=== PATIENT | female | born 1995 | race Caucasian/White ===

== ENCOUNTER 2017-04-24 23:16 | Outpatient (CLI) | payer OTHER, SELFPAY ==
[2017-04-25 00:21] VITALS: BMI 21.2
[2017-04-25 00:58] LABS: Microscopic, Urine URINE MICROSCOPIC (MICROSCOPIC)
[2017-04-25 01:02] VITALS: BP 108/64; PULSE 91; RESP 16; TEMP 36.8; O2SAT 97; BMI 21.2
[2017-04-25 01:05] LABS: Appearance,Urine CLEAR (Clear); Bilirubin,Urine Negative (Negative); Blood, Urine Negative (Negative); Color,Urine YELLOW (Yellow); Glucose,Urine (UA) Negative (Negative); Ketones,Urine Negative (Negative); Leukocyte Esterase,Urine Negative (Negative); Nitrate,Urine Negative (Negative); Protein,Urine Negative (Negative); Urobilinogen,Urine 0.2 EU/dl (0.2)
[2017-04-25 01:10] LABS: Amphetamine/Metha Screen,Urine Negative ng/mL (<1000); Barbiturates Screen,Urine Negative ng/mL (<200); Benzodiazepines Screen,Urine Negative ng/mL (200); Cannabinoid Screen,Urine Negative ng/mL (<50); Cocaine Screen,Urine Negative ng/g (<300); Methadone Screen,Urine Negative ng/mL (<300); Opiate Screen,Urine Negative ng/mL (<300); Phencyclidine Screen,Urine Negative ng/mL (<25)
[2017-04-25 01:13] LABS: Bacteria,Urine 1+ /lpf
== END 2017-04-25 01:35 | disposition home or self-care (01) ==
LOC: OBOUT 23:16 → OB 23:17 → OBOUT 23:21 → OB 04-25 00:17
PROVIDERS: Family Provider Internal Medicine; PCP Internal Medicine; Visit Provider Nurse Practitioner Obstetrics & Gynecology
DX: Z34.90 Encounter for supervision of normal pregnancy, unspecified, unspecified trimester (principal)
CPT/HCPCS: 59025; 80305; 81001

== ENCOUNTER → 2017-05-13 16:23 | Outpatient (REF) | payer OTHER, SELFPAY | LOC: LAB 16:23 | PROVIDERS: Visit Provider Obstetrics & Gynecology | DX: Z36.85 Encounter for antenatal screening for Streptococcus B (principal) | CPT/HCPCS: 86403 ==

== ENCOUNTER 2017-05-23 21:43 | Outpatient (CLI) | payer OTHER, SELFPAY ==
[2017-05-23 21:58] VITALS: BMI 23.3
[2017-05-23 22:10] VITALS: BP 100/66; PULSE 97; RESP 18; TEMP 36.7; O2SAT 98; BMI 23.3
[2017-05-23 22:38] LABS: Microscopic, Urine URINE MICROSCOPIC (MICROSCOPIC)
[2017-05-23 22:39] LABS: Appearance,Urine CLEAR (Clear); Bilirubin,Urine Negative (Negative); Blood, Urine Negative (Negative); Color,Urine YELLOW (Yellow); Glucose,Urine (UA) Negative (Negative); Ketones,Urine Negative (Negative); Leukocyte Esterase,Urine Negative (Negative); Nitrate,Urine Negative (Negative); Protein,Urine Negative (Negative); Urobilinogen,Urine 0.2 EU/dl (0.2)
[2017-05-23 22:52] LABS: Amphetamine/Metha Screen,Urine Negative ng/mL (<1000); Barbiturates Screen,Urine Negative ng/mL (<200); Benzodiazepines Screen,Urine Negative ng/mL (200); Cannabinoid Screen,Urine Negative ng/mL (<50); Cocaine Screen,Urine Negative ng/g (<300); Methadone Screen,Urine Negative ng/mL (<300); Opiate Screen,Urine Negative ng/mL (<300); Phencyclidine Screen,Urine Negative ng/mL (<25)
== END 2017-05-24 00:01 | disposition home or self-care (01) ==
LOC: OBOUT 21:49 → OB 21:50
PROVIDERS: PCP Obstetrics & Gynecology; Visit Provider Obstetrics & Gynecology
DX: O26.893 Other specified pregnancy related conditions, third trimester (principal); Z3A.37 37 weeks gestation of pregnancy; M54.5 Low back pain
CPT/HCPCS: 59025; 80305; 81001; 96372

== ENCOUNTER 2017-05-30 17:14 | Outpatient (CLI) | payer OTHER, SELFPAY ==
[2017-05-30 17:45] VITALS: BP 115/61; PULSE 78; RESP 20; TEMP 36.7; O2SAT 100; BMI 21.2
[2017-05-30 18:54] LABS: Microscopic, Urine URINE MICROSCOPIC (MICROSCOPIC)
[2017-05-30 19:03] LABS: Appearance,Urine CLEAR (Clear); Bilirubin,Urine Negative (Negative); Blood, Urine Negative (Negative); Color,Urine YELLOW (Yellow); Glucose,Urine (UA) Negative (Negative); Ketones,Urine Negative (Negative); Leukocyte Esterase,Urine Negative (Negative); Nitrate,Urine Negative (Negative); PH,Urine 7.5 (5.0-8.5); Protein,Urine Negative (Negative); Specific Gravity, Urine 1.015 (1.005-1.030); Urobilinogen,Urine 0.2 EU/dl (0.2)
--- NOTE | 2017-05-30 19:07 | US_ITS ---
US OB biophysical profile INDICATION: ITS.REASON: DECELERATIONS . TECHNIQUE: ultrasound transabdominal scanning/ MW COMPARISON: No previous relevant studies FINDINGS Single viable intrauterine gestation. Cephalic position. The cervix appears satisfactory. Complete survey performed and was unremarkable on the submitted images as in PACS.No discrete anomalies identified on survey imaging by technologist Active fetus. . . Survey of brain & ventricles. Face and neck survey unremarkable. Diaphragm & views chest unremarkable. . spine: Survey of the spine satisfactory with no anomalies identified nor imaged Amniotic fluid.-Adequate. The AUBREY is 11.0 cm measurements:. Average ultrasound age 35 weeks 4 days. Gestational age 38 weeks 3 days. BPD = 8.4 cm equaling 33 weeks 6 days. OFD = 11.21 cm equaling 37 weeks 1 day HC = 31.12 cm equaling 34 weeks 6 days AC = 31.77 cm equaling 35 weeks 5 days FL = 7.36 and basically 37 weeks 5 days Heart rate = not measured. Umbilical artery peak systolic velocity is 38.8 cm/s and end-diastolic velocity is 16.4 cm/s. The RI is 0.58 and SD ratio is 2.4 The biophysical profile is 8 out of 8 IMPRESSION: Single viable intrauterine gestation in cephalic position currently. 35 weeks 4 daysaverage ultrasound age with today's measurements Anterior placenta. Active fetus. No discrete abnormalities on the ultrasound survey.
[2017-05-30 19:17] LABS: Basophils % 0.2 % (0.1-2.0); Eosinophils # 0.1 K/mm3 (0.0-0.4); Eosinophils % 0.6 % (0.1-12.0); Hematocrit 36.3 % (37.0-47.0); Hemoglobin 12.5 g/dL (12.2-16.2); Lymphocytes # 3.2 K/mm3 (0.7-4.5); Lymphocytes % 23.7 K/mm3 (10-50); Mean Corpuscular HGB Conc 34.6 g/dL (31.8-35.4); Mean Corpuscular Hemoglobin 32.6 pg (27.0-31.2); Mean Corpuscular Volume 94.4 fl (81-99); Mean Platelet Volume 9.7 fl (7.4-10.4); Monocytes # 0.5 K/mm3 (0.1-1.0); Neutrophils # 9.5 K/mm3 (1.8-7.8); Neutrophils % 71.5 % (37.0-80.0); Platelet Count 266 K/mm3 (142-424); Red Blood Count 3.84 M/mm3 (4.20-5.40); Red Cell Distribution Width 13.4 % (11.5-17.5); White Blood Count 13.3 K/mm3 (4.8-10.8)
[2017-05-30 19:49] LABS: Bacteria,Urine Trace /lpf; WBC,Urine Occasional #/hpf (0-3)
--- NOTE | 2017-05-30 20:00 | HMH.ACPN2 ---
Internal Medicine - PN: Subj *Date: 05/30/17 *Time: 20:00 Interval history: She is a 21-year-old 2 para 1 who was having a few contractions. She was out walking quite a bit this afternoon. She came into labor and delivery. She is due for a repeat section in about 5 days time. Her nonstress test was reactive although she did have a couple of variable decelerations to the 90 range and they lasted for up to 2 minutes. They have since recovered. She has received IV fluids 1 dose of Brethine. She is no longer having any contractions. The nonstress test is reactive and looks very good. She had an ultrasound that showed adequate fluid with an amniotic fluid index of 11 there was good breathing movements and movement. The SD ratio is normal. As result of the now reassuring heart rate tracing, the fact that she has no further contractions and the fact that the ultrasound showed good growth and fluid levels we will send her home to follow-up on Friday for her . She will return if she has any further episodes of contractions. Analysis is negative. Exam Vital signs and Labs for Last 24 Hours: Temp Pulse Resp BP Pulse Ox 98.0 F 78 20 115/61 100 05/30/17 17:45 05/30/17 17:45 05/30/17 17:45 05/30/17 17:45 05/30/17 17:45 Laboratory Results - last 24 hr 05/30/17 17:25: Urine Color Yellow, Urine Appearance Clear, Urine pH 7.5, Ur Specific [place] 1.015, Urine Protein Negative, Urine Glucose (UA) Negative, Urine Ketones Negative, Urine Blood Negative, Urine Nitrate Negative, Urine Bilirubin Negative, Urine Urobilinogen 0.2, Ur Leukocyte Esterase Negative, Urine RBC None, Urine WBC Occasional, Ur Squamous Epith Cells 10-20, Urine Bacteria Trace 05/30/17 19:00: WBC 13.3 H, RBC 3.84 L, Hgb 12.5, Hct 36.3 L, MCV 94.4, MCH 32.6 H, MCHC 34.6, RDW 13.4, Plt Count 266, MPV 9.7, Neut % (Auto) 71.5, Lymph % (Auto) 23.7, Ada % (Auto) 4.0, Eos % (Auto) 0.6, Baso % (Auto) 0.2, Neut # (Auto) 9.5 H, Lymph # (Auto) 3.2, Ada # (Auto) 0.5, Eos # (Auto) 0.1, Baso # (Auto) 0.0 I & O for Last 24 hours: Intake & Output 05/28/17 05/29/17 05/30/17 05/31/17 11:59 11:59 11:59 11:59 Weight 120 lb - Constitutional no acute distress Assessment and Plan (1) False labor after 37 completed weeks of gestation Current visit: Yes Status: Acute Category: Medical Code(s): O47.1 - False labor at or after 37 completed weeks of gestation - Assessment and plan all Dx Assessment and Plan for all problems:: She has received fluids and 1 dose of Brethine. She is no longer erik. The nonstress test is reactive. The ultrasound is reassuring with good growth, normal amniotic fluid and biophysical profile. She will be discharged home to follow-up in 5 days time for her .
--- NOTE | 2017-05-30 20:03 | P.PN_ITS ---
Internal Medicine - PN: Subj *Date: 05/30/17 *Time: 20:00 Interval history: She is a 21-year-old 2 para 1 who was having a few contractions. She was out walking quite a bit this afternoon. She came into labor and delivery. She is due for a repeat section in about 5 days time. Her nonstress test was reactive although she did have a couple of variable decelerations to the 90 range and they lasted for up to 2 minutes. They have since recovered. She has received IV fluids 1 dose of Brethine. She is no longer having any contractions. The nonstress test is reactive and looks very good. She had an ultrasound that showed adequate fluid with an amniotic fluid index of 11 there was good breathing movements and movement. The SD ratio is normal. As result of the now reassuring heart rate tracing, the fact that she has no further contractions and the fact that the ultrasound showed good growth and fluid levels we will send her home to follow-up on Friday for her C- section. She will return if she has any further episodes of contractions. Analysis is negative. Exam Vital signs and Labs for Last 24 Hours: Temp Pulse Resp BP Pulse Ox 98.0 F 78 20 115/61 100 05/30/17 17:45 05/30/17 17:45 05/30/17 17:45 05/30/17 17:45 05/30/17 17:45 Laboratory Results - last 24 hr 05/30/17 17:25: Urine Color Yellow, Urine Appearance Clear, Urine pH 7.5, Ur Specific [place] 1.015, Urine Protein Negative, Urine Glucose (UA) Negative, Urine Ketones Negative, Urine Blood Negative, Urine Nitrate Negative, Urine Bilirubin Negative, Urine Urobilinogen 0.2, Ur Leukocyte Esterase Negative, Urine RBC None, Urine WBC Occasional, Ur Squamous Epith Cells 10-20, Urine Bacteria Trace 05/30/17 19:00: WBC 13.3 H, RBC 3.84 L, Hgb 12.5, Hct 36.3 L, MCV 94.4, MCH 32.6 H, MCHC 34.6, RDW 13.4, Plt Count 266, MPV 9.7, Neut % (Auto) 71.5, Lymph % (Auto) 23.7, [place] % (Auto) 4.0, Eos % (Auto) 0.6, Baso % (Auto) 0.2, Neut # ( Auto) 9.5 H, Lymph # (Auto) 3.2, [place] # (Auto) 0.5, Eos # (Auto) 0.1, Baso # ( Auto) 0.0 I & O for Last 24 hours: Intake & Output 05/28/17 05/29/17 05/30/17 05/31/17 11:59 11:59 11:59 11:59 Weight 120 lb - Constitutional no acute distress Assessment and Plan (1) False labor after 37 completed weeks of gestation Current visit: Yes Status: Acute Category: Medical Code(s): O47.1 - False labor at or after 37 completed weeks of gestation - Assessment and plan all Dx Assessment and Plan for all problems:: She has received fluids and 1 dose of Brethine. She is no longer erik. The nonstress test is reactive. The ultrasound is reassuring with good growth, normal amniotic fluid and biophysical profile. She will be discharged home to follow-up in 5 days time for her .
== END 2017-05-30 22:08 | disposition home or self-care (01) ==
LOC: OBOUT 17:15 → OB 17:17
PROVIDERS: PCP Obstetrics & Gynecology; Visit Provider Nurse Practitioner Obstetrics & Gynecology
DX: O60.03 Preterm labor without delivery, third trimester (principal); Z3A.38 38 weeks gestation of pregnancy
CPT/HCPCS: 36415; 59025; 76819; 76820; 81001; 85025; 86850; 94761; 96360; 96361; 96372; J0595

== ENCOUNTER 2017-06-03 04:58 | Inpatient (IN) | payer OTHER, SELFPAY ==
[2017-06-03] VITALS (11 sets, daily range): BP systolic 110–125; BP diastolic 55–75; PULSE 59–82; RESP 14–18; TEMP 36.3–37; O2SAT 97–100; BMI 22.1; BMI 22.2
[2017-06-03 06:34] LABS: Basophils % 0.3 % (0.1-2.0); Eosinophils # 0.1 K/mm3 (0.0-0.4); Eosinophils % 0.6 % (0.1-12.0); Hematocrit 33.9 % (37.0-47.0); Hemoglobin 11.5 g/dL (12.2-16.2); Lymphocytes # 2.2 K/mm3 (0.7-4.5); Lymphocytes % 20.9 K/mm3 (10-50); Mean Corpuscular Hemoglobin 31.9 pg (27.0-31.2); Mean Corpuscular Volume 93.8 fl (81-99); Monocytes # 0.5 K/mm3 (0.1-1.0); Monocytes % 4.6 % (1.7-9.3); Neutrophils # 7.9 K/mm3 (1.8-7.8); Neutrophils % 73.6 % (37.0-80.0); Platelet Count 263 K/mm3 (142-424); Red Blood Count 3.61 M/mm3 (4.20-5.40); Red Cell Distribution Width 13.4 % (11.5-17.5); White Blood Count 10.7 K/mm3 (4.8-10.8)
[2017-06-03 06:46] LABS: Appearance,Urine CLEAR (Clear); Bilirubin,Urine Negative (Negative); Blood, Urine Negative (Negative); Color,Urine YELLOW (Yellow); Glucose,Urine (UA) Negative (Negative); Ketones,Urine Negative (Negative); Leukocyte Esterase,Urine Negative (Negative); Microscopic, Urine URINE MICROSCOPIC (MICROSCOPIC); Nitrate,Urine Negative (Negative); Protein,Urine Negative (Negative); Urobilinogen,Urine 0.2 EU/dl (0.2)
[2017-06-03 06:48] LABS: Alanine Aminotransferase 13 U/L (12-78); Albumin Level 2.7 gm/dL (3.4-5.0); Albumin/Globulin Ratio 0.7 (1.1-1.8); Alkaline Phosphatase 116 U/L (46-116); Anion Gap 13.7 mEq/L (5-15); Aspartate Amino Transferase 6 U/L (15-37); Bilirubin,Total 0.2 mg/dL (0.2-1.0); Blood Urea Nitrogen 8 mg/dL (7-18); Calcium 8.7 mg/dL (8.5-10.1); Carbon Dioxide 22 mmol/L (21.0-32.0); Chloride 106 mmol/L (98-107); Creatinine Clearance Estimated 140 mL/min (0-300); Creatinine,Serum 0.57 mg/dL (0.55-1.02); Estimated Glomerular Filt Rate 134 ml/min (>60); GFR (African American) 162 ML/MIN (>60); Glucose 88 mg/dL (74-106); Potassium 3.7 mmoL/L (3.5-5.1); Sodium 138 mmol/L (136-145); Total Protein,Serum 6.7 gm/dL (6.4-8.2)
[2017-06-03 07:02] LABS: Bacteria,Urine Trace /lpf; Squamous Epithelial Cell,Urine Occasional #/hpf (0-5)
--- NOTE | 2017-06-03 07:07 | P.PN_ITS ---
[facility] Anesthesia Checklist - Structural Data Admitted From: Home Planned Operative Procedure/s: c/section Consent for Planned Operative Procedure(s) Verified: Yes Verified Documents: Surgical Consent - Airway Assessment C-Spine Mobility Assessed: Yes TMJ Mobility Assessed: Yes Dentition: Good Dentition - Neurological Assessment Level of Consciousness: Awake, Alert - Anesthesia Plan Anesthesia Risk discussed: Yes Anesthesia Plan: Verified ASA Class: II Anesthesia Type: Spinal [facility] Anesthesia HX Other Surgeries: Yes: No Previous Surgery, , Other Amputation: No Fractures: No *Family Hx:: No significant family history, Hypertension
[2017-06-03 07:39] LABS: Cord Blood PH 7.46 (7.35-7.45)
--- NOTE | 2017-06-03 08:10 | HMH.OPNOTE ---
Date of procedure: 06/03/17 Pre-op Diagnosis:: 1. Intrauterine . 2. Previous section. Post-op Diagnosis:: Same, 8/9, 6 lbs. 14 oz., 19 inch male , born at 0732. Extensive adhesions. Procedure performed:: Repeat low transverse cervical section and extensive lysis of adhesions. Surgeon:: Mesfin Carter MD Refractory Mixer(s):: YULIA Kendall CONTACT LENS EDGE BUFFER:: Otto Quintanilla Anesthesia: spinal Estimated blood loss (mL): 400 Operative findings:: 1. Term intrauterine , delivered. 2. Operative note:: After the patient was prepped and draped in usual fashion and spinal anesthesia was admitted incision was made to the previous incision, and the fat and fascia was in usual fashion, bleeders being clamped and coagulated along the way. The peritoneum was entered with Metzenbaum scissors, and extended above and below. There were extensive omental adhesions to the anterior abdominal wall, and these were taken down with a combination of sharp dissection and cautery. The bladder peritoneum was sharply and bluntly dissected from the area of incision, and the bladder was protected with a bladder blade. The uterus was entered in a low transverse fashion with a knife, and the incision was extended bluntly, bilaterally. The amniotic sac was ruptured for clear fluid. The baby was found to be in the OA position of the vertex and, with appropriate fundal pressure, the head was easily delivered. There was no nuchal cord, nor was there any meconium. The baby's nasal and oropharynx were bulb suctioned, and the baby cried spontaneously on the abdomen, as was the liver. The cord was clamped and cut, 3 vessels are noted to be within the cord, and cord blood was obtained. The cord pH was 7.46. The baby was handed into the arms of the attending massage therapy instructor, Dr. Kelley, who assigned Apgars of 8 at 1 minute and 914 ounce 19 inch male , born at 0732. The baby was taken to the nursery in excellent condition, along with the patient's mother, would been present in the operating room. The placenta was delivered manually, intact. A ring forceps was used to assure adequate drainage of the cervix; this was then passed off the field, as a nonsterile instrument. The uterus was closed in 2 layers, the first a running locked suture of #1 Vicryl as an endometrial layer, followed by a running unlocked suture of #1 Vicryl as a myometrial layer, imbricating over the first. The bladder peritoneum was closed with a running unlocked suture of 2-0 Vicryl. Blood and clots were then swept from the gutters, and the tubes and ovaries were inspected and found to be normal. The peritoneum was grasped with 3 Anita clamps, and closed with a running semi-locked suture of 0 Vicryl. The muscle was approximated with a running unlocked suture of 0 Vicryl. The fascia was closed with a running locked suture of #1 Vicryl. The subcutaneous fat and Jerad's fascia were closed with a running unlocked suture of 2-0 Vicryl. The skin was closed with a subcuticular suture of 3-0 Vicryl, and appropriately dressed. The sponge and needle counts correct. The urine was clear in Morillo catheter. The estimated blood loss was 400 cc. A pelvic examination at the close of the procedure expressed blood and clots from the involuting uterus, with IV Pitocin running. The patient tolerated the procedure well, was taken to PACU in excellent condition. Her blood type is A+. Rubella titer is immune. She plans to breast-feed. Condition: stable Disposition: PACU Specimens:: None Complications:: None
--- NOTE | 2017-06-03 08:11 | P.PN_ITS ---
[facility] Anesthesia Record Part I Intake, IV Amount: 1,300 Estimated blood loss (mL): 600 Urine output (mL): 450 Blood Pressure: 110/72 SaO2: 100 Pulse Rate: 82 Respiratory Rate: 14 Temperature: 97.6 F Patient is:: Awake, Stable Stable to PACU at:: 08:10
--- NOTE | 2017-06-03 08:11 | HMH.ANESII ---
[facility] Anesthesia Record Part II Discharge Time: 08:40 Destination: Obstetric PACU nurse assessment reviewed?: Yes Patient Condition:: Good Anesthesia Complications:: None
--- NOTE | 2017-06-03 08:15 | P.OP_ITS ---
Date of procedure: 06/03/17 Pre-op Diagnosis:: 1. Intrauterine . 2. Previous section. Post-op Diagnosis:: Same, 8/9, 6 lbs. 14 oz., 19 inch male , born at 0732. Extensive adhesions. Procedure performed:: Repeat low transverse cervical section and extensive lysis of adhesions. Surgeon:: Mesfin Carter MD Bush Regenerator(s):: YULIA Kendall [employer]ENHADEN [employer] MEMBER:: Otto Quintanilla Anesthesia: spinal Estimated blood loss (mL): 400 Operative findings:: 1. Term intrauterine , delivered. 2. Operative note:: After the patient was prepped and draped in usual fashion and spinal anesthesia was admitted incision was made to the previous incision, and the fat and fascia was in usual fashion, bleeders being clamped and coagulated along the way. The peritoneum was entered with Metzenbaum scissors, and extended above and below. There were extensive omental adhesions to the anterior abdominal wall, and these were taken down with a combination of sharp dissection and cautery. The bladder peritoneum was sharply and bluntly dissected from the area of incision, and the bladder was protected with a bladder blade. The uterus was entered in a low transverse fashion with a knife, and the incision was extended bluntly, bilaterally. The amniotic sac was ruptured for clear fluid. The baby was found to be in the OA position of the vertex and, with appropriate fundal pressure, the head was easily delivered. There was no nuchal cord, nor was there any meconium. The baby's nasal and oropharynx were bulb suctioned, and the baby cried spontaneously on the abdomen, as was the liver. The cord was clamped and cut, 3 vessels are noted to be within the cord , and cord blood was obtained. The cord pH was 7.46. The baby was handed into the arms of the attending construction site crossing guard, Dr. Kelley, who assigned Apgars of 8 at 1 minute and 914 ounce 19 inch male , born at 0732. The baby was taken to the nursery in excellent condition, along with the patient's mother, would been present in the operating room. The placenta was delivered manually, intact. A ring forceps was used to assure adequate drainage of the cervix; this was then passed off the field, as a nonsterile instrument. The uterus was closed in 2 layers, the first a running locked suture of #1 Vicryl as an endometrial layer, followed by a running unlocked suture of #1 Vicryl as a myometrial layer, imbricating over the first. The bladder peritoneum was closed with a running unlocked suture of 2-0 Vicryl. Blood and clots were then swept from the gutters, and the tubes and ovaries were inspected and found to be normal. The peritoneum was grasped with 3 Anita clamps, and closed with a running semi-locked suture of 0 Vicryl. The muscle was approximated with a running unlocked suture of 0 Vicryl. The fascia was closed with a running locked suture of #1 Vicryl. The subcutaneous fat and Jerad's fascia were closed with a running unlocked suture of 2-0 Vicryl. The skin was closed with a subcuticular suture of 3-0 Vicryl, and appropriately dressed. The sponge and needle counts correct. The urine was clear in Morillo catheter. The estimated blood loss was 400 cc. A pelvic examination at the close of the procedure expressed blood and clots from the involuting uterus, with IV Pitocin running. The patient tolerated the procedure well, was taken to PACU in excellent condition. Her blood type is A+. Rubella titer is immune. She plans to breast -feed. Condition: stable Disposition: PACU Specimens:: None Complications:: None
[2017-06-03 09:16] LABS: Hematocrit 36.6 % (37.0-47.0); Hemoglobin 12.4 g/dL (12.2-16.2)
--- NOTE | 2017-06-03 09:54 | SUR.OPER ---
0732-viable infant male born at this time
--- NOTE | 2017-06-03 10:14 | PC.NURSE ---
started per SILVER Garcia
[2017-06-03 11:54] LABS: Microscopic,Cath URINE MICROSCOPIC (MICROSCOPIC)
[2017-06-03 11:56] LABS: Appearance,Urine/Cath CLEAR (Clear); Bilirubin,Cath Negative (Negative); Blood, Urine/Cath Negative (Negative); Color,Urine/Cath YELLOW (Yellow); Glucose,Urine/Cath (UA) Negative (Negative); Ketones,Urine/Cath Negative (Negative); Leukocyte Esterase,Cath Negative (Negative); Nitrate,Cath Negative (Negative); Protein,Urine/Cath Negative (Negative); Specific Gravity, Urine/Cath <= 1.005 (1.005-1.030); Urobilinogen,Cath 0.2 EU/dl (0.2)
[2017-06-03 12:09] LABS: Bacteria,Urine/Cath TRACE /lpf; WBC,Urine/Cath Occasional #/hpf (0-3)
--- NOTE | 2017-06-03 13:48 | HMH.PHAVTE ---
[facility] Pharmacy VTE Monitoring - Patient Demographics Admission date: 06/03/17 Report Date: 06/03/17 Time: 13:48 Allergies/Adverse Reactions: Patient Allergies kiwi Allergy (Mild, Verified 05/26/17 13:42) latex Allergy (Mild, Verified 05/26/17 13:42) Height: 1.6 m Weight: 56.961 kg - VTE Risk Labs: VTE Related Lab Results Hgb 12.4 g/dL (12.2-16.2) 06/03/17 09:01 Hct 36.6 % (37.0-47.0) L 06/03/17 09:01 Plt Count 263 K/mm3 (142-424) 06/03/17 05:20 BUN 8 mg/dL (7-18) 06/03/17 05:20 Creatinine 0.57 mg/dL (0.55-1.02) 06/03/17 05:20 Estimated Creat Clear 140 mL/min (0-300) 06/03/17 05:20 - Prophylaxis VTE Prophylaxis Ordered?: Yes Types of VTE Prophylaxis: IPCS Knee High Location of Applied Device: Bilateral Lower Extremeties - VTE Diagnosis Confirmed Treatment or plan recommended: Continue Current Treatment
--- NOTE | 2017-06-03 19:30 | PC.NURSE ---
Report received from Sushant Sharma RN
--- NOTE | 2017-06-04 00:30 | PC.NURSE ---
Report received from AwildaRN
--- NOTE | 2017-06-04 07:09 | PC.NURSE ---
REPORT GIVEN TO SBRN
[2017-06-04 07:42] LABS: Hematocrit 33.3 % (37.0-47.0); Hemoglobin 11.4 g/dL (12.2-16.2)
--- NOTE | 2017-06-04 11:12 | SW/DCPLANNER ---
RECEIVED REFERRAL FOR THIS PATIENT WHO DELIVERED A LIVE BORN MAKE VIA STATING VERIFY THAT PATIENT HAS EVERYTHING SHE NEEDS TO DISCHARGE HOME.... WENT IN TO SEE PATIENT THIS MORNING, PATIENT WAS ON THE PHONE, BABY'S DADDY WAS A SLEEP AND GRANDFATHER WAS SITTING IN THE CHAIR BY PATIENT... SHE STATED SHE LIVES IN [place] WITH HER PARENTS AND IS GOING TO RETURN BACK THERE WITH THEM, SHE HAS A ONE YEAR OLD DAUGHTER AND SHE RECEIVES WIC, FOODSTAMPS AND HANDS PROGRAM.. SHE CHOSE DR CORDOVA THE BABYS DOCTOR. SHE HAS NO DRUG HISTORY DOCUMENTED BUT PATIENT SEEMS TO BE SIMPLE MINDED. WILL FOLLOW UP WITH PRO[employer] INSPECT[employer] TO SEE IF THEY HAVE ANYTHING ON THE OTHER CHILD SINCE I AM NOT SURE SHE HAS THE CAPABILITIES OF CARING FOR 2 BABYS... HER DISCHARGE PLAN IS FOR FRIDAY AT THIS TIME...
--- NOTE | 2017-06-04 11:41 | HMH.ACPN2 ---
Internal Medicine - PN: Subj *Date: 06/04/17 *Time: 11:41 Interval history: This is /postop day #1. The patient is afebrile. Vital signs stable. Wound clean. Abdomen soft. Lochia normal. Uterine fundus involuting well. Hemoglobin 11.4 g. She is eating and ambulating. The baby is doing well. Impression: Stable. Exam Vital signs and Labs for Last 24 Hours: Temp Pulse Resp BP Pulse Ox 98.6 F 65 18 116/55 97 06/03/17 16:00 06/03/17 16:00 06/03/17 16:00 06/03/17 16:00 06/03/17 16:00 Laboratory Results - last 24 hr 06/03/17 07:21: Urine Color Yellow, Urine Appearance Clear, Urine pH 7.0, Ur Specific [place] <= 1.005, Urine Protein Negative, Urine Glucose (UA) Negative, Urine Ketones Negative, Urine Blood Negative, Urine Nitrate Negative, Urine Bilirubin Negative, Urine Urobilinogen 0.2, Ur Leukocyte Esterase Negative, Urine RBC None, Urine WBC Occasional, Ur Squamous Epith Cells None, Urine Bacteria Trace 06/04/17 06:55: Hgb 11.4 L, Hct 33.3 L I & O for Last 24 hours: Intake & Output 06/01/17 06/02/17 06/03/17 06/04/17 11:59 11:59 11:59 11:59 Intake Total 1650 / 1650 1280 / 1280 Output Total 610 / 610 900 / 900 Balance 1040 / 1040 380 / 380 Weight 125 lb 9.245 oz 125 lb 9.245 oz
--- NOTE | 2017-06-05 06:19 | HMH.ACPN2 ---
Internal Medicine - PN: Subj *Date: 06/05/17 *Time: 06:19 Interval history: This is /postop day #2. The patient is afebrile. Vital signs stable. Wound clean. Abdomen soft. Lochia normal. Uterine fundus involuting well. She is eating and ambulating and passing flatus. Impression: Stable. Exam Vital signs and Labs for Last 24 Hours: Temp Pulse Resp BP Pulse Ox 97.8 F 78 18 111/61 98 06/03/17 21:38 06/03/17 21:38 06/03/17 21:38 06/03/17 21:38 06/03/17 21:38 Laboratory Results - last 24 hr 06/04/17 06:55: Hgb 11.4 L, Hct 33.3 L I & O for Last 24 hours: Intake & Output 06/02/17 06/03/17 06/04/17 06/05/17 11:59 11:59 11:59 11:59 Intake Total 1650 / 1650 1280 / 1280 Output Total 610 / 610 900 / 900 Balance 1040 / 1040 380 / 380 Weight 125 lb 9.245 oz 125 lb 9.245 oz
[2017-06-05 07:45] VITALS: BP 107/67; PULSE 78; RESP 16; TEMP 36.6; O2SAT 100
[2017-06-05 20:30] VITALS: BP 110/55; PULSE 61; RESP 16; TEMP 36.6; O2SAT 98
--- NOTE | 2017-06-06 06:55 | HMH.ACPN2 ---
Internal Medicine - PN: Subj *Date: 06/06/17 *Time: 06:55 (This is /postop day #3. The patient is afebrile. Vital signs stable. Wound clean. Abdomen soft. Lochia normal. Uterine fundus involuting well. She is breast-feeding. She will be discharged today.) Exam Vital signs and Labs for Last 24 Hours: Temp Pulse Resp BP Pulse Ox 97.9 F 61 16 110/55 98 06/05/17 20:30 06/05/17 20:30 06/05/17 20:30 06/05/17 20:30 06/05/17 20:30 I & O for Last 24 hours: Intake & Output 06/03/17 06/04/17 06/05/17 06/06/17 11:59 11:59 11:59 11:59 Intake Total 1650 / 1650 1280 / 1280 Output Total 610 / 610 900 / 900 Balance 1040 / 1040 380 / 380 Weight 125 lb 9.245 oz 125 lb 9.245 oz
--- NOTE | 2017-06-06 07:04 | P.DS_ITS ---
General - General Admission date: 06/03/17 Discharge date: 06/06/17 (This 21-year-old 2, now para 2, Ab0 white female was admitted at 39 weeks of gestation for repeat section. On the date of admission, she was taken to the operating room, where she under went the procedure, without complications. The baby was an 8/9, 6 lbs. 14 oz., 19 inch male infant, born at 0732 on 06/03/17. The baby is breast- feeding, has been circumcised, and is done well. , the patient is done well. She is eating and ambulating, and has had a bowel movement. Her wound is clean. Her abdomen is soft. Her lochia is normal. Her uterine fundus is involuting well. She is not a smoker. She is discharged home on the third /postoperative day on iron and vitamins (hemoglobin 11.4 g, but clinically stable), and on Percocet 5/325 (#20), 1 p.o. every 6 hours as needed pain. She is given appropriate instructions as to diet, exercise, and wound care, and she is to return the office in 2 weeks for follow-up. Her blood type is A+. Her rubella titer is immune.) Objective Vital signs: Temp Pulse Resp BP Pulse Ox 97.9 F 61 16 110/55 98 06/05/17 20:30 06/05/17 20:30 06/05/17 20:30 06/05/17 20:30 06/05/17 20:30 Discharge Plan - Patient Discharge Instructions - Follow up Plan Home Medications: Home Medications Medication Instructions Recorded Confirmed Type No Known Home Medications [No 05/30/17 06/03/17 History Known Home Medications] Prescriptions/Medication Reconciliation: No Action No Known Home Medications [No Known Home Medications]
== END 2017-06-06 10:20 | disposition home or self-care (01) | DRG 766 ==
PROVIDERS: Admitting Provider Obstetrics & Gynecology; Family Provider Internal Medicine; PCP Obstetrics & Gynecology; Visit Provider Obstetrics & Gynecology
PROC: 10D00Z1 Extraction of Products of Conception, Low, Open Approach (ICD-10-PCS; CPT 59514; principal; 2017-06-03 07:30)
DX: O34.211 Maternal care for low transverse scar from previous cesarean delivery (principal); N85.8 Other specified noninflammatory disorders of uterus; Z3A.39 39 weeks gestation of pregnancy; Z37.0 Single live birth
CPT/HCPCS: 59514; 36415; 59025; 80053; 81001; 82800; 85014; 85018; 85025; 86850

== ENCOUNTER 2018-06-26 00:48 | Outpatient (CLI) | payer OTHER, SELFPAY ==
[2018-06-26 01:11] VITALS: BMI 20.9
[2018-06-26 01:30] LABS: Microscopic, Urine URINE MICROSCOPIC (MICROSCOPIC)
[2018-06-26 01:32] LABS: Appearance,Urine CLEAR (Clear); Bilirubin,Urine Negative (Negative); Blood, Urine Negative (Negative); Color,Urine YELLOW (Yellow); Glucose,Urine (UA) Negative (Negative); Ketones,Urine Negative (Negative); Leukocyte Esterase,Urine Negative (Negative); Nitrate,Urine Negative (Negative); PH,Urine 6.5 (5.0-8.5); Protein,Urine Negative (Negative); Urobilinogen,Urine 0.2 EU/dl (0.2)
[2018-06-26 01:51] LABS: Amphetamine/Metha Screen,Urine Negative ng/mL (<1000); Barbiturates Screen,Urine Negative ng/mL (<200); Benzodiazepines Screen,Urine Negative ng/mL (<200); Cannabinoid Screen,Urine Negative ng/mL (<50); Cocaine Screen,Urine Negative ng/mL (<300); Methadone Screen,Urine Negative ng/mL (<300); Opiate Screen,Urine Negative ng/mL (<300); Phencyclidine Screen,Urine Negative ng/mL (<25)
[2018-06-26 02:03] LABS: Bacteria,Urine Trace /lpf; RBC,Urine Occasional #/hpf (0-3)
== END 2018-06-26 02:12 | disposition home or self-care (01) ==
LOC: OBOUT 00:50 → OB 00:50
PROVIDERS: Visit Provider Obstetrics & Gynecology
DX: O26.893 Other specified pregnancy related conditions, third trimester (principal); Z3A.31 31 weeks gestation of pregnancy
CPT/HCPCS: 59025; 80305; 81001

== ENCOUNTER 2019-11-28 21:56 | Emergency (ER) | payer OTHER, SELFPAY ==
[2019-11-28 22:06] VITALS: BP 118/67; PULSE 89; RESP 17; TEMP 36.8; O2SAT 98; BMI 21.2
--- NOTE | 2019-11-28 22:16 | XR_ITS ---
PROCEDURE: XR ANKLE RT MIN 3V CLINICAL INDICATION: fall Posttraumatic pain COMPARISON: No exams were available for comparison FINDINGS: No fracture or dislocation. No lytic or blastic change. There is normal mineralization. The joint spaces are well-preserved. No significant degenerative/arthritic changes. No erosive changes evident. Other findings:None. IMPRESSION: No acute findings. Dictated by: Rayumndo Hensley MD 11/29/2019 07:49 Raymundo Hensley MD in [place] 11/29/2019 07:49
--- NOTE | 2019-11-28 22:16 | XR_ITS ---
PROCEDURE: XR TIBIA FIBULA RT 2V CLINICAL INDICATION: fall Posttraumatic pain COMPARISON: CR XR ANKLE RT MIN 3V from 11/28/2019 FINDINGS: No fracture or dislocation. No lytic or blastic change. There is normal mineralization. The joint spaces are well-preserved. No significant degenerative/arthritic changes. No erosive changes evident. Other findings:None. IMPRESSION: No acute findings. Dictated by: Raymundo Hensley MD 11/29/2019 07:49 Raymundo Hensley MD in [place] 11/29/2019 07:49
--- NOTE | 2019-11-28 23:30 | HMH.EDLOEX ---
ED Disposition Clinical Impression: Right ankle sprain Qualifiers: Encounter type: initial encounter Involved ligament of ankle: unspecified ligament Qualified Code(s): S93.401A - Sprain of unspecified ligament of right ankle, initial encounter Disposition: Home, Self-Care Condition on Discharge: Good Instructions: DI for Ankle Sprain Additional Instructions: ice and advil/tyenol and see pcp for follow up Referrals: Bernardo Lr [Primary Care Provider] - Mara Ramirez DPM [Staff Physician] - - Critical Care Critical Care Time: No Attestation: On 11/28/19, the high probability of a clinically significant, sudden or life threatening deterioration of the following system(s) required my full and direct attention, intervention and personal management. The time I documented below is in addition to time spent performing reported procedures but includes the following listed in this critical care notation. Medical Decision Making - Medical Records Medical records reviewed: Yes: I reviewed the patient's medical records. - Yon Inquiry Pt receiving controlled substance: No Vital Signs: 11/28/19 22:06 Temperature 98.2 F Temperature Source Oral Pulse Rate [Right Brachial] 89 Respiratory Rate 17 Blood Pressure [Right Arm] 118/67 Blood Pressure Mean [Right Arm] 84 Blood Pressure Source [Right Arm] Automatic Cuff Blood Pressure Position [Right Arm] Sitting 02 Sat by Pulse Oximetry 98 Oxygen Delivery Method Room Air - Lab Data Lab results reviewed: Yes: I reviewed the patient's lab results. Orders (Tests/Meds): ED MEDICATIONS Discontinued Medications Generic Name Dose Route Start Last Admin Trade Name Freq PRN Reason Stop Dose Admin Hydrocodone Bitart/Acetaminophen 1 tab 11/28/19 22:16 11/28/19 22:21 [place] 5/325mg Tablet PO 11/28/19 22:17 1 tab ONCE ONE Administration Ibuprofen 600 mg 11/28/19 22:22 11/28/19 22:22 Motrin 600mg Tablet PO 11/28/19 22:23 600 mg ONCE ONE Administration ORDERS Category Date Time Status Ankle XR -Right minimum 3 Views [XR ankle RT min 3V] Exams 11/28/19 22:16 Taken Stat XR tibia fibula RT 2V Stat Exams 11/28/19 22:16 Taken - Radiology Data #1 Image(s): Tib/Fib, Ankle Image Reviewed: Yes I reviewed the patient's radiology image Preliminary Findings: No Fracture Seen Lower Extremity Injury HPI - General Chief Complaint: Fall Stated Complaint: AO 11/27 @ 1800 Twisted right ankle Time Seen by Provider: 11/28/19 23:00 Mode of Arrival: Family Vehicle Source of Information: Patient, Significant Other, Medical Record Limitations: No Limitations Description of Symptoms (Recalled from ER Triage Doc. by RN): fell in yard earlier this evening, injured right ankle. states she was running with a rake, her ankle bent and popped . currently complaining of non wt bearing pain. positive pedal and popliteal pulses noted. - History of Present Illness HPI Narrative: acute injury rt lower leg/ankle tonight complaint: leg injury, ankle injury Onset (ago): hour(s) Injury: Right: ankle Type of Injury: eversion Place: home Severity: moderate Associated symptoms: able to partially bear weight Other symptoms: none - Related Data Previous Rx's Medication Instructions Recorded cephALEXin [Keflex 500mg Cap] 500 mg PO TID #30 cap 05/11/19 Allergies Allergy/AdvReac Type Severity Reaction Status Date / Time kiwi Allergy Mild Verified 03/04/18 23:19 latex Allergy Mild Verified 03/04/18 23:19 [facility] History - Hepatitis A Screen Drug use history?: No High risk sexual behaviors?: No History of sexually transmitted infection?: No Currently employed?: No Childcare worker?: No Do you have indoor plumbing?: Yes Do you have electricity?: Yes Attestation statement:: This patient has been screened for Hepatitis A risk factors. I have reviewed the patient's past medical history: Yes Medical History: Denies:: Cancer, Di
[2019-11-28 23:37] VITALS: BP 132/70; PULSE 73; RESP 16; TEMP 36.8; O2SAT 98
== END 2019-11-28 23:42 | disposition home or self-care (01) ==
PROVIDERS: Emergency Provider Emergency Medicine; PCP Internal Medicine
DX: S93.401A Sprain of unspecified ligament of right ankle, initial encounter (principal); W01.0XXA Fall on same level from slipping, tripping and stumbling without subsequent striking against object, initial encounter; Y92.017 Garden or yard in single-family (private) house as the place of occurrence of the external cause; F17.210 Nicotine dependence, cigarettes, uncomplicated; Z91.040 Latex allergy status
CPT/HCPCS: 73590; 73610; 99282; 99283

== ENCOUNTER 2020-01-12 15:54 | Emergency (ER) | payer OTHER, SELFPAY ==
[2020-01-12 15:59] VITALS: BP 106/50; PULSE 86; RESP 16; TEMP 36.6; O2SAT 98; BMI 22.6
--- NOTE | 2020-01-12 16:04 | XR_ITS ---
PROCEDURE: XR KNEE RT 3V CLINICAL INDICATION: grinding and pain laterally COMPARISON: No exams were available for comparison FINDINGS: No fracture or dislocation. No lytic or blastic change. There is normal mineralization. The joint spaces are well-preserved. No significant degenerative/arthritic changes. No erosive changes evident. Other findings:None. IMPRESSION: No acute findings. Dictated by: Raymundo Hensley MD 01/12/2020 16:43 Raymundo Hensley MD in [place] 01/12/2020 16:43
--- NOTE | 2020-01-12 16:05 | HMH.EDEXTP ---
ED Disposition Clinical Impression: Right knee pain Qualifiers: Chronicity: acute Qualified Code(s): M25.561 - Pain in right knee Disposition: Home, Self-Care Condition on Discharge: Good Instructions: DI for Knee Pain Referrals: Bernardo Lr [Primary Care Provider] - 3 days - Critical Care Critical Care Time: No Attestation: On , the high probability of a clinically significant, sudden or life threatening deterioration of the following system(s) required my full and direct attention, intervention and personal management. The time I documented below is in addition to time spent performing reported procedures but includes the following listed in this critical care notation. Medical Decision Making - Medical Records Medical records reviewed: Yes: I reviewed the patient's medical records. - Yon Inquiry Pt receiving controlled substance: No Vital Signs: 01/12/20 15:59 Temperature 97.8 F Temperature Source Oral Pulse Rate [Right Radial] 86 Respiratory Rate 16 Blood Pressure [Right Arm] 106/50 L Blood Pressure Mean [Right Arm] 68 Blood Pressure Source [Right Arm] Automatic Cuff Blood Pressure Position [Right Arm] Sitting 02 Sat by Pulse Oximetry 98 Oxygen Delivery Method Room Air Orders (Tests/Meds): ORDERS Category Date Time Status Knee XR right 3 views [XR knee RT 3V] Stat Exams 01/12/20 16:04 Taken - Radiology Data #1 Image(s): Knee Image Reviewed: Yes I reviewed the patient's radiology image Preliminary Findings: Normal/NAD Medical Decision Narrative: X-ray with no acute fracture or dislocation. This is some crepitus on exam which may represent some patellofemoral syndrome type symptoms or early arthritis. This can be followed by primary care provider. There is no laxity to varus or valgus stress and negative anterior and posterior drawer. No signs of septic joint or joint effusion. Recommended anti-inflammatories and follow-up with PCP for further evaluation. Extremity Problem HPI - General Stated complaint: knee pain Time Seen by Provider: 01/12/20 16:06 Mode of Arrival: Ambulatory Source of Information: Patient Limitations: No Limitations - History of Present Illness HPI Narrative: This is a 24-year-old female with no significant past medical history who presents to the emergency department for a little over 1 month of lateral right knee pain that is grinding . It helps if she soaks in a bath. No fevers. She states a little over a month ago she fell and injured her foot/ankle and her knee did not really hurt at that time. However over the course of the last month in her recovery from her ankle/foot injury she has developed lateral right knee pain with a grinding sensation. Pain is worse with ambulation. She states that she cannot hold any of her kids, however she walks back to the room holding her child without any difficulty and no antalgic gait. - Related Data Previous Rx's Medication Instructions Recorded cephALEXin [Keflex 500mg Cap] 500 mg PO TID #30 cap 05/11/19 Allergies Allergy/AdvReac Type Severity Reaction Status Date / Time kiwi Allergy Mild Verified 03/04/18 23:19 latex Allergy Mild Verified 03/04/18 23:19 [facility] History - Hepatitis A Screen Attestation statement:: This patient has been screened for Hepatitis A risk factors. I have reviewed the patient's past medical history: Yes Medical History: Denies:: Cancer, Diabetes Mellitus Type 1, Diabetes Mellitus Type 2, MRSA Other Surgeries: Yes: No Previous Surgery, Tubal Ligation, Other. No: Amputation: No Fractures: No Comment: Primary --12/26/2015 - Social History Smoking Status: Current every day smoker Tobacco Type: cigarettes # Packs/Day (cigarettes): 1 #Yrs smoked (if former smoker): 0 Alcohol Intake: never Alcohol Intake Frequency:: other Substance Use Type: denies use Occupational Status: unemployed Housing: house Household Members: significant o
[2020-01-12 16:36] VITALS: BP 117/85; PULSE 90; RESP 16; TEMP 36.6; O2SAT 100
== END 2020-01-12 16:37 | disposition home or self-care (01) ==
LOC: ER 16:20
PROVIDERS: Emergency Provider Emergency Medicine; PCP Internal Medicine
DX: M25.561 Pain in right knee (principal); Z91.040 Latex allergy status; F17.210 Nicotine dependence, cigarettes, uncomplicated
CPT/HCPCS: 73562; 99282

== ENCOUNTER 2020-03-11 18:02 | Emergency (ER) | payer OTHER, SELFPAY ==
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
[2020-03-11 18:17] VITALS: BP 121/77; PULSE 87; RESP 18; O2SAT 98; BMI 22.6
[2020-03-11 18:20] VITALS: BP 121/77; PULSE 87; RESP 18; TEMP 36.6; O2SAT 98; BMI 22.6
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
[2020-03-11 19:43] VITALS: BP 121/77; PULSE 87; RESP 18; TEMP 36.6; O2SAT 98
== END 2020-03-11 19:44 | disposition home or self-care (01) ==
PROVIDERS: Emergency Provider Nurse Practitioner
DX: S00.83XA Contusion of other part of head, initial encounter (principal); Y04.0XXA Assault by unarmed brawl or fight, initial encounter; Y92.9 Unspecified place or not applicable; F17.210 Nicotine dependence, cigarettes, uncomplicated
CPT/HCPCS: 70110; 99201

== ENCOUNTER 2020-05-25 19:56 | Emergency (ER) | payer OTHER, SELFPAY ==
[2020-05-25 20:18] VITALS: BP 130/64; PULSE 127; RESP 16; TEMP 38.4; O2SAT 97; BMI 17.8
--- NOTE | 2020-05-25 20:26 | HMH.EDUTC ---
[facility] [place] Disposition Clinical Impression: Otitis media Qualifiers: Otitis media type: unspecified Laterality: bilateral Qualified Code(s): H66.93 - Otitis media, unspecified, bilateral Disposition: Home, Self-Care Condition on Discharge: Good Instructions: Middle Ear Infections (Alternative Therapy), Middle Ear Infection, Amoxicillin, DI for Fever (Symptom) -- Adult Additional Instructions: *Monitor Temp, Over the counter Motrin or Tylenol as directed/as needed Tylenol every 4 hours and Motrin every 6 hours (as long as your family doctor has told you that you can take it) for fever or pain. and straight to ER if unable to lower temp less than 101.0 after medication given *Warm salt water gargles may help to soothe the throat *Throat Lozenges *Warm fluids like tea with honey may help to soothe the throat *Sleep elevated *Humidifier/Vaporizer Take antibiotic as prescribed Follow up with Family Doctor if no improvement or any worsening of symptoms Follow up IMMEDIATELY for new or worsening symptoms or no Noticeable improvement over the next 48-72 hours. 911 for difficulty breathing or swallowing Prescriptions: Amoxicillin [Amoxicillin 875MG Tab] 875 mg PO Q12H #20 tab Transmission Status: Received by [id number] Referrals: PCP,No [Primary Care Provider] - As needed Time of Disposition: 20:38 Medical Decision Making - Yon Inquiry Pt receiving controlled substance: No Yon was queried for this patient: No Vital Signs: 05/25/20 20:18 Temperature 101.1 F H Temperature Source Oral Pulse Rate [Right] 127 H Respiratory Rate 16 Blood Pressure [Right Arm] 130/64 Blood Pressure Mean [Right Arm] 86 Blood Pressure Source [Right Arm] Automatic Cuff Blood Pressure Position [Right Arm] Sitting 02 Sat by Pulse Oximetry 97 Oxygen Delivery Method Room Air Orders (Tests/Meds): ED MEDICATIONS Discontinued Medications Generic Name Dose Route Start Last Admin Trade Name Freq PRN Reason Stop Dose Admin Amoxicillin 500 mg 05/25/20 20:29 05/25/20 20:34 Amoxicillin 500mg Capsule PO 05/25/20 20:30 500 mg ONCE ONE Administration Protocol Ibuprofen 600 mg 05/25/20 20:28 05/25/20 20:34 Ibuprofen 600 Mg Tablet PO 05/25/20 20:29 600 mg ONCE ONE Administration [facility] UTC HPI - General Stated complaint: ear pain Time Seen by Provider: 05/25/20 20:27 Mode of Arrival: Ambulatory Source of Information: Patient Limitations: No Limitations Description of Symptoms (Recalled from Triage Doc. by RN): pt is having bilateral ear pain and is febrile. HEENT Symptoms (Recalled from RN notes): Yes (bilateral ear aches) Resp Symptoms (Recalled from RN notes): No Skin Symptoms (Recalled from RN notes): No MS Symptoms (Recalled from RN notes): No Functional Status (Recalled from RN notes): na - History of Present Illness Provider Complaint: Patient states that she feels like she has ear infections States that she has been having pain in both ears for several days and having a fever State that left ear hurts worse and right just started about 3 days ago State that today she was still having ear pain and fever so she came in - Related Data Previous Rx's Medication Instructions Recorded cephALEXin [Keflex 500mg Cap] 500 mg PO TID #30 cap 05/11/19 Amoxicillin [Amoxicillin 875MG 875 mg PO Q12H #20 tab 05/25/20 Tab] Allergies Allergy/AdvReac Type Severity Reaction Status Date / Time kiwi Allergy Mild Verified 05/25/20 19:56 latex Allergy Mild Verified 05/25/20 19:56 - Worker's Comp Is this a Worker's Comp case?: No [facility] History - Hepatitis A Screen Drug use history?: No High risk sexual behaviors?: No History of sexually transmitted infection?: No Currently employed?: No Childcare worker?: No Do you have indoor plumbing?: Yes Do you have electricity?: Yes Attestation statement:: This patient has been screened for Hepatitis A risk factors. I have reviewed the pa
[2020-05-25 20:38] VITALS: BP 000/00; PULSE 69; RESP 14; TEMP 38
== END 2020-05-25 20:48 | disposition home or self-care (01) ==
PROVIDERS: Emergency Provider Nurse Practitioner
DX: H66.93 Otitis media, unspecified, bilateral (principal); F17.210 Nicotine dependence, cigarettes, uncomplicated
CPT/HCPCS: 99202; G0463

== ENCOUNTER 2020-11-03 13:25 | Emergency (ER) | payer SELFPAY ==
[2020-11-03 13:30] VITALS: BP 116/72; PULSE 85; RESP 18; TEMP 36.6; O2SAT 98; BMI 21.9
--- NOTE | 2020-11-03 13:35 | XR_ITS ---
PROCEDURE: XR KNEE LT 3V CLINICAL INDICATION: PAIN COMPARISON: CR XR KNEE RT 3V from 01/12/2020 FINDINGS: No fracture or dislocation. No lytic or blastic change. There is normal mineralization. The joint spaces are well-preserved. No significant degenerative/arthritic changes. No erosive changes evident. Other findings:May be a small suprapatellar effusion. IMPRESSION: Possible small knee joint effusion otherwise negative Dictated by: Raymundo Hensley MD 11/03/2020 14:31 Raymundo Hensley MD in [place] 11/03/2020 14:31
--- NOTE | 2020-11-03 14:00 | HMH.EDUTC ---
[facility] [place] Clinical Impression: Knee sprain Qualifiers: Encounter type: initial encounter Involved ligament of knee: unspecified ligament Laterality: left Qualified Code(s): S83.92XA - Sprain of unspecified site of left knee, initial encounter Disposition: Home, Self-Care Condition on Discharge: Good Instructions: How To Perform RICE (Rest, Ice, Compress, Elevate), How to Use a Knee Immobilizer Additional Instructions: *weight bearing as tolerated use crutches to get around *RICE, Rest the extremity, Ice 15-20 minutes 3-4 times daily, Compress- wear the gerald wrap as discussed as much as possible to help reduce swelling and pain, Elevate the extremity when at rest *Gerald wrap is for support and help control swelling, use it except in the shower. Be sure that is not to tight but not to loose either *Elevate when resting *Ibuprofen as directed on package every 6-8 hours as needed for pain an inflammation. If need something more can take Tylenol in between doses of Ibuprofen to help Immediately follow up with your family doctor for new or worsening of symptoms, or no noticeable improvement over the next 3-5 days Return if needed Call back to the [facility] later today for the official reading of your xray Referrals: Provider,Nayeli, [Primary Care Provider] - As needed Zenon Amaya MD [Staff Physician] - Time of Disposition: 14:19 Medical Decision Making - Yon Inquiry Pt receiving controlled substance: No Yon was queried for this patient: No Vital Signs: 11/03/20 13:30 11/03/20 14:26 Temperature 97.9 F 97.9 F Temperature Source Oral Pulse Rate 85 Pulse Rate [Right Brachial] 85 Respiratory Rate 18 18 Blood Pressure 116/72 Blood Pressure [Right Arm] 116/72 Blood Pressure Mean [Right Arm] 86 Blood Pressure Source [Right Arm] Automatic Cuff Blood Pressure Position [Right Arm] Sitting 02 Sat by Pulse Oximetry 98 Oxygen Delivery Method Room Air - Radiology Data #1 Image(s): Knee Image Reviewed: Yes I reviewed the patient's radiology image Preliminary Findings: No Fracture Seen [facility] [place] HPI - General Stated complaint: AO [id number] , left leg injury Time Seen by Provider: 11/03/20 14:00 Mode of Arrival: Ambulatory Source of Information: Patient Limitations: No Limitations Description of Symptoms (Recalled from Triage Doc. by RN): PATIENT STATES SHE WAS PLAYING WITH HER DAUGHTER TODAY WHEN SHE SLIPPED AND INJURED LEFT KNEE HEENT Symptoms (Recalled from RN notes): No Resp Symptoms (Recalled from RN notes): No Skin Symptoms (Recalled from RN notes): No MS Symptoms (Recalled from RN notes): Yes Functional Status (Recalled from RN notes): WNL - History of Present Illness Provider Complaint: Patient states that she was playing with her daughter this morning and the child stepped on her left knee and she felt a pop States that ever since she has been having some pain and swelling in her left knee so she came in to get checked - Related Data Previous Rx's Medication Instructions Recorded cephALEXin [Keflex 500mg Cap] 500 mg PO TID #30 cap 05/11/19 Amoxicillin [Amoxicillin 875MG 875 mg PO Q12H #20 tab 05/25/20 Tab] Allergies Allergy/AdvReac Type Severity Reaction Status Date / Time kiwi Allergy Mild Verified 05/25/20 19:56 latex Allergy Mild Verified 05/25/20 19:56 - Worker's Comp Is this a Worker's Comp case?: No [facility] History - Hepatitis A Screen Drug use history?: No High risk sexual behaviors?: No History of sexually transmitted infection?: No Currently employed?: No Childcare worker?: No Do you have indoor plumbing?: Yes Do you have electricity?: Yes Attestation statement:: This patient has been screened for Hepatitis A risk factors. I have reviewed the patient's past medical history: Yes Medical History: Denies:: Cancer, Diabetes Mellitus Type 1, Diabetes Mellitus Type 2, MRSA Other Surgeries: Yes: No Previous Surgery, Tubal Ligation, Other. No: C-se
[2020-11-03 14:26] VITALS: BP 116/72; PULSE 85; RESP 18; TEMP 36.6; O2SAT 98
== END 2020-11-03 14:38 | disposition home or self-care (01) ==
PROVIDERS: Emergency Provider Nurse Practitioner
DX: S83.92XA Sprain of unspecified site of left knee, initial encounter (principal); W50.0XXA Accidental hit or strike by another person, initial encounter; Y92.019 Unspecified place in single-family (private) house as the place of occurrence of the external cause; F17.210 Nicotine dependence, cigarettes, uncomplicated
CPT/HCPCS: 29505; 73562; 99202; G0463

== ENCOUNTER 2020-11-27 19:55 | Emergency (ER) | payer SELFPAY ==
[2020-11-27 21:00] VITALS: BP 132/66; PULSE 105; RESP 21; TEMP 36.7; O2SAT 100; BMI 17.6
--- NOTE | 2020-11-27 21:33 | HMH.EDUTC ---
[facility] – [place] Disposition Clinical Impression: Viral upper respiratory illness Disposition: Home, Self-Care Condition on Discharge: Good Instructions: DI for COVID-19 (Suspected or Confirmed ), Preventing the Spread of Coronavirus Discharge Instructions Additional Instructions: *Monitor Temp, Over the counter Motrin or Tylenol as directed/as needed Tylenol every 4 hours and Motrin every 6 hours (as long as your family doctor has told you that you can take it) for fever or pain. and straight to ER if unable to lower temp less than 101.0 after medication given *Warm salt water gargles may help to soothe the throat *Throat Lozenges *Warm fluids like tea with honey may help to soothe the throat *Sleep elevated *Humidifier/Vaporizer Follow up IMMEDIATELY for new or worsening symptoms or no Noticeable improvement over the next 48-72 hours. 911 for difficulty breathing or swallowing You were tested for today for COVID19 your test result should be back in the next 24-48 hours, you was given handout on how to check for your results on [facility] if you have issues or no internet access you may call the [facility] You was given a handout with instructions for Self Quarantine and Self isolation for while you wait on test results and what to do if they are positive If you are positive the Health Dept will be contacting you also Make sure to take your Vitamins Vit. C Vit D and Zinc if you can take them Referrals: Provider,Referral, [Primary Care Provider] - As needed Time of Disposition: 21:35 Medical Decision Making - Yon Inquiry Pt receiving controlled substance: No Yon was queried for this patient: No Vital Signs: 11/27/20 21:00 Temperature 98.1 F Temperature Source Oral Pulse Rate [Right Brachial] 105 H Respiratory Rate 21 Blood Pressure [Right Arm] 132/66 Blood Pressure Mean [Right Arm] 88 Blood Pressure Source [Right Arm] Automatic Cuff Blood Pressure Position [Right Arm] Sitting 02 Sat by Pulse Oximetry 100 Oxygen Delivery Method Room Air Orders (Tests/Meds): ORDERS Category Date Time Status Covid-19 Nasal PCR ([facility]) Routine Lab 11/27/20 21:31 Ordered [facility] – [place] HPI - General Stated complaint: cough,runny nose Time Seen by Provider: 11/27/20 21:33 Mode of Arrival: Ambulatory Source of Information: Patient Limitations: No Limitations Description of Symptoms (Recalled from Triage Doc. by RN): PATIENT C/O RUNNY NOSE AND COUGH HEENT Symptoms (Recalled from RN notes): Yes Resp Symptoms (Recalled from RN notes): Yes Skin Symptoms (Recalled from RN notes): No MS Symptoms (Recalled from RN notes): No Functional Status (Recalled from RN notes): WNL - History of Present Illness Provider Complaint: Mother states that she has been having runny nose and cough state that she thinks it is just allergies but her son is having similar symptoms and she wanted to have them tested for COVID to make sure she didnt take it home to her other kids - Related Data Previous Rx's Medication Instructions Recorded cephALEXin [Keflex 500mg Cap] 500 mg PO TID #30 cap 05/11/19 Amoxicillin [Amoxicillin 875MG 875 mg PO Q12H #20 tab 05/25/20 Tab] Allergies Allergy/AdvReac Type Severity Reaction Status Date / Time kiwi Allergy Mild Verified 05/25/20 19:56 latex Allergy Mild Verified 05/25/20 19:56 - Worker's Comp Is this a Worker's Comp case?: No [facility] History - Hepatitis A Screen Drug use history?: No High risk sexual behaviors?: No History of sexually transmitted infection?: No Currently employed?: No Childcare worker?: No Do you have indoor plumbing?: Yes Do you have electricity?: Yes Attestation statement:: This patient has been screened for Hepatitis A risk factors. I have reviewed the patient's past medical history: Yes Medical History: Denies:: Cancer, Diabetes Mellitus Type 1, Diabetes Mellitus Type 2, MRSA Other Surgeries: Yes: No Previous Surgery, Tubal Ligation, Other. No:
[2020-11-27 21:45] VITALS: BP 132/66; PULSE 105; RESP 21; TEMP 36.7; O2SAT 100
== END 2020-11-27 21:49 | disposition home or self-care (01) ==
LOC: ER 20:08 → UTC 20:09
PROVIDERS: Emergency Provider Nurse Practitioner
DX: J06.9 Acute upper respiratory infection, unspecified (principal); Z20.822 Contact with and (suspected) exposure to COVID-19; F17.210 Nicotine dependence, cigarettes, uncomplicated
CPT/HCPCS: 99202; C9803; G0463; U0003; U0005

== ENCOUNTER 2021-05-18 22:21 | Emergency (ER) | payer SELFPAY ==
[2021-05-18 22:22] VITALS: PULSE 88; RESP 18; TEMP 36.9; O2SAT 100; BMI 22.1
[2021-05-18 22:32] VITALS: BMI 21.7
--- NOTE | 2021-05-18 22:33 | XR_ITS ---
PROCEDURE INFORMATION: Exam: XR Right Knee Exam date and time: 05/18/2021 10:33 PM Age: 25 years old Clinical indication: Injury or trauma; Other: Twisting injury to knee; Sprain or strain; Patella or knee; Right; Additional info: Accident TECHNIQUE: Imaging protocol: XR Right knee. Views: 3 views. COMPARISON: CR XR KNEE RT 3V 01/12/2020 4:12 PM FINDINGS: Bones/joints: No acute fracture. No dislocation. Joint spaces preserved. No erosion. No joint effusion. Soft tissues: Normal. IMPRESSION: No acute findings.
[2021-05-18 22:41] VITALS: BP 110/81; PULSE 84; RESP 18; TEMP 36.9; O2SAT 100; BMI 48.0
--- NOTE | 2021-05-18 22:47 | HMH.EDLOEX ---
ED Disposition Clinical Impression: Strain of knee Qualifiers: Encounter type: initial encounter Laterality: right Qualified Code(s): S86.911A - Strain of unspecified muscle(s) and tendon(s) at lower leg level, right leg, initial encounter Disposition: Home, Self-Care Condition on Discharge: Good Instructions: DI for Knee Sprain Additional Instructions: wt bearing as priscilla and see pcp for follow up Prescriptions: Meloxicam [Mobic 7.5mg Tab] 7.5 mg PO DAILY #10 tab Transmission Status: Pending to [facility] Referrals: Provider,Referral, [Primary Care Provider] - - Critical Care Critical Care Time: No Attestation: On 05/18/21, the high probability of a clinically significant, sudden or life threatening deterioration of the following system(s) required my full and direct attention, intervention and personal management. The time I documented below is in addition to time spent performing reported procedures but includes the following listed in this critical care notation. Medical Decision Making - Medical Records Medical records reviewed: Yes: I reviewed the patient's medical records. - Yon Inquiry Pt receiving controlled substance: No Vital Signs: 05/18/21 22:22 05/18/21 22:41 05/18/21 23:10 Temperature 98.4 F 98.4 F 98.4 F Temperature Source Oral Oral Pulse Rate 82 Pulse Rate [Left Radial] 88 84 Respiratory Rate 18 18 18 Blood Pressure 115/74 Blood Pressure [Right Arm] 110/81 Blood Pressure Mean [Right Arm] 90 02 Sat by Pulse Oximetry 100 100 Oxygen Delivery Method Room Air Room Air Orders (Tests/Meds): ED MEDICATIONS Discontinued Medications Generic Name Dose Route Start Last Admin Trade Name Freq PRN Reason Stop Dose Admin Ketorolac Tromethamine 30 mg 05/18/21 22:48 05/18/21 22:51 Ketorolac 30mg/Ml Vial IM 05/18/21 22:49 30 mg ONCE ONE Administration - Radiology Data #1 Image(s): Knee Image Reviewed: Yes I have reviewed radiologist's interpretation Preliminary Findings: No Fracture Seen Medical Decision Narrative: pt has neg xray and stable exam and use nsaif Lower Extremity Injury HPI - General Chief Complaint: Extremity Problem,Nontraumatic Stated Complaint: AO 05/18@1200 pain in r KNEE Time Seen by Provider: 05/18/21 22:47 Mode of Arrival: Ambulatory Source of Information: Patient, Medical Record Limitations: No Limitations Description of Symptoms (Recalled from ER Triage Doc. by RN): PT REPORTS PAIN IN RIGHT KNEE AFTER DOG LEASH TWISTED AROUND KNEE PT DENIES FALL. - History of Present Illness HPI Narrative: rt knee pain as dog caused rotation injury complaint: knee injury Onset (ago): hour(s) Injury: Right: knee Type of Injury: other (rotation) Place: street/outdoors Severity: moderate Context: walking Associated symptoms: able to partially bear weight Other symptoms: none - Related Data Previous Rx's Medication Instructions Recorded Meloxicam [Mobic 7.5mg Tab] 7.5 mg PO DAILY #10 tab 05/18/21 Allergies Allergy/AdvReac Type Severity Reaction Status Date / Time kiwi Allergy Mild Verified 05/25/20 19:56 latex Allergy Mild Verified 05/25/20 19:56 [facility] History - Hepatitis A Screen Drug use history?: No High risk sexual behaviors?: No History of sexually transmitted infection?: No Currently employed?: No Childcare worker?: No Do you have indoor plumbing?: Yes Do you have electricity?: Yes Attestation statement:: This patient has been screened for Hepatitis A risk factors. I have reviewed the patient's past medical history: Yes Medical History: Denies:: Cancer, Diabetes Mellitus Type 1, Diabetes Mellitus Type 2, MRSA Other Surgeries: Yes: No Previous Surgery, Tubal Ligation, Other. No: Amputation: No Fractures: No Comment: Primary --12/26/2015 - Social History Smoking Status: Current every day smoker Tobacco Type: cigarettes, smokeless tobacco # Packs/Day
[2021-05-18 23:10] VITALS: BP 115/74; PULSE 82; RESP 18; TEMP 36.9; O2SAT 98
[2021-05-18 23:23] VITALS: BP 111/73; PULSE 88; RESP 18; TEMP 36.7; O2SAT 100
== END 2021-05-18 23:26 | disposition home or self-care (01) ==
PROVIDERS: Emergency Provider Emergency Medicine
DX: S83.91XA Sprain of unspecified site of right knee, initial encounter (principal); F17.290 Nicotine dependence, other tobacco product, uncomplicated; W01.0XXA Fall on same level from slipping, tripping and stumbling without subsequent striking against object, initial encounter
CPT/HCPCS: 73562; 96372; 99284

== ENCOUNTER → 2021-07-06 13:12 | Outpatient (CLI) | payer OTHER, SELFPAY ==
--- NOTE | 2021-07-06 13:12 | US_ITS ---
FINAL REPORT CLINICAL HISTORY: irregular periods and abdominal bloating FINDINGS: Transvaginal sonographic images of the pelvis were obtained. The uterus measures 9.4 x 3.7 x 4.8 cm. The endometrium measures 5 mm, which is within normal limits. No uterine mass is identified. A scar is noted. The right ovary measures 3.2 cm in length and left ovary measures 3.2 cm in length. Normal blood flow seen to the ovaries. There are multiple small follicles seen bilaterally predominantly in the periphery. There is a 1.8 cm left ovarian cyst. There is no evidence of free fluid. IMPRESSION: Multiple small follicles seen bilaterally, predominantly in the periphery, PCOS is not excluded. Reviewed, Interpreted and Dictated by Justen Alvarado III, MD Transcribed by Ángela Norman Authenticated by Justen Alvarado III, MD on 07/06/2021 02:34:44 PM [facility]
== END ==
PROVIDERS: PCP Obstetrics & Gynecology; Visit Provider Obstetrics & Gynecology
DX: N92.6 Irregular menstruation, unspecified (principal); R14.0 Abdominal distension (gaseous)
CPT/HCPCS: 76830

== ENCOUNTER → 2021-08-09 14:45 | Outpatient (CLI) | payer OTHER, SELFPAY ==
[2021-08-09 16:56] LABS: Alanine Aminotransferase 27 U/L (12-78); Albumin Level 4.1 g/dl (3.5-5.0); Albumin/Globulin Ratio 1.6 (1.1-1.8); Alkaline Phosphatase 61 U/L (38-126); Anion Gap 14.4 mEq/L (5-15); Aspartate Amino Transferase 33 U/L (14-36); Bilirubin,Total 0.2 mg/dl (0.2-1.3); Blood Urea Nitrogen 10 mg/dl (7-17); Calcium 9.5 mg/dl (8.4-10.2); Carbon Dioxide 24 mmol/L (22.0-30.0); Chloride 106 mmol/L (98-107); Estimated Glomerular Filt Rate 122 ml/min (>60); GFR (African American) 147 ML/MIN (>60); Globulin 2.5 g/dL (1.3-3.2); Glucose 80 mg/dl (74-100); Potassium 4.4 mmoL/L (3.5-5.1); Sodium 140 mmol/L (136-145); Total Protein,Serum 6.6 g/dl (6.3-8.2)
[2021-08-09 16:58] LABS: Basophils # 0.2 K/mm3 (0-0.2); Eosinophils # 0.1 K/mm3 (0.0-0.4); Eosinophils % 1.4 % (0.1-12.0); Hematocrit 43.7 % (37.0-47.0); Hemoglobin 14.9 g/dL (12.2-16.2); Lymphocytes % 31.2 % (10-50); Mean Corpuscular Hemoglobin 30.8 pg (27.0-31.2); Mean Corpuscular Volume 90.5 fl (81-99); Mean Platelet Volume 10.1 fl (7.4-10.4); Monocytes # 0.5 K/mm3 (0.1-1.0); Monocytes % 4.7 % (1.7-9.3); Neutrophils # 5.8 K/mm3 (1.8-7.8); Neutrophils % 60.7 % (37.0-80.0); Platelet Count 340 K/mm3 (142-424); Red Blood Count 4.82 M/mm3 (4.20-5.40); Red Cell Distribution Width 13.3 % (11.5-17.5); White Blood Count 9.6 K/mm3 (4.8-10.8)
[2021-08-09 17:26] LABS: Thyroid Stimulating Hormone 2.16 uIU/mL (0.465-4.68)
== END ==
PROVIDERS: Visit Provider Obstetrics & Gynecology
DX: R10.9 Unspecified abdominal pain (principal); N92.6 Irregular menstruation, unspecified
CPT/HCPCS: 36415; 80053; 84443; 85025

== ENCOUNTER 2021-08-19 22:56 | Emergency (ER) | payer OTHER, SELFPAY ==
[2021-08-19 22:57] VITALS: BP 123/56; PULSE 81; RESP 18; TEMP 36.8; O2SAT 100; BMI 28.1
--- NOTE | 2021-08-20 02:16 | HMH.EDSKAF ---
ED Disposition Clinical Impression: Dermatitis Disposition: Home, Self-Care Condition on Discharge: Good Instructions: DI for Itching Additional Instructions: use meds and see pcp for follow up Prescriptions: Loratadine [Claritin 10mg Tablet] 10 mg PO DAILY #10 tab Transmission Status: Pending to [facility] Minocycline HCl [Minocycline HCl 100mg Tab*] 100 mg PO BID #20 tab Transmission Status: Pending to [facility] predniSONE [Prednisone 20mg Tab] 20 mg PO BID #10 tab Transmission Status: Pending to [facility] Referrals: Provider,Referral, [Primary Care Provider] - - Critical Care Critical Care Time: No Attestation: On 08/19/21, the high probability of a clinically significant, sudden or life threatening deterioration of the following system(s) required my full and direct attention, intervention and personal management. The time I documented below is in addition to time spent performing reported procedures but includes the following listed in this critical care notation. Medical Decision Making - Medical Records Medical records reviewed: Yes: I reviewed the patient's medical records. - Yon Inquiry Pt receiving controlled substance: No Vital Signs: 08/19/21 22:57 Temperature 98.3 F Temperature Source Oral Pulse Rate [Left] 81 Respiratory Rate 18 Blood Pressure [Right Arm] 123/56 L Blood Pressure Mean [Right Arm] 78 02 Sat by Pulse Oximetry 100 Oxygen Delivery Method Room Air Medical Decision Narrative: has photosensitve rash with no hot tub exposure and no mm lesions - Skin/Abscess/FB HPI - General Chief complaint: Skin/Abscess/Foreign Body Stated complaint: rash all over body Time Seen by Provider: 08/20/21 02:16 Mode of Arrival: Ambulatory Source of Information: Patient, Medical Record Limitations: No Limitations Description of Symptoms (Recalled from ER Triage Doc. by RN): pt states she was in the sunlight fishing today and started getting itchy where the sun was hittin her skin now she has a raised rash in all the areas the sun was in contact with the skin. pt reports no use of anything new on the skin and states that she did not use sunblock or bug spray today. pt also reports right foot pain from a previous injury - History of Present Illness HPI narrative: rash to sun exposed area today with itchy - no fever or known illness and no meds or MD complaint: rash Onset (ago): day(s) Tetanus up to date: unsure Location: generalized Severity: moderate Associated symptoms: itching - Related Data Previous Rx's Medication Instructions Recorded Loratadine [Claritin 10mg 10 mg PO DAILY #10 tab 08/20/21 Tablet] Minocycline HCl [Minocycline HCl 100 mg PO BID #20 tab 08/20/21 100mg Tab*] predniSONE [Prednisone 20mg 20 mg PO BID #10 tab 08/20/21 Tab] Allergies Allergy/AdvReac Type Severity Reaction Status Date / Time kiwi Allergy Mild Verified 07/02/21 15:38 latex Allergy Mild Verified 07/02/21 15:38 [facility] History - Hepatitis A Screen Attestation statement:: This patient has been screened for Hepatitis A risk factors. I have reviewed the patient's past medical history: Yes Medical History: Denies:: Cancer, Diabetes Mellitus Type 1, Diabetes Mellitus Type 2, MRSA Other Medical History: Reports: Other (murmur, anxiety) Other Surgeries: Yes: No Previous Surgery, , Tubal Ligation, Other Amputation: No Fractures: No Comment: PLTCS x 3, tubal ligation in 2019 - Social History Smoking Status: Current every day smoker Tobacco Type: cigarettes, smokeless tobacco # Packs/Day (cigarettes): 1 #Yrs smoked (if former smoker): 0 Alcohol Intake: never Alcohol Intake Frequency:: other Substance Use Type: denies use Occupational Status: other Housing: house Household Members: significant other Family Hx:: No significant family history, Hypertension [employer] history: No [employer] history TREY Rabago
[2021-08-20 02:29] VITALS: BP 142/70; PULSE 78; RESP 18; TEMP 36.7; O2SAT 98
== END 2021-08-20 02:30 | disposition home or self-care (01) ==
PROVIDERS: Emergency Provider Emergency Medicine
DX: L30.9 Dermatitis, unspecified (principal); Z91.040 Latex allergy status; Z91.018 Allergy to other foods
CPT/HCPCS: 99282

== ENCOUNTER 2021-08-27 23:02 | Emergency (ER) | payer OTHER, SELFPAY ==
[2021-08-27 23:03] VITALS: BP 147/91; PULSE 91; RESP 16; TEMP 36.9; O2SAT 97; BMI 27.6
--- NOTE | 2021-08-27 23:13 | XR_ITS ---
PROCEDURE INFORMATION: Exam: XR Left Knee Exam date and time: 08/27/2021 11:16 PM Age: 25 years old Clinical indication: Left; Patient HX: H/o old injury, reinjurred recently. C/O pain around knee cap TECHNIQUE: Imaging protocol: XR Left knee. Views: 3 views. COMPARISON: CR XR KNEE LT 3V 11/03/2020 1:51 PM FINDINGS: Bones/joints: No evidence of acute displaced cortical disruption or dislocation. Regional bone density and trabecular pattern of the satisfactory appearance. Soft tissues: No radiopaque foreign object or localized soft tissue swelling. IMPRESSION: No acute fracture is identified.
--- NOTE | 2021-08-28 00:41 | HMH.EDLOEX ---
ED Disposition Clinical Impression: Knee sprain Qualifiers: Encounter type: initial encounter Involved ligament of knee: unspecified ligament Laterality: left Qualified Code(s): S83.92XA - Sprain of unspecified site of left knee, initial encounter Disposition: Home, Self-Care Condition on Discharge: Good Instructions: DI for Knee Pain Additional Instructions: ice and see pcp and ortho Referrals: Provider,Referral, [Primary Care Provider] - Zenon Amaya MD [Staff Physician] - - Critical Care Critical Care Time: No Attestation: On 08/27/21, the high probability of a clinically significant, sudden or life threatening deterioration of the following system(s) required my full and direct attention, intervention and personal management. The time I documented below is in addition to time spent performing reported procedures but includes the following listed in this critical care notation. Medical Decision Making - Medical Records Medical records reviewed: Yes: I reviewed the patient's medical records. - Yon Inquiry Pt receiving controlled substance: No Vital Signs: 08/27/21 23:03 08/28/21 01:17 Temperature 98.5 F 98.5 F Temperature Source Oral Oral Pulse Rate 84 Pulse Rate [Right] 91 H Respiratory Rate 16 16 Blood Pressure 124/74 Blood Pressure [Right Arm] 147/91 H Blood Pressure Mean [Right Arm] 109 02 Sat by Pulse Oximetry 97 - Lab Data Lab results reviewed: Yes: I reviewed the patient's lab results. Orders (Tests/Meds): ED MEDICATIONS Discontinued Medications Generic Name Dose Route Start Last Admin Trade Name Manojq PRN Reason Stop Dose Admin Acetaminophen 1,000 mg 08/27/21 23:13 08/27/21 23:45 Acetaminophen 500mg Tab PO 08/27/21 23:14 1,000 mg ONCE ONE Administration Acetaminophen/Codeine Phosphate 1 packet 08/28/21 01:06 08/28/21 01:09 Acetaminophen 300mg W/Codeine 30mg Take Home Pack (6) PO 08/28/21 01:07 1 packet ONCE ONE Administration Ibuprofen 600 mg 08/27/21 23:13 08/27/21 23:45 Ibuprofen 600 Mg Tablet PO 08/27/21 23:14 600 mg ONCE ONE Administration - Radiology Data #1 Image(s): Knee Image Reviewed: Yes I have reviewed radiologist's interpretation Preliminary Findings: No Fracture Seen Medical Decision Narrative: has lt knee with pain and swelling and dec wt bearing possible internal knee injury Lower Extremity Injury HPI - General Chief Complaint: Extremity Injury, Lower Stated Complaint: Left knee pain and swelling Time Seen by Provider: 08/28/21 00:41 Mode of Arrival: Ambulatory Source of Information: Patient, Relative, Medical Record Limitations: No Limitations Description of Symptoms (Recalled from ER Triage Doc. by RN): pt c/o lt knee pain that started to 2 day. pt states she thinks she reinjury from previous injury that was seen in [facility] a month ago and was placed in knee immoblizer but didn't follow up with ortho. - History of Present Illness HPI Narrative: acute injury to lt knee with pain and swelling and dec wt bearing MD complaint: knee injury Onset (ago): day(s) Injury: Left: knee Type of Injury: unknown Place: home Severity: moderate Exacerbating factors: weight bearing Context: walking Associated symptoms: able to partially bear weight Other symptoms: none Treatments prior to arrival: NSAIDS - Related Data Previous Rx's Medication Instructions Recorded Loratadine [Claritin 10mg 10 mg PO DAILY #10 tab 08/20/21 Tablet] Minocycline HCl [Minocycline HCl 100 mg PO BID #20 tab 08/20/21 100mg Tab*] predniSONE [Prednisone 20mg 20 mg PO BID #10 tab 08/20/21 Tab] Allergies Allergy/AdvReac Type Severity Reaction Status Date / Time kiwi Allergy Mild Verified 07/02/21 15:38 latex Allergy Mild Verified 07/02/21 15:38 [facility] History - Hepatitis A Screen Attestation statement:: This patient has been screened for Hepatitis A risk factors. I have reviewed the p
[2021-08-28 01:17] VITALS: BP 124/74; PULSE 84; RESP 16; TEMP 36.9; O2SAT 97
== END 2021-08-28 01:35 | disposition home or self-care (01) ==
PROVIDERS: Emergency Provider Emergency Medicine
DX: S83.92XA Sprain of unspecified site of left knee, initial encounter (principal)
CPT/HCPCS: 73562; 99283

== ENCOUNTER 2021-10-03 14:57 | Emergency (ER) | payer OTHER, SELFPAY ==
--- NOTE | 2021-10-03 15:09 | PC.NURSE ---
This rn triaged and assesed pt. explained to pt she would be called back to the ed once a bed became available. pt moved to the lobby at this time. no needs voiced by pt.
[2021-10-03 15:10] VITALS: BP 112/53; PULSE 94; RESP 18; TEMP 36.7; O2SAT 99; BMI 26.5
[2021-10-03 15:23] LABS: Microscopic, Urine URINE MICROSCOPIC (MICROSCOPIC)
[2021-10-03 15:28] LABS: Appearance,Urine CLEAR (Clear); Blood, Urine 3+ (Negative); Color,Urine YELLOW (Yellow); Glucose,Urine (UA) Negative (Negative); Ketones,Urine Negative (Negative); Leukocyte Esterase,Urine Negative (Negative); Nitrate,Urine Negative (Negative); PH,Urine 5.5 (5.0-8.5); Protein,Urine 1+ (Negative); Specific Gravity, Urine >= 1.030 (1.005-1.030); Urobilinogen,Urine 0.2 EU/dl (0.2)
[2021-10-03 16:03] LABS: Urine Pregnancy, HCG Qual. Negative (Negative)
[2021-10-03 16:08] LABS: Bilirubin,Urine 1+ (Negative)
--- NOTE | 2021-10-03 16:08 | PC.NURSE ---
Called admissions and let them know that this patient could be roomed to ED room 9 from waiting area. pt brought back via wc. family at BS
[2021-10-03 16:09] LABS: Bacteria,Urine 2+ /lpf
[2021-10-03 16:21] VITALS: BP 106/52; PULSE 84; O2SAT 98
[2021-10-03 16:30] VITALS: BP 114/63; PULSE 77; O2SAT 98
[2021-10-03 16:39] LABS: Basophils % 0.3 % (0.1-2.0); Eosinophils # 0.1 K/mm3 (0.0-0.4); Hemoglobin 14.4 g/dL (12.2-16.2); Lymphocytes # 2.6 K/mm3 (0.7-4.5); Lymphocytes % 30.4 % (10-50); Mean Corpuscular HGB Conc 35.1 g/dL (31.8-35.4); Mean Corpuscular Hemoglobin 30.4 pg (27.0-31.2); Mean Corpuscular Volume 86.6 fl (81-99); Monocytes # 0.4 K/mm3 (0.1-1.0); Monocytes % 4.3 % (1.7-9.3); Neutrophils # 5.4 K/mm3 (1.8-7.8); Neutrophils % 63.9 % (37.0-80.0); Platelet Count 363 K/mm3 (142-424); Red Blood Count 4.73 M/mm3 (4.20-5.40); Red Cell Distribution Width 13.1 % (11.5-17.5); White Blood Count 8.4 K/mm3 (4.8-10.8)
[2021-10-03 16:40] LABS: Chloride 111 mmol/L (98-107); Potassium 3.7 mmoL/L (3.5-5.1); Sodium 140 mmol/L (136-145)
[2021-10-03 16:42] LABS: Blood Urea Nitrogen 9 mg/dl (7-17); Creatinine Clearance Estimated 115 mL/min (50-200); Estimated Glomerular Filt Rate 87 ml/min (>60); GFR (African American) 106 ML/MIN (>60)
[2021-10-03 16:43] LABS: Alanine Aminotransferase 22 U/L (12-78); Albumin Level 4.3 g/dl (3.5-5.0); Albumin/Globulin Ratio 1.6 (1.1-1.8); Alkaline Phosphatase 62 U/L (38-126); Anion Gap 8.7 mEq/L (5-15); Aspartate Amino Transferase 28 U/L (14-36); Bilirubin,Total 0.5 mg/dl (0.2-1.3); Calcium 9.4 mg/dl (8.4-10.2); Carbon Dioxide 24 mmol/L (22.0-30.0); Globulin 2.7 g/dL (1.3-3.2); Glucose 107 mg/dl (74-100)
--- NOTE | 2021-10-03 16:48 | PC.NURSE ---
ED MD AT BEDSIDE TO EVALUATE PT
[2021-10-03 17:00] VITALS: BP 112/65; PULSE 81; O2SAT 98
[2021-10-03 17:30] VITALS: BP 107/57; PULSE 77; PULSE 81; RESP 18; TEMP 36.8; O2SAT 97
--- NOTE | 2021-10-03 17:32 | HMH.EDABDPAI ---
ED Disposition Clinical Impression: UTI (urinary tract infection) Qualifiers: Urinary tract infection type: acute cystitis Hematuria presence: with hematuria Qualified Code(s): N30.01 - Acute cystitis with hematuria Disposition: Home, Self-Care Condition on Discharge: Good Instructions: DI for Urinary Tract Infection (UTI) Prescriptions: Nitrofurantoin Monohyd/M-Cryst [Macrobid 100 mg Capsule] 100 mg PO BID #14 cap Transmission Status: Pending to [facility] Referrals: Provider,Referral, [Primary Care Provider] - - Critical Care Critical Care Time: No Attestation: On 10/03/21, the high probability of a clinically significant, sudden or life threatening deterioration of the following system(s) required my full and direct attention, intervention and personal management. The time I documented below is in addition to time spent performing reported procedures but includes the following listed in this critical care notation. Medical Decision Making - Medical Records Medical records reviewed: Yes: I reviewed the patient's medical records. - Yon Inquiry Pt receiving controlled substance: No Vital Signs: 10/03/21 15:10 10/03/21 16:21 Temperature 98.1 F Temperature Source Oral Pulse Rate 84 Pulse Rate [Left Radial] 94 H Respiratory Rate 18 Blood Pressure 106/52 L Blood Pressure [Right Arm] 112/53 L Blood Pressure Mean 70 Blood Pressure Mean [Right Arm] 72 02 Sat by Pulse Oximetry 99 98 Oxygen Delivery Method Room Air - Lab Data Lab Results 10/03/21 15:06: Urine Color Yellow, Urine Appearance Clear, Urine pH 5.5, Ur Specific Daphne >= 1.030, Urine Protein 1+, Urine Glucose (UA) Negative, Urine Ketones Negative, Urine Blood 3+, Urine Nitrate Negative, Urine Bilirubin 1+ A, Urine Urobilinogen 0.2, Ur Leukocyte Esterase Negative, Urine RBC 5-10, Urine WBC 3-5, Ur Squamous Epith Cells 5-10, Urine Bacteria 2+ 10/03/21 15:06: Urine HCG, Qual Negative 10/03/21 16:15: WBC 8.4, RBC 4.73, Hgb 14.4, Hct 41.0, MCV 86.6, MCH 30.4, MCHC 35.1, RDW 13.1, Plt Count 363, MPV 8.0, Neut % (Auto) 63.9, Lymph % (Auto) 30.4, Tyler % (Auto) 4.3, Eos % (Auto) 1.0, Baso % (Auto) 0.3, Neut # (Auto) 5.4, Lymph # (Auto) 2.6, Tyler # (Auto) 0.4, Eos # (Auto) 0.1, Baso # (Auto) 0.0 10/03/21 16:15: Sodium 140, Potassium 3.7, Chloride 111 H, Carbon Dioxide 24, Anion Gap 8.7, BUN 9, Creatinine 0.80, Estimated Creat Clear 115, Estimated GFR 87, Est GFR ( Amer) 106, Glucose 107 H, Calcium 9.4, Total Bilirubin 0.5, AST 28, ALT 22, Alkaline Phosphatase 62, Total Protein 7.0, Albumin 4.3, Globulin 2.7, Albumin/Globulin Ratio 1.6 Result diagrams: 10/03/21 16:15 10/03/21 16:15 Orders (Tests/Meds): ED MEDICATIONS Generic Name Dose Route Start Last Admin Trade Name Freq PRN Reason Stop Dose Admin Sodium Chloride 1,000 mls @ 999 mls/hr 10/03/21 17:00 Sod Chlor 0.9% 1000ml Bag IV 10/03/21 18:00 .Q1H1M PRE[facility]ON Discontinued Medications Generic Name Dose Route Start Last Admin Trade Name Freq PRN Reason Stop Dose Admin Ketorolac Tromethamine 30 mg 10/03/21 16:49 Ketorolac 30mg/Ml Vial IV 10/03/21 16:50 ONCE ONE Ondansetron HCl 4 mg 10/03/21 16:49 Ondansetron 4mg/2ml Vial IV 10/03/21 16:50 ONCE ONE ORDERS Category Date Time Status Urine Culture Stat Micro 10/03/21 15:06 Received - Reevaluation(s) Time: 17:35 Reevaluation #1: On reevaluation, the patient is feeling better. She does have some bacteria in the urine could be contributing to her symptoms. Repeat abdominal examination is benign. No evidence of acute abdomen. Patient is tolerating oral intake. patient needs repeat abdominal examination within 24 hours by PCP or return to the emergency department. Strict return precautions. Verbalized understanding. Medical Decision Narrative: 25-year-old female presented to the emergency department with right lower abdominal pain. She does have a reprod
== END 2021-10-03 17:30 | disposition home or self-care (01) ==
PROVIDERS: Emergency Provider Emergency Medicine
DX: N30.01 Acute cystitis with hematuria (principal); Z91.040 Latex allergy status; Z91.018 Allergy to other foods; Z82.49 Family history of ischemic heart disease and other diseases of the circulatory system; Z72.0 Tobacco use
CPT/HCPCS: 80053; 81001; 81025; 85025; 87086; 96365; 96375; 99284; J2405

== ENCOUNTER 2021-11-11 14:26 | Emergency (ER) | payer OTHER, SELFPAY ==
[2021-11-11 14:44] VITALS: BP 109/68; PULSE 85; RESP 16; TEMP 36.9; O2SAT 99; BMI 28.3
--- NOTE | 2021-11-11 15:01 | EXP.UTC ---
Discharge Plan Disposition Patient Disposition: Still a Patient Condition: Fair Prescriptions Prescriptions: No Action prednisone 20 MG tablet 20 mg PO BID Qty: 10 0RF minocycline 100 MG tablet 100 mg PO BID Qty: 20 0RF loratadine 10 MG tablet 10 mg PO DAILY Qty: 10 0RF nitrofurantoin monohyd/m-cryst 100 MG capsule 100 mg PO BID Qty: 14 0RF Referrals Follow up/Referrals: Marla Glover MD [Primary Care Provider] - See instructions Clinical Impressions Clinical Impression: Abdominal pain Discharge ED Provider: Alex Mohamud [facility] [place] [facility] [place] General Stated complaint: knot near belly button Mode of Arrival: Ambulatory Source of Information: Patient Limitations: No Limitations Time Seen by Provider: 11/11/21 15:00 Description of Symptoms (Recalled from Triage Doc. by RN): pt comes in with c/o knot in stomach by belly button. the knot comes and goes. pt states she was jumping on trampoline earlier, fell on stomach and now it is hurting. HEENT Symptoms (Recalled from RN notes): No Resp Symptoms (Recalled from RN notes): No Skin Symptoms (Recalled from RN notes): No MS Symptoms (Recalled from RN notes): No Functional Status (Recalled from RN notes): n/a History of Present Illness Provider Complaint: She states that earlier today she was jumping on a trampoline when she accidentally came down on her belly. She started having periumbilical abdominal pain then. She has a history of having a knot on her belly around her belly button for the past several months . She states that she believes she has an abdominal hernia and the trauma of coming down on it made her start having this pain. She denies any n/v. Related Data Previous Rx's Medication Instructions Recorded loratadine 10 mg tablet 10 mg PO DAILY #10 tabs 08/20/21 minocycline 100 mg tablet 100 mg PO BID #20 tabs 08/20/21 prednisone 20 mg tablet 20 mg PO BID #10 tabs 08/20/21 nitrofurantoin 100 mg PO BID #14 caps 10/03/21 monohydrate/macrocrystals 100 mg capsule Allergies Allergy/AdvReac Type Severity Reaction Status Date / Time kiwi Allergy Mild Verified 11/11/21 14:47 latex Allergy Mild Verified 11/11/21 14:47 Worker's Comp Is this a Worker's Comp case?: No [facility] Social History Smoking Status: Current every day smoker tobacco type: cigarettes packs per day: 1 and smokeless tobacco second hand exposure: Yes alcohol intake: never counseling provided: none substance use type: denies use current occupational status: other household members: significant other housing: house ROS Obtained: Yes All systems reviewed & no additional complaints except as documented Constitutional Constitutional: Denies chills and Denies fever(s) Eyes Eyes: Denies eye discharge ENT Ears, Nose, Mouth, and Throat: Reports system reviewed and no additional complaints, except as documented Cardiovascular Cardiovascular: Denies chest pain Respiratory Respiratory: Denies chest congestion and Denies cough Gastrointestinal Gastrointestingal: Reports abdominal pain; Denies constipation, cramping, diarrhea, nausea or vomiting Musculoskeletal Musculoskeletal: Denies arthralgias Integumentary/Breasts Skin/Breast: Denies rash Neurologic Neurologic: Denies paresthesias Physical Exam General General appearance: alert and in no apparent distress Head Head exam: atraumatic, normocephalic and normal inspection Eye Eye exam: Present normal appearance, PERRL and EOMI ENT ENT exam: Present normal exam, normal oropharynx, mucous membranes moist, TM's normal bilaterally and normal external ear exam Neck Neck exam: Present normal inspection, full ROM and trachea midline; Absent meningismus or lymphadenopathy Chest Chest inspection: Present normal inspection and symmetric chest wall rise; Absent tenderness Respiratory Respiratory exam: Present normal lung sounds bilaterally; Absent respiratory distress Card
[2021-11-11 15:30] VITALS: BP 110/77; PULSE 98; RESP 16; TEMP 36.6; O2SAT 98; BMI 26.5
--- NOTE | 2021-11-11 15:37 | CT_ITS ---
PROCEDURE INFORMATION: Exam: CT Abdomen And Pelvis With Contrast Exam date and time: 11/11/2021 4:32 PM Age: 26 years old Clinical indication: Abdominal pain; Generalized TECHNIQUE: Imaging protocol: Computed tomography of the abdomen and pelvis with contrast. Radiation optimization: All CT scans at this facility use at least one of these dose optimization techniques: automated exposure control; mA and/or kV adjustment per patient size (includes targeted exams where dose is matched to clinical indication); or iterative reconstruction. Contrast material: ISOVUE; Contrast volume: 75 ml; Contrast route: IV; COMPARISON: CT ABDOMEN PELVIS W CON 01/30/2019 1:47 AM FINDINGS: Liver: Normal. No mass. Gallbladder and bile ducts: Normal. No calcified stones. No ductal dilation. Pancreas: Normal. No ductal dilation. Spleen: Normal. No splenomegaly. Adrenal glands: Normal. No mass. Kidneys and ureters: Normal. No hydronephrosis. Stomach and bowel: No diverticulitis. No bowel obstruction or evidence of appendicitis. Appendix: Normal appendix. Intraperitoneal space: Unremarkable. No free air. No significant fluid collection. Vasculature: Unremarkable. No abdominal aortic aneurysm. Lymph nodes: Unremarkable. No enlarged lymph nodes. Urinary bladder: Unremarkable as visualized. Reproductive: Unremarkable as visualized. Bones/joints: Unremarkable. No acute fracture. Soft tissues: Unremarkable. Other findings: No other acute pathology seen. As above. IMPRESSION: 1. No diverticulitis. No bowel obstruction or evidence of appendicitis. 2. No other acute pathology seen. As above.
--- NOTE | 2021-11-11 15:47 | HMH.EDGENADL ---
Discharge Plan Disposition Patient Disposition: Home, Self-Care Condition: Good Chief Complaint: Abdominal Pain Prescriptions Prescriptions: No Action prednisone 20 MG tablet 20 mg PO BID Qty: 10 0RF minocycline 100 MG tablet 100 mg PO BID Qty: 20 0RF loratadine 10 MG tablet 10 mg PO DAILY Qty: 10 0RF nitrofurantoin monohyd/m-cryst 100 MG capsule 100 mg PO BID Qty: 14 0RF Referrals Follow up/Referrals: Marla Glover MD [Primary Care Provider] - See instructions Activity Restrictions/Add. Instructions Additional Instructions/Restrictions: Ibuprofen or Tylenol for pain. Additional instructions for ABDOMINAL PAIN: See your physician as soon as possible for further evaluation. Return immediately if worsening abdominal pain, vomiting, shortness of breath, fever, vomiting of blood or abdominal distention. Clinical Impressions Clinical Impression: Abdominal pain, Abdominal muscle strain Instructions Patient Instructions: DI for Acute Abdominal Pain Discharge ED Provider: Shyam Mariscal General Adult HPI General Chief complaint: Abdominal Pain Stated complaint: knot near belly button Time Seen by Provider: 11/11/21 15:47 Mode of Arrival: Ambulatory Limitations: No Limitations Description of Symptoms (Recalled from ER Triage Doc. by RN): to ed from [facility] sent for eval due to abd pain. pt states she has had abd pain and a knot around belly button x 1 month, today she was jumping on a trampoline today fell landing on her stomach and states pain became worse, pt denies fever, nausea, vomiting History of Present Illness HPI narrative: Patient is sent from the urgent treatment center. 30 minutes prior to arrival she was playing on a trampoline with her kids and fell on her abdomen. She now has periumbilical pain without vomiting. Denies any other injuries. States that she has had knots around her umbilicus for about 1 month. She has had prior sections, no other abdominal surgeries. Related Data Previous Rx's Medication Instructions Recorded loratadine 10 mg tablet 10 mg PO DAILY #10 tabs 08/20/21 minocycline 100 mg tablet 100 mg PO BID #20 tabs 08/20/21 prednisone 20 mg tablet 20 mg PO BID #10 tabs 08/20/21 nitrofurantoin 100 mg PO BID #14 caps 10/03/21 monohydrate/macrocrystals 100 mg capsule Allergies Allergy/AdvReac Type Severity Reaction Status Date / Time kiwi Allergy Mild Verified 11/11/21 14:47 latex Allergy Mild Verified 11/11/21 14:47 [facility] Social History (Updated 11/11/21 @ 15:25 by Alex Mohamud APRN) Smoking Status: Current every day smoker tobacco type: cigarettes packs per day: 1 and smokeless tobacco second hand exposure: Yes alcohol intake: never counseling provided: none substance use type: denies use current occupational status: other Travel in the last 8 weeks: None household members: significant other housing: house ROS Obtained: Yes Systems reviewed as appropriate & no additional complaints except as documented ENT Ears, Nose, Mouth, and Throat: Denies neck pain Cardiovascular Cardiovascular: Denies chest pain Respiratory Respiratory: Denies shortness of breath Gastrointestinal Gastrointestingal: Reports abdominal pain; Denies vomiting Musculoskeletal Musculoskeletal: Denies back pain and Denies neck pain Physical Exam General General appearance: alert and in no apparent distress Head Head exam: atraumatic and normocephalic Eye Eye exam: Present normal appearance and EOMI ENT ENT exam: Present mucous membranes moist Neck Neck exam: Present normal inspection and trachea midline Chest Chest inspection: Present normal inspection and symmetric chest wall rise Respiratory Respiratory exam: Present normal lung sounds bilaterally; Absent respiratory distress Cardiovascular Cardiovascular exam: Present regular rate, normal rhythm and normal heart sounds Abdominal Exam Abdominal exam: Present soft, tendernes
--- NOTE | 2021-11-11 15:50 | PC.NURSE ---
PT AMBULATED TO BR
[2021-11-11 16:15] VITALS: BP 110/48; PULSE 80; RESP 20; O2SAT 97
[2021-11-11 16:15] LABS: Microscopic, Urine URINE MICROSCOPIC (MICROSCOPIC)
[2021-11-11 16:16] LABS: Basophils # 0.1 K/mm3 (0-0.2); Basophils % 1.1 % (0.1-2.0); Eosinophils # 0.1 K/mm3 (0.0-0.4); Eosinophils % 1.3 % (0.1-12.0); Hematocrit 43.2 % (37.0-47.0); Hemoglobin 14.3 g/dL (12.2-16.2); Lymphocytes # 2.9 K/mm3 (0.7-4.5); Lymphocytes % 28.1 % (10-50); Mean Corpuscular HGB Conc 33.1 g/dL (31.8-35.4); Mean Corpuscular Hemoglobin 30.2 pg (27.0-31.2); Mean Corpuscular Volume 91.2 fl (81-99); Mean Platelet Volume 8.7 fl (7.4-10.4); Monocytes # 0.4 K/mm3 (0.1-1.0); Neutrophils # 6.7 K/mm3 (1.8-7.8); Neutrophils % 65.4 % (37.0-80.0); Platelet Count 361 K/mm3 (142-424); Red Blood Count 4.74 M/mm3 (4.20-5.40); Red Cell Distribution Width 12.9 % (11.5-17.5); White Blood Count 10.3 K/mm3 (4.8-10.8)
[2021-11-11 16:17] LABS: Appearance,Urine CLEAR (Clear); Bilirubin,Urine Negative (Negative); Blood, Urine Negative (Negative); Color,Urine YELLOW (Yellow); Glucose,Urine (UA) Negative (Negative); Ketones,Urine Negative (Negative); Leukocyte Esterase,Urine Negative (Negative); Nitrate,Urine Negative (Negative); Protein,Urine Negative (Negative)
[2021-11-11 16:25] LABS: Alanine Aminotransferase 22 U/L (12-78); Albumin Level 4.2 g/dl (3.5-5.0); Albumin/Globulin Ratio 1.5 (1.1-1.8); Alkaline Phosphatase 76 U/L (38-126); Anion Gap 11.5 mEq/L (5-15); Aspartate Amino Transferase 25 U/L (14-36); Bilirubin,Total 0.5 mg/dl (0.2-1.3); Blood Urea Nitrogen 8 mg/dl (7-17); Calcium 9.2 mg/dl (8.4-10.2); Carbon Dioxide 23 mmol/L (22.0-30.0); Chloride 110 mmol/L (98-107); Creatinine Clearance Estimated 131 mL/min (50-200); Estimated Glomerular Filt Rate 101 ml/min (>60); GFR (African American) 122 ML/MIN (>60); Globulin 2.8 g/dL (1.3-3.2); Glucose 94 mg/dl (74-100); Potassium 3.5 mmoL/L (3.5-5.1); Sodium 141 mmol/L (136-145); Urine Pregnancy, HCG Qual. Negative (Negative)
[2021-11-11 16:39] LABS: Bacteria,Urine Trace /lpf; RBC,Urine Occasional #/hpf (0-3)
[2021-11-11 18:16] VITALS: BP 113/74; PULSE 74; RESP 16; TEMP 36.6; O2SAT 98
== END 2021-11-11 18:18 | disposition home or self-care (01) ==
LOC: UTC 15:19 → ER 15:24
PROVIDERS: Emergency Provider Emergency Medicine; PCP Family Medicine
DX: S39.011A Strain of muscle, fascia and tendon of abdomen, initial encounter; Y93.44 Activity, trampolining; Z79.899 Other long term (current) drug therapy; Z72.0 Tobacco use
CPT/HCPCS: 74177; 80053; 81001; 81025; 85025; 96374; 99284; Q9967

== ENCOUNTER → 2021-12-25 14:14 | Outpatient (CLI) | payer OTHER, SELFPAY ==
--- NOTE | 2021-12-25 14:14 | MR_ITS ---
FINAL REPORT CLINICAL HISTORY: left knee pain left knee pain x 1 year knee insability knee swelling COMPARISON: Plain films dated May 18, 2021 FINDINGS: Multiplanar MR imaging of the right knee was performed without contrast. The medial and lateral menisci are intact without evidence of meniscal tear. The anterior and posterior cruciate ligaments are intact. The medial collateral ligament and lateral ligamentous complex are intact. There are foci of patellar tendinitis. The quadriceps tendon is intact. There is no evidence of fracture. There is a 4.4 cm area of heterogeneous abnormal signal in the proximal tibial metaphysis having appearance most worrisome for osteonecrosis. Mass is felt less likely. A small joint effusion is seen. The musculature is intact. No soft tissue mass or cyst is identified. IMPRESSION: Area of heterogeneous abnormal signal in the proximal tibial metaphysis most worrisome for osteonecrosis. Small joint effusion. Foci of patellar tendinitis. Reviewed, Interpreted and Dictated by Justen Alvarado III, MD Transcribed by [employer] and [facility]
== END ==
PROVIDERS: Visit Provider Orthopaedic Surgery
DX: M25.562 Pain in left knee (principal); M25.462 Effusion, left knee
CPT/HCPCS: 73721

== ENCOUNTER 2022-03-11 19:52 | Emergency (ER) | payer OTHER, SELFPAY ==
[2022-03-11 19:53] VITALS: BP 115/53; PULSE 88; RESP 16; TEMP 37.3; O2SAT 99; BMI 23.8
--- NOTE | 2022-03-11 20:48 | XR_ITS ---
PROCEDURE INFORMATION: Exam: XR Facial Bones, Minimum of 3 Views, Complete Exam date and time: 03/11/2022 9:04 PM Age: 26 years old Clinical indication: Face pain; Patient HX: States she fell tonight, with left sided facial pain; Additional info: Fall TECHNIQUE: Imaging protocol: XR of the facial bones, minimum of 3 views. Complete exam. COMPARISON: CR XR MANDIBLE MIN 4V 03/11/2020 6:37 PM FINDINGS: Sinuses: Well aerated. No opacification. Bones/joints: No fracture. Soft tissues: Multiple soft tissue piercings. IMPRESSION: No acute osseous abnormality. If there is ongoing concern, cross-sectional imaging can be obtained for further evaluation.
--- NOTE | 2022-03-11 20:48 | XR_ITS ---
PROCEDURE INFORMATION: Exam: XR Left Tibia and Fibula Exam date and time: 03/11/2022 9:16 PM Age: 26 years old Clinical indication: Pain; Lower leg; Left; Additional info: Fall TECHNIQUE: Imaging protocol: Radiologic exam of the Left tibia and fibula. Views: 2 views. COMPARISON: MR KNEE LT WO CON 12/25/2021 2:22 PM FINDINGS: Bones/joints: Normal. Soft tissues: Normal. IMPRESSION: No acute findings.
--- NOTE | 2022-03-11 20:48 | XR_ITS ---
PROCEDURE INFORMATION: Exam: XR Chest Exam date and time: 03/11/2022 9:01 PM Age: 26 years old Clinical indication: Injury or trauma; Fall; Blunt trauma (contusions or hematomas) TECHNIQUE: Imaging protocol: Radiologic exam of the chest. Views: 2 views. COMPARISON: CR XR CHEST AP 05/01/2019 5:43 AM FINDINGS: Lungs: No consolidation. Pleural spaces: No pneumothorax. Heart/Mediastinum: No cardiomegaly. Bones/joints: Mild scoliosis. No acute fracture. IMPRESSION: No acute findings.
--- NOTE | 2022-03-11 20:48 | XR_ITS ---
PROCEDURE INFORMATION: Exam: XR Left Wrist Exam date and time: 03/11/2022 9:11 PM Age: 26 years old Clinical indication: Pain; Wrist; Left; Additional info: Fall TECHNIQUE: Imaging protocol: Radiologic exam of the Left wrist. Views: 3 or more views. COMPARISON: No relevant prior studies available. FINDINGS: Bones/joints: Normal. Soft tissues: Normal. IMPRESSION: No acute findings.
--- NOTE | 2022-03-11 20:48 | XR_ITS ---
PROCEDURE INFORMATION: Exam: XR Left Shoulder Exam date and time: 03/11/2022 9:08 PM Age: 26 years old Clinical indication: Patient HX: Fall tonight, left shoulder pain TECHNIQUE: Imaging protocol: Radiologic exam of the Left shoulder. Views: 2 or more views. COMPARISON: CR XR CHEST 2V 03/11/2022 9:01 PM FINDINGS: Bones/joints: Normal. Soft tissues: Normal. IMPRESSION: No acute findings.
--- NOTE | 2022-03-11 20:48 | XR_ITS ---
PROCEDURE INFORMATION: Exam: XR Thoracic Spine Exam date and time: 03/11/2022 9:02 PM Age: 26 years old Clinical indication: Pain in thoracic spine; Patient HX: PT states she fell tonight, with back pain; Additional info: Fall TECHNIQUE: Imaging protocol: Radiologic exam of the thoracic spine. Views: 2 views. COMPARISON: CR XR CHEST 2V 03/11/2022 9:01 PM FINDINGS: Bones/joints: Mild scoliosis. No acute fracture. Soft tissues: Unremarkable. IMPRESSION: No acute findings.
--- NOTE | 2022-03-11 20:48 | XR_ITS ---
PROCEDURE INFORMATION: Exam: XR Pelvis Exam date and time: 03/11/2022 9:15 PM Age: 26 years old Clinical indication: Pelvic pain; Additional info: Fall TECHNIQUE: Imaging protocol: Radiologic exam of the pelvis. Views: 1 or 2 view. COMPARISON: CT ABDOMEN PELVIS W CON 11/11/2021 4:32 PM FINDINGS: Bones/joints: Unremarkable. No acute fracture. Soft tissues: Unremarkable. IMPRESSION: No acute findings.
--- NOTE | 2022-03-11 20:51 | ECG_ITS ---
APPROVED REPORT Exam: Resting ECG HR:76 bpm ECG Measurements Heart Rate 76 AXES MD 165 P 60 QRSd 117 QRS 47 QT 370 T 57 QTc 401 Conclusion SINUS RHYTHM POSSIBLE RIGHT VENTRICULAR CONDUCTION DELAY [RSR (QR) IN V1/V2] BORDERLINE ECG UNCONFIRMED REPORT Electronically signed by : Cosme Alcocer MD 03/12/2022 20:11:08
[2022-03-11 20:59] VITALS: BP 108/63; BP 113/64; BP 96/49; PULSE 78; PULSE 80; PULSE 81
--- NOTE | 2022-03-11 21:39 | HMH.EDFALL ---
Discharge Plan Disposition Patient Disposition: Home, Self-Care Chief Complaint: Fall Prescriptions Prescriptions: No Action prednisone 20 MG tablet 20 mg PO BID Qty: 10 0RF minocycline 100 MG tablet 100 mg PO BID Qty: 20 0RF loratadine 10 MG tablet 10 mg PO DAILY Qty: 10 0RF nitrofurantoin monohyd/m-cryst 100 MG capsule 100 mg PO BID Qty: 14 0RF Referrals Follow up/Referrals: Provider,Referral, MD [Primary Care Provider] - See instructions Clinical Impressions Clinical Impression: Contusion of multiple sites, Fall, Concussion, Concussion with loss of consciousness Instructions Patient Instructions: DI for Concussion Discharge ED Provider: True Pratt Fall HPI General Chief Complaint: Fall Stated Complaint: ao 03/11 fall, left leg/hand/back/facial pain Time Seen by Provider: 03/11/22 21:39 Mode of Arrival: Wheelchair Source of Information: Medical Record Limitations: No Limitations Description of Symptoms (Recalled from ER Triage Doc. by RN): pt states she was taking a shower and move and fell and doesn't remeber anything until her brother helped her up. pt c/o lt faical pain,lt wrist,lt hodges, back pain. History of Present Illness HPI Narrative: reported slip type injury in shower - possible loc - MD complaint: fall Onset (ago): hour(s) Fall from: standing Fall witnessed: no Place fall occurred: home Loss of consciousness: unsure Prolonged down time: no Symptoms prior to fall: none Context: tripped/slipped Location of injury: head and neck Location of injury - extremities: Left: forearm and lower leg Severity: moderate Associated symptoms (after fall): headache Related Data Previous Rx's Medication Instructions Recorded loratadine 10 mg tablet 10 mg PO DAILY #10 tabs 08/20/21 minocycline 100 mg tablet 100 mg PO BID #20 tabs 08/20/21 prednisone 20 mg tablet 20 mg PO BID #10 tabs 08/20/21 nitrofurantoin 100 mg PO BID #14 caps 10/03/21 monohydrate/macrocrystals 100 mg capsule Allergies Allergy/AdvReac Type Severity Reaction Status Date / Time kiwi Allergy Mild Verified 01/17/22 11:26 latex Allergy Mild Verified 01/17/22 11:26 [facility] Disclaimer: The information contained in this section may have been updated after the patient was seen, as this information can be updated by other users. Social History Smoking Status: Never smoker second hand exposure: Yes alcohol intake: never counseling provided: none substance use type: denies use current occupational status: other Travel in the last 8 weeks: None household members: significant other housing: house ROS Obtained: Yes All systems reviewed & no additional complaints except as documented Physical Exam General General appearance: alert Head Head exam: normocephalic Eye Eye exam: Present PERRL and EOMI ENT ENT exam: Present mucous membranes moist Neck Neck exam: Present trachea midline Respiratory Respiratory exam: Absent respiratory distress Cardiovascular Cardiovascular exam: Present regular rate Abdominal Exam Abdominal exam: Present soft Extremities Exam Extremities exam: Present full ROM Neurological Exam Neurological exam: Present alert, oriented X3 and CN II-XII intact; Absent motor sensory deficit Psychiatric Psychiatric exam: Present normal affect Skin Skin exam: Absent rash Medical Decision Making Medical Records Medical records reviewed: Yes I reviewed the patient's medical records. Yon Inquiry Pt receiving controlled substance: No Vital Signs: 03/11/22 19:53 03/11/22 20:59 Temperature 99.2 F Temperature Source Oral Pulse Rate [Orthostatic Lying] 78 Pulse Rate [Orthostatic Sitting] 81 Pulse Rate [Orthostatic Standing] 80 Pulse Rate [Right] 88 Respiratory Rate 16 Blood Pressure [Orthostatic Lying Right Arm] 96/49 L Blood Pressure [Orthostatic Sitting Right Arm] 108/63 L Blood Pressu
--- NOTE | 2022-03-11 21:43 | CT_ITS ---
PROCEDURE INFORMATION: Exam: CT Head Without Contrast Exam date and time: 03/11/2022 9:56 PM Age: 26 years old Clinical indication: Injury or trauma; Fall TECHNIQUE: Imaging protocol: Computed tomography of the head without contrast. Radiation optimization: All CT scans at this facility use at least one of these dose optimization techniques: automated exposure control; mA and/or kV adjustment per patient size (includes targeted exams where dose is matched to clinical indication); or iterative reconstruction. COMPARISON: CT HEAD/BRAIN WO CON 05/01/2019 5:30 AM FINDINGS: Brain: No large territorial infarction. No hemorrhage. No mass effect or midline shift. Cerebral ventricles: No ventriculomegaly. Paranasal sinuses: No fluid levels. Mastoid air cells: Visualized mastoid air cells are well aerated. Bones/joints: No acute fracture. Soft tissues: No significant soft tissue abnormality. IMPRESSION: No acute intracranial abnormality.
--- NOTE | 2022-03-11 21:43 | CT_ITS ---
PROCEDURE INFORMATION: Exam: CT Cervical Spine Without Contrast Exam date and time: 03/11/2022 9:59 PM Age: 26 years old Clinical indication: Injury or trauma; Fall TECHNIQUE: Imaging protocol: Computed tomography of the cervical spine without contrast. Radiation optimization: All CT scans at this facility use at least one of these dose optimization techniques: automated exposure control; mA and/or kV adjustment per patient size (includes targeted exams where dose is matched to clinical indication); or iterative reconstruction. COMPARISON: CT CERVICAL SPINE WO CON 05/01/2019 5:33 AM FINDINGS: Bones/joints: No acute fracture. Lungs: Lung apices are normal. Soft tissues: No soft tissue swelling. IMPRESSION: No acute findings.
[2022-03-11 22:00] LABS: Basophils # 0.1 K/mm3 (0-0.2); Basophils % 0.9 % (0.1-2.0); Eosinophils # 0.2 K/mm3 (0.0-0.4); Eosinophils % 1.3 % (0.1-12.0); Hemoglobin 15.3 g/dL (12.2-16.2); Lymphocytes # 2.9 K/mm3 (0.7-4.5); Lymphocytes % 24.8 % (10-50); Mean Corpuscular HGB Conc 34.1 g/dL (31.8-35.4); Mean Corpuscular Hemoglobin 30.1 pg (27.0-31.2); Mean Corpuscular Volume 88.3 fl (81-99); Mean Platelet Volume 8.3 fl (7.4-10.4); Monocytes # 0.4 K/mm3 (0.1-1.0); Monocytes % 3.2 % (1.7-9.3); Neutrophils # 8.3 K/mm3 (1.8-7.8); Neutrophils % 69.8 % (37.0-80.0); Platelet Count 407 K/mm3 (142-424); Red Cell Distribution Width 13.2 % (11.5-17.5); White Blood Count 11.8 K/mm3 (4.8-10.8)
[2022-03-11 22:06] LABS: Chloride 105 mmol/L (98-107)
[2022-03-11 22:07] LABS: Potassium 3.8 mmoL/L (3.5-5.1); Sodium 141 mmol/L (136-145)
[2022-03-11 22:09] LABS: Alanine Aminotransferase 25 U/L (12-78); Aspartate Amino Transferase 38 U/L (14-36); Blood Urea Nitrogen 11 mg/dl (7-17); Creatinine Clearance Estimated 113 mL/min (50-200); Estimated Glomerular Filt Rate 101 ml/min (>60); GFR (African American) 122 ML/MIN (>60)
[2022-03-11 22:10] LABS: Albumin Level 4.8 g/dl (3.5-5.0); Albumin/Globulin Ratio 1.5 (1.1-1.8); Alkaline Phosphatase 92 U/L (38-126); Anion Gap 12.8 mEq/L (5-15); Bilirubin,Total 0.4 mg/dl (0.2-1.3); Calcium 9.7 mg/dl (8.4-10.2); Carbon Dioxide 27 mmol/L (22.0-30.0); Globulin 3.3 g/dL (1.3-3.2); Glucose 83 mg/dl (74-100); Total Protein,Serum 8.1 g/dl (6.3-8.2)
[2022-03-11 22:25] VITALS: BP 116/49; PULSE 81; RESP 18; TEMP 37.2; O2SAT 97
[2022-03-11 22:25] LABS: Troponin I < 0.01 ng/ml (0.00-0.034)
== END 2022-03-11 22:48 | disposition home or self-care (01) ==
PROVIDERS: Emergency Provider Emergency Medicine
DX: M25.532 Pain in left wrist (principal); M79.662 Pain in left lower leg; M79.632 Pain in left forearm; M54.9 Dorsalgia, unspecified; R51.9 Headache, unspecified; F17.210 Nicotine dependence, cigarettes, uncomplicated; Z79.52 Long term (current) use of systemic steroids; W17.89XA Other fall from one level to another, initial encounter; Y93.E1 Activity, personal bathing and showering
CPT/HCPCS: 70150; 70450; 71046; 72070; 72125; 72170; 73030; 73110; 73590; 80053; 84484; 85025; 93005; 99285

== ENCOUNTER 2022-03-28 18:32 | Emergency (ER) | payer OTHER, SELFPAY ==
[2022-03-28] VITALS (7 sets, daily range): BP systolic 103–120; BP diastolic 67–75; PULSE 80–100; RESP 15–20; TEMP 37; O2SAT 97–100; BMI 26.5
--- NOTE | 2022-03-28 18:32 | ECG_ITS ---
APPROVED REPORT Exam: Resting ECG HR:105 bpm ECG Measurements Heart Rate 105 AXES ME 150 P 58 QRSd 115 QRS 32 QT 346 T 46 QTc 407 Conclusion SINUS TACHYCARDIA INCOMPLETE RIGHT BUNDLE BRANCH BLOCK [90+ ms QRS DURATION, TERMINAL R IN V1/V2, 40+ ms S IN I/aVL/V4/V5/V6] ABNORMAL RHYTHM ECG UNCONFIRMED REPORT Electronically signed by : Cosme Alcocer MD 03/29/2022 10:06:04
--- NOTE | 2022-03-28 18:42 | XR_ITS ---
PROCEDURE INFORMATION: Exam: XR Chest Exam date and time: 03/28/2022 7:05 PM Age: 26 years old Clinical indication: Pain; Other: Epigastric; Additional info: Epigastric pain to shoulder. Shielded TECHNIQUE: Imaging protocol: Radiologic exam of the chest. Views: 1 view. Portable upright chest x-ray COMPARISON: CR XR CHEST 2V 03/11/2022 9:01 PM FINDINGS: Lungs: No consolidation or lung nodules. Pleural spaces: No pleural effusion. No pneumothorax. Heart/Mediastinum: No abnormalities. No cardiomegaly. No pulmonary vascular congestion. Bones/joints: No fractures or bone lesions. IMPRESSION: No acute findings in the chest. No change since 03/11/2022.
[2022-03-28 18:51] LABS: Basophils # 0.2 K/mm3 (0-0.2); Basophils % 1.7 % (0.1-2.0); Eosinophils # 0.2 K/mm3 (0.0-0.4); Eosinophils % 2.5 % (0.1-12.0); Hematocrit 46.1 % (37.0-47.0); Hemoglobin 15.2 g/dL (12.2-16.2); Lymphocytes # 2.8 K/mm3 (0.7-4.5); Lymphocytes % 28.5 % (10-50); Mean Corpuscular Hemoglobin 29.9 pg (27.0-31.2); Mean Corpuscular Volume 90.6 fl (81-99); Mean Platelet Volume 8.9 fl (7.4-10.4); Monocytes # 0.3 K/mm3 (0.1-1.0); Monocytes % 3.2 % (1.7-9.3); Neutrophils # 6.3 K/mm3 (1.8-7.8); Neutrophils % 64.2 % (37.0-80.0); Platelet Count 349 K/mm3 (142-424); Red Blood Count 5.08 M/mm3 (4.20-5.40); Red Cell Distribution Width 13.3 % (11.5-17.5); White Blood Count 9.7 K/mm3 (4.8-10.8)
[2022-03-28 18:59] LABS: Chloride 107 mmol/L (98-107); Potassium 3.7 mmoL/L (3.5-5.1); Sodium 140 mmol/L (136-145)
[2022-03-28 19:01] LABS: Blood Urea Nitrogen 7 mg/dl (7-17); Creatinine Clearance Estimated 131 mL/min (50-200); Estimated Glomerular Filt Rate 101 ml/min (>60); GFR (African American) 122 ML/MIN (>60)
[2022-03-28 19:02] LABS: Alanine Aminotransferase 19 U/L (12-78); Albumin Level 4.4 g/dl (3.5-5.0); Albumin/Globulin Ratio 1.4 (1.1-1.8); Alkaline Phosphatase 63 U/L (38-126); Anion Gap 13.7 mEq/L (5-15); Aspartate Amino Transferase 24 U/L (14-36); Bilirubin,Total 0.8 mg/dl (0.2-1.3); Calcium 9.2 mg/dl (8.4-10.2); Carbon Dioxide 23 mmol/L (22.0-30.0); Globulin 3.1 g/dL (1.3-3.2); Glucose 103 mg/dl (74-100); Lipase 68 U/L (23-300); Total Protein,Serum 7.5 g/dl (6.3-8.2)
--- NOTE | 2022-03-28 19:17 | HMH.EDGENADL ---
Discharge Plan Disposition Patient Disposition: Home, Self-Care Condition: Good Chief Complaint: PAIN Prescriptions Prescriptions: No Action prednisone 20 MG tablet 20 mg PO BID Qty: 10 0RF minocycline 100 MG tablet 100 mg PO BID Qty: 20 0RF loratadine 10 MG tablet 10 mg PO DAILY Qty: 10 0RF nitrofurantoin monohyd/m-cryst 100 MG capsule 100 mg PO BID Qty: 14 0RF Clinical Impressions Clinical Impression: Chest pain Instructions Patient Instructions: DI for Atypical Chest Pain Discharge ED Provider: Melchor Boggs General Adult HPI <Melchor Boggs MD - Last Filed: 03/28/22 20:27> General Chief complaint: PAIN Stated complaint: chest pain Time Seen by Provider: 03/28/22 18:40 Mode of Arrival: Ambulatory Source of Information: Patient Limitations: No Limitations History of Present Illness HPI narrative: This is a 26-year-old female with history of heart murmur who is presenting with chest pain. Patient states that she was walking around in the [employer] [facility] about 5:30 PM 1 hour prior to arrival when she began having chest pain. Left-sided, stabbing/burning/cramping and radiated to the right side of her chest. Not associated with nausea, vomiting, diaphoresis, shortness of breath, weakness, cough, and patient denies any recent history of chest trauma, heavy lifting, or any other concerns. Denies oral contraceptive use, DVT or PE risk factors. Related Data Previous Rx's Medication Instructions Recorded loratadine 10 mg tablet 10 mg PO DAILY #10 tabs 08/20/21 minocycline 100 mg tablet 100 mg PO BID #20 tabs 08/20/21 prednisone 20 mg tablet 20 mg PO BID #10 tabs 08/20/21 nitrofurantoin 100 mg PO BID #14 caps 10/03/21 monohydrate/macrocrystals 100 mg capsule Allergies Allergy/AdvReac Type Severity Reaction Status Date / Time kiwi Allergy Mild Verified 03/26/22 13:22 latex Allergy Mild Verified 03/26/22 13:22 PFSH <Melchor Boggs MD - Last Filed: 03/28/22 20:27> [facility] Disclaimer: The information contained in this section may have been updated after the patient was seen, as this information can be updated by other users. Medical History delivery delivered Social History Smoking Status: Current every day smoker tobacco type: cigarettes packs per day: 1 and smokeless tobacco second hand exposure: Yes alcohol intake: never counseling provided: none substance use type: denies use current occupational status: other Travel in the last 8 weeks: None household members: significant other housing: house <Melchor Boggs MD - Last Filed: 03/28/22 20:27> ROS Obtained: Yes All systems reviewed & no additional complaints except as documented Physical Exam <Melchor Boggs MD - Last Filed: 03/28/22 20:27> General General appearance: alert and in no apparent distress Head Head exam: atraumatic, normocephalic and normal inspection Eye Eye exam: Present normal appearance, PERRL and EOMI ENT ENT exam: Present normal exam, normal oropharynx, mucous membranes moist and normal external ear exam Neck Neck exam: Present normal inspection, full ROM and trachea midline; Absent meningismus or lymphadenopathy Chest Chest inspection: Present normal inspection and symmetric chest wall rise; Absent tenderness Respiratory Respiratory exam: Present normal lung sounds bilaterally; Absent respiratory distress, wheezes, stridor or accessory muscle use Cardiovascular Cardiovascular exam: Present regular rate, normal rhythm and systolic murmur; Absent JVD Abdominal Exam Abdominal exam: Present soft and normal bowel sounds; Absent distention, tenderness or guarding Extremities Exam Extremities exam: Present normal inspection, full ROM and normal capillary refill; Absent calf tenderness Back Exam Back exam: Present normal inspection; Absent tenderness Neurological Exam N
[2022-03-28 19:30] LABS: HCG Qualitative, Serum Negative (Negative)
[2022-03-28 19:34] LABS: D-Dimer 0.67 ug/mL (0.0-0.5)
[2022-03-28 19:36] LABS: Troponin I < 0.01 ng/ml (0.00-0.034)
--- NOTE | 2022-03-28 20:22 | CT_ITS ---
PROCEDURE INFORMATION: Exam: CTA Chest With Contrast Exam date and time: 03/28/2022 8:50 PM Age: 26 years old Clinical indication: Abnormal findings; Abnormal diagnostic tests; Elevated d-dimer; Additional info: Dimer and cp TECHNIQUE: Imaging protocol: Computed tomographic angiography of the chest with contrast. 3D rendering (Not supervised by radiologist): MIP and/or 3D reconstructed images were created by the technologist. Radiation optimization: All CT scans at this facility use at least one of these dose optimization techniques: automated exposure control; mA and/or kV adjustment per patient size (includes targeted exams where dose is matched to clinical indication); or iterative reconstruction. Contrast material: ISOVUE; Contrast volume: 70 ml; Contrast route: INTRAVENOUS (IV); COMPARISON: CR XR CHEST PORTABLE 03/28/2022 7:05 PM FINDINGS: Pulmonary arteries: No pulmonary emboli. Aorta: Unremarkable. No aortic aneurysm. No aortic dissection. Lungs: Unremarkable. No consolidation. No masses. Pleural spaces: Unremarkable. No pneumothorax. No pleural effusion. Heart: Unremarkable. No cardiomegaly. No pericardial effusion. Lymph nodes: Unremarkable. No enlarged lymph nodes. Gallbladder and bile ducts: Contracted gallbladder. Bones/joints: Unremarkable. No acute fracture. Soft tissues: Unremarkable. IMPRESSION: No pulmonary emboli.
[2022-03-28 20:37] LABS: Lactic Acid 0.8 mmol/L (0.7-2.1)
== END 2022-03-28 21:36 | disposition home or self-care (01) ==
PROVIDERS: Emergency Provider Emergency Medicine
DX: R07.89 Other chest pain (principal); F17.210 Nicotine dependence, cigarettes, uncomplicated
CPT/HCPCS: 71045; 71275; 80053; 83605; 83690; 84484; 84703; 85025; 85378; 93005; 99285; Q9967

== ENCOUNTER → 2022-04-01 15:20 | Outpatient (CLI) | payer OTHER, SELFPAY ==
--- NOTE | 2022-04-01 15:20 | MR_ITS ---
FINAL REPORT TECHNIQUE: Multiplanar and multisequence imaging the right knee was obtained without contrast. CLINICAL HISTORY: knee pain. knee instability. no injury or trauma. COMPARISON: December 2021 FINDINGS: Bones: There is no acute fracture. There is a lesion in the proximal tibial metadiaphysis with peripheral T2 hyperintense signal and central decreased signal similar to the prior exam favoring a bone infarct. Remaining bone marrow signal intensity is preserved. The joint space is preserved. There are no full thickness cartilage defects. Menisci: No meniscal tear is present. Ligaments: No cruciate or collateral ligament tear is present. Tendons/Muscles: The quadriceps and patellar tendons are within normal limits. The biceps femoris tendon and iliotibial tract are intact. The popliteus tendon is normal. Other: There is no joint effusion. Remaining soft tissues are normal. 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 Reviewed, Interpreted and Dictated by Amrita Ahuja MD Transcribed by [employer] [facility] and [facility]
== END ==
PROVIDERS: Visit Provider Orthopaedic Surgery
DX: M25.562 Pain in left knee (principal)
CPT/HCPCS: 73721

== ENCOUNTER 2022-08-03 21:20 | Emergency (ER) | payer OTHER, SELFPAY ==
[2022-08-03 21:21] VITALS: BP 130/82; PULSE 74; RESP 17; TEMP 36.8; O2SAT 99; BMI 27.4
--- NOTE | 2022-08-03 21:45 | XR_ITS ---
PROCEDURE INFORMATION: Exam: XR Left Knee Exam date and time: 08/03/2022 9:49 PM Age: 26 years old Clinical indication: Pain; Knee; Left; Additional info: Left knee pain TECHNIQUE: Imaging protocol: Radiologic exam of the left knee. Views: 3 views. COMPARISON: MR KNEE LT WO CON 04/01/2022 3:20 PM FINDINGS: Bones/joints: Normal. Soft tissues: Normal. IMPRESSION: No acute findings.
--- NOTE | 2022-08-03 22:39 | HMH.EDLOEX ---
Discharge Plan Disposition Patient Disposition: Home, Self-Care Prescriptions Prescriptions: No Action meloxicam 15 mg tablet 15 mg PO DAILY Qty: 30 2RF Referrals Follow up/Referrals: Bernardo Lr [Primary Care Provider] - See instructions Clinical Impressions Clinical Impression: Injury of knee, left, Fall Instructions Patient Instructions: DI for Knee Sprain Discharge ED Provider: Terence (ED),True Escobar Lower Extremity Injury HPI General Chief Complaint: Extremity Injury, Lower Stated Complaint: AO fell injured L knee Time Seen by Provider: 08/03/22 22:00 Mode of Arrival: Ambulatory Source of Information: Patient and Medical Record Limitations: No Limitations Description of Symptoms (Recalled from ER Triage Doc. by RN): pt to the ED with left knee pain. pt reports she was at a [employer]dinf when she slipped on the concrete floor and fell on her left knee. pt denies any other pain or injury at this time History of Present Illness HPI Narrative: acute fall and injured lt knee as hit on concrete [place] complaint: knee injury Onset (ago): hour(s) Injury: Left: knee Type of Injury: blunt Place: home Severity: moderate Context: fall and direct blow Associated symptoms: able to partially bear weight Other symptoms: none Related Data Previous Rx's Medication Instructions Recorded meloxicam 15 mg tablet 15 mg PO DAILY #30 tabs 06/05/22 Allergies Allergy/AdvReac Type Severity Reaction Status Date / Time kiwi Allergy Mild Verified 06/04/22 15:47 latex Allergy Mild Verified 06/04/22 15:47 [facility] Disclaimer: The information contained in this section may have been updated after the patient was seen, as this information can be updated by other users. Medical History delivery delivered Social History Smoking Status: Never smoker second hand exposure: Yes alcohol intake: never counseling provided: none substance use type: denies use current occupational status: other Travel in the last 8 weeks: None household members: significant other housing: house ROS Obtained: Yes All systems reviewed & no additional complaints except as documented Physical Exam General General appearance: alert Head Head exam: normocephalic Eye Eye exam: Present PERRL and EOMI ENT ENT exam: Present mucous membranes moist Neck Neck exam: Present trachea midline Respiratory Respiratory exam: Absent respiratory distress Cardiovascular Cardiovascular exam: Present regular rate Abdominal Exam Abdominal exam: Present soft Expanded Lower Extremity Exam Left: Knee exam: Present tenderness, swelling and knee extension intact; Absent full ROM, erythema or effusion Neurovascular/Tendon exam: Absent pulse deficit or motor deficit Neurological Exam Neurological exam: Present alert, oriented X3 and CN II-XII intact; Absent motor sensory deficit Psychiatric Psychiatric exam: Present normal affect Skin Skin exam: Present intact Medical Decision Making Medical Records Medical records reviewed: Yes I reviewed the patient's medical records. Yon Inquiry Pt receiving controlled substance: No Vital Signs: 08/03/22 21:21 Temperature 98.3 F Temperature Source Oral Pulse Rate [Left Radial] 74 Respiratory Rate 17 Blood Pressure [Right Arm] 130/82 Blood Pressure Mean [Right Arm] 98 Blood Pressure Source [Right Arm] Automatic Cuff Blood Pressure Position [Right Arm] Sitting 02 Sat by Pulse Oximetry 99 Oxygen Delivery Method Room Air Lab Data Lab results reviewed: Yes I reviewed the patient's lab results. Orders (Tests/Meds): ORDERS Category Date Time Status XR knee LT 3V Stat Exams 08/03/22 21:45 Completed Radiology Data #1: Image(s): Knee Image Reviewed: Yes I reviewed the patient's radiology image Preliminary Findings
[2022-08-03 22:50] VITALS: BP 125/79; PULSE 82; RESP 16; TEMP 36.8
== END 2022-08-03 22:57 | disposition home or self-care (01) ==
PROVIDERS: Emergency Provider Emergency Medicine; PCP Internal Medicine
DX: M25.562 Pain in left knee (principal); W01.0XXA Fall on same level from slipping, tripping and stumbling without subsequent striking against object, initial encounter
CPT/HCPCS: 73562; 99283

== ENCOUNTER 2022-08-07 19:01 | Emergency (ER) | payer OTHER, SELFPAY ==
[2022-08-07 19:02] VITALS: BP 115/79; PULSE 89; RESP 16; TEMP 37.6; O2SAT 99; BMI 27.4
--- NOTE | 2022-08-07 19:19 | CT_ITS ---
PROCEDURE INFORMATION: Exam: CT Abdomen And Pelvis With Contrast Exam date and time: 08/07/2022 8:19 PM Age: 26 years old Clinical indication: Abdominal pain; Generalized; Additional info: Abd pain, distention TECHNIQUE: Imaging protocol: Computed tomography of the abdomen and pelvis with contrast. Radiation optimization: All CT scans at this facility use at least one of these dose optimization techniques: automated exposure control; mA and/or kV adjustment per patient size (includes targeted exams where dose is matched to clinical indication); or iterative reconstruction. Contrast material: ISOVUE; Contrast volume: 75 ml; Contrast route: IV; REPORTING DATA: Count of CT and Cardiac NM exams in prior 12 months: This patient has received 4 known CTs and 0 known cardiac nuclear medicine studies in the 12 months prior to the current study. COMPARISON: CT ABDOMEN PELVIS W CON 11/11/2021 4:32 PM FINDINGS: Liver: Normal. No mass. Gallbladder and bile ducts: No calcified stones. No ductal dilation. Pancreas: Normal enhancement. No ductal dilation. Spleen: No splenomegaly. Adrenal glands: No mass. Kidneys and ureters: No hydronephrosis. Stomach and bowel: No obstruction. No mucosal thickening. Appendix: No evidence of appendicitis. Intraperitoneal space: Small volume complex appearing free fluid within the pelvis. Vasculature: No abdominal aortic aneurysm. Lymph nodes: No enlarged lymph nodes. Urinary bladder: No acute abnormality. Reproductive: Complex appearing ovoid lesion within the left pelvis measuring 2.9 x 4.0 cm. Bones/joints: No acute fracture. Soft tissues: No soft tissue swelling. IMPRESSION: 1. Complex appearing ovoid lesion within the left pelvis which is not a simple cyst and could be further evaluated with targeted ultrasound. 2. Small volume complex appearing free fluid within the pelvis which may be proteinaceous or hemorrhagic.
[2022-08-07 19:26] LABS: Microscopic, Urine URINE MICROSCOPIC (MICROSCOPIC)
[2022-08-07 19:30] VITALS: BP 124/70; PULSE 92; O2SAT 97
[2022-08-07 19:37] LABS: Basophils % 0.5 % (0.1-2.0); Eosinophils # 0.2 K/mm3 (0.0-0.4); Eosinophils % 2.2 % (0.1-12.0); Hematocrit 40.4 % (37.0-47.0); Hemoglobin 13.8 g/dL (12.2-16.2); Lymphocytes % 31.9 % (10-50); Mean Corpuscular Hemoglobin 30.7 pg (27.0-31.2); Mean Corpuscular Volume 90.2 fl (81-99); Mean Platelet Volume 8.4 fl (7.4-10.4); Monocytes # 0.4 K/mm3 (0.1-1.0); Monocytes % 4.2 % (1.7-9.3); Neutrophils # 5.6 K/mm3 (1.8-7.8); Neutrophils % 61.1 % (37.0-80.0); Platelet Count 313 K/mm3 (142-424); Red Blood Count 4.48 M/mm3 (4.20-5.40); Red Cell Distribution Width 13.3 % (11.5-17.5); White Blood Count 9.2 K/mm3 (4.8-10.8)
[2022-08-07 19:40] LABS: Chloride 103 mmol/L (98-107)
[2022-08-07 19:41] LABS: Appearance,Urine CLEAR (Clear); Bilirubin,Urine Negative (Negative); Blood, Urine TRACE-I (Negative); Color,Urine YELLOW (Yellow); Glucose,Urine (UA) Negative (Negative); Ketones,Urine Negative (Negative); Leukocyte Esterase,Urine TRACE (Negative); Nitrate,Urine Negative (Negative); Protein,Urine Negative (Negative); Specific Gravity, Urine 1.025 (1.005-1.030)
[2022-08-07 19:41] LABS: Potassium 3.8 mmoL/L (3.5-5.1); Sodium 138 mmol/L (136-145)
[2022-08-07 19:43] LABS: Alanine Aminotransferase 32 U/L (12-78); Alkaline Phosphatase 59 U/L (38-126); Anion Gap 15.8 mEq/L (5-15); Aspartate Amino Transferase 31 U/L (14-36); Bilirubin,Total 0.2 mg/dl (0.2-1.3); Blood Urea Nitrogen 12 mg/dl (7-17); Carbon Dioxide 23 mmol/L (22.0-30.0); Creatinine Clearance Estimated 158 mL/min (50-200); Estimated Glomerular Filt Rate 121 ml/min (>60); GFR (African American) 146 ML/MIN (>60)
[2022-08-07 19:44] LABS: Albumin Level 4.1 g/dl (3.5-5.0); Albumin/Globulin Ratio 1.5 (1.1-1.8); Calcium 9.4 mg/dl (8.4-10.2); Globulin 2.7 g/dL (1.3-3.2); Glucose 107 mg/dl (74-100); Total Protein,Serum 6.8 g/dl (6.3-8.2)
--- NOTE | 2022-08-07 19:45 | HMH.EDGENADL ---
Discharge Plan Disposition Patient Disposition: Home, Self-Care Chief Complaint: Weakness Prescriptions Prescriptions: No Action sertraline 100 mg tablet 100 mg PO DAILY Label Comments: TAKE 1 TABLET BY MOUTH ONCE DAILY IN THE MORNING DIRECTED aripiprazole 5 mg tablet 5 mg PO DAILY Label Comments: TAKE 1 TABLET BY MOUTH ONCE DAILY meloxicam 15 mg tablet 15 mg PO DAILY Referrals Follow up/Referrals: Bernardo Lr [Primary Care Provider] - See instructions Eliana Almazan DO [Staff Physician] - See instructions Roxanna Calvo MD [Staff Physician] - See instructions Clinical Impressions Clinical Impression: Abdominal pain, Ovarian cyst Instructions Patient Instructions: DI for Ovarian Cyst Discharge ED Provider: Nick Gomez General Adult HPI <Nick Gomez MD - Last Filed: 08/07/22 19:48> General Chief complaint: Weakness Stated complaint: weak.shaly claminy, missed 2 periods Time Seen by Provider: 08/07/22 19:48 Mode of Arrival: Ambulatory Source of Information: Patient Limitations: No Limitations Description of Symptoms (Recalled from ER Triage Doc. by RN): pt states hasn't had a period in 2 months. pt c/o weakness and dizziness x one month History of Present Illness HPI narrative: Patient presents to the emergency department with multiple complaints. She states that she feels generally weak, clammy and has had to miss periods recently. She had a negative test at home. She denies any fever, chills, cough, congestion. Denies any nausea or vomiting. States that she has had a tubal in the past. Describes abdominal distention and seems that her abdomen is becoming more protuberant recently. Related Data Home Medications Medication Instructions Recorded Confirmed aripiprazole 5 mg tablet 5 mg PO DAILY . 08/07/22 08/07/22 meloxicam 15 mg tablet 15 mg PO DAILY . 08/07/22 08/07/22 sertraline 100 mg tablet 100 mg PO DAILY . 08/07/22 08/07/22 Allergies Allergy/AdvReac Type Severity Reaction Status Date / Time kiwi Allergy Mild Verified 06/04/22 15:47 latex Allergy Mild Verified 06/04/22 15:47 PFSH <Nick Gomez MD - Last Filed: 08/07/22 19:48> [facility] Disclaimer: The information contained in this section may have been updated after the patient was seen, as this information can be updated by other users. Medical History delivery delivered Social History Smoking Status: Current every day smoker tobacco type: cigarettes packs per day: 1 and smokeless tobacco second hand exposure: Yes alcohol intake: never counseling provided: none substance use type: denies use current occupational status: other Travel in the last 8 weeks: None household members: significant other housing: house <Nick Gomez MD - Last Filed: 08/07/22 19:48> ROS Obtained: Yes All systems reviewed & no additional complaints except as documented Constitutional Constitutional: Reports malaise Gastrointestinal Gastrointestingal: Reports other ( Abdominal pain, protuberant ) Musculoskeletal Musculoskeletal: Reports system reviewed and no additional complaints, except as documented Physical Exam <Nick Gomez MD - Last Filed: 08/07/22 19:48> General General appearance: alert and in no apparent distress Head Head exam: atraumatic and normocephalic Eye Eye exam: Present normal appearance, PERRL and EOMI Respiratory Respiratory exam: Present normal lung sounds bilaterally Cardiovascular Cardiovascular exam: Present regular rate, normal rhythm and normal heart sounds Abdominal Exam Abdominal exam: Present other ( soft, protuberant, mild generalized abdominal tenderness. No guarding. No rebound. Normal bowel sounds.) Extremities Exam Extremities exam: Present normal inspection and full ROM Neurological Exam Neurological exam: Present al
[2022-08-07 19:55] LABS: HCG Qualitative, Serum Negative (Negative)
[2022-08-07 20:12] LABS: Bacteria,Urine 2+ /lpf
--- NOTE | 2022-08-07 21:26 | US_ITS ---
PROCEDURE INFORMATION: Exam: US Duplex Artery or Vein of the Abdominal and/or Reproductive Organs, Limited Exam date and time: 08/07/2022 9:52 PM Clinical indication: Abnormal findings; Abnormal imaging test; Patient HX: Llq pain; Additional info: Abnormal CT TECHNIQUE: Imaging protocol: Real-time duplex ultrasound scan of the arterial or venous flow of the abdomen and/or reproductive organs, with color Doppler flow and spectral waveform analysis with image documentation. Exam focused on the region of clinical interest. Duplex exam was performed to evaluate for vascular conditions. COMPARISON: No relevant prior studies available. FINDINGS: Normal color flow and spectral waveforms bilateral ovaries. IMPRESSION: No evidence for torsion. See below. PROCEDURE INFORMATION: Exam: US Pelvis, Transvaginal Exam date and time: 08/07/2022 9:52 PM Age: 26 years old Clinical indication: Abnormal findings; Abnormal imaging test; Patient HX: Llq pain; Additional info: Abnormal CT TECHNIQUE: Imaging protocol: Real-time transvaginal pelvic ultrasound with image documentation. Transvaginal imaging was used for better evaluation of the endometrium, adnexa, and/or cervix. COMPARISON: US TRANSVAGINAL 07/06/2021 1:19 PM FINDINGS: Uterus: Uterus is normal. Endometrial stripe is normal. Right ovary/adnexa: Multiple peripheral ovarian follicles on right. Left ovary/adnexa: Complex left ovarian lesion measuring 2.3 x 1.7 x 2.6 cm. Intraperitoneal space: Free fluid within the cul-de-sac measuring 3.0 x 2.5 x 3.2 cm. IMPRESSION: 1. Complex left ovarian lesion which is indeterminate and may be benign or malignant. Short-term follow-up ultrasound is recommended in 6-12 weeks time for resolution. 2. Multiple peripheral ovarian follicles on right which can be seen with PCOS. 3. Free fluid within the cul-de-sac measuring 3.0 x 2.5 x 3.2 cm.
--- NOTE | 2022-08-07 21:27 | PC.NURSE ---
notified xray for transvaginal ultrasound
--- NOTE | 2022-08-07 21:51 | PC.NURSE ---
pt transferred for ultrasound
--- NOTE | 2022-08-07 22:15 | PC.NURSE ---
pt back in room from US at this time
[2022-08-07 22:32] VITALS: BP 116/87; PULSE 91; RESP 14; TEMP 37.1; O2SAT 97
== END 2022-08-07 22:43 | disposition home or self-care (01) ==
PROVIDERS: Emergency Provider Emergency Medicine; PCP Internal Medicine
DX: R53.1 Weakness (principal); R42 Dizziness and giddiness; R19.04 Left lower quadrant abdominal swelling, mass and lump; F17.210 Nicotine dependence, cigarettes, uncomplicated
CPT/HCPCS: 74177; 76830; 80053; 81001; 84703; 85025; 87086; 96361; 96374; 99284; 99285; Q9967

== ENCOUNTER → 2022-09-18 12:49 | Outpatient (CLI) | payer OTHER, SELFPAY ==
--- NOTE | 2022-09-18 12:54 | US_ITS ---
PROCEDURE: US TRANSVAGINAL CLINICAL INDICATION: pelvic pain COMPARISON: US US TRANSVAGINAL from 08/07/2022 FINDINGS: UTERUS: 9cm x 5cmx 4cm with a combined endometrial thickness of 3mm. LEFT OVARY: [id number] with a volume of 7.6ml. RIGHT OVARY: 2cmx [id number] with a volume of 3.5ml. There are several small follicles on the right ovary. Both ovaries are seen and appear normal. Doppler flow to both ovaries are seen. There is no fluid in the cul-de-sac. IMPRESSION: 1. Anteverted uterus that is slightly bulky with a thin endometrium measuring 3 mm. There is a 5 mm nabothian cyst in the cervix. 2. There is a 2 mm hyperechoic area in the posterior left side of the myometrium of questionable significance. 3. There is a scar on the anterior lower uterus. 4. Both ovaries are seen and appear normal. There are several small follicles on the right ovary. The previously described left ovarian complex cyst has resolved. 5. There is no fluid in the cul-de-sac. Dictated by: Matt Shirley MD 09/18/2022 14:45 Matt Shirley MD in [facility] 09/18/2022 14:45
== END ==
PROVIDERS: PCP Internal Medicine; Visit Provider Obstetrics & Gynecology
DX: R10.2 Pelvic and perineal pain (principal)
CPT/HCPCS: 76830

== ENCOUNTER 2022-11-04 19:32 | Emergency (ER) | payer OTHER, SELFPAY ==
[2022-11-04 19:32] VITALS: BP 146/77; PULSE 96; RESP 16; TEMP 36.8; O2SAT 97; BMI 29.7
--- NOTE | 2022-11-04 19:37 | ECG_ITS ---
APPROVED REPORT Exam: Resting ECG HR:93 bpm ECG Measurements Heart Rate 93 AXES SC 165 P 56 QRSd 112 QRS 35 QT 347 T 58 QTc 398 Conclusion SINUS RHYTHM POSSIBLE LEFT ATRIAL ENLARGEMENT [-0.1mV P-WAVE IN V1/V2] INCOMPLETE RIGHT BUNDLE BRANCH BLOCK [90+ ms QRS DURATION, TERMINAL R IN V1/V2, 40+ ms S IN I/aVL/V4/V5/V6] MODERATE ST DEPRESSION [0.05+ mV ST DEPRESSION] ABNORMAL ECG UNCONFIRMED REPORT Electronically signed by : Cosme Alcocer MD 11/05/2022 19:42:38
--- NOTE | 2022-11-04 19:42 | XR_ITS ---
PROCEDURE INFORMATION: Exam: XR Chest Exam date and time: 11/04/2022 7:53 PM Age: 27 years old Clinical indication: Sternal or substernal pain; Additional info: Cp TECHNIQUE: Imaging protocol: Radiologic exam of the chest. Views: 2 views. COMPARISON: CR XR CHEST PORTABLE 03/28/2022 7:05 PM FINDINGS: Lungs: Low lung volumes. Pulmonary vasculature grossly normal. No gross pulmonary infiltrates or edema pattern. Pleural spaces: No pleural effusion. No pneumothorax. Heart/Mediastinum: Heart size normal. No tracheal/mediastinal shift. Bones/joints: No acute osseous abnormalities are identified. IMPRESSION: No acute thoracic process.
[2022-11-04 19:43] VITALS: PULSE 96
[2022-11-04 19:56] LABS: Basophils # 0.1 K/mm3 (0-0.2); Basophils % 0.7 % (0.1-2.0); Eosinophils # 0.2 K/mm3 (0.0-0.4); Eosinophils % 1.6 % (0.1-12.0); Hematocrit 44.7 % (37.0-47.0); Hemoglobin 15.7 g/dL (12.2-16.2); Lymphocytes # 2.8 K/mm3 (0.7-4.5); Lymphocytes % 28.5 % (10-50); Mean Corpuscular HGB Conc 35.2 g/dL (31.8-35.4); Mean Corpuscular Hemoglobin 31.2 pg (27.0-31.2); Mean Corpuscular Volume 88.6 fl (81-99); Monocytes # 0.3 K/mm3 (0.1-1.0); Monocytes % 3.2 % (1.7-9.3); Neutrophils # 6.5 K/mm3 (1.8-7.8); Platelet Count 321 K/mm3 (142-424); Red Blood Count 5.05 M/mm3 (4.20-5.40); White Blood Count 9.9 K/mm3 (4.8-10.8)
[2022-11-04 20:05] LABS: Alanine Aminotransferase 25 U/L (12-78); Albumin Level 4.6 g/dl (3.5-5.0); Albumin/Globulin Ratio 1.3 (1.1-1.8); Alkaline Phosphatase 65 U/L (38-126); Anion Gap 15.5 mEq/L (5-15); Aspartate Amino Transferase 27 U/L (14-36); Bilirubin,Total 0.3 mg/dl (0.2-1.3); Blood Urea Nitrogen 10 mg/dl (7-17); Calcium 9.6 mg/dl (8.4-10.2); Carbon Dioxide 24 mmol/L (22.0-30.0); Chloride 105 mmol/L (98-107); Creatinine Clearance Estimated 169 mL/min (50-200); Estimated Glomerular Filt Rate 120 ml/min (>60); GFR (African American) 145 ML/MIN (>60); Globulin 3.5 g/dL (1.3-3.2); Glucose 114 mg/dl (74-100); Potassium 3.5 mmoL/L (3.5-5.1); Sodium 141 mmol/L (136-145); Total Protein,Serum 8.1 g/dl (6.3-8.2)
[2022-11-04 20:21] LABS: Troponin I < 0.01 ng/ml (0.00-0.034)
[2022-11-04 20:25] LABS: HCG Qualitative, Serum Negative (Negative)
--- NOTE | 2022-11-04 20:37 | HMH.EDGENADL ---
Discharge Plan Disposition Patient Disposition: Home, Self-Care Condition: Good Prescriptions Prescriptions: No Action omeprazole 20 mg capsule,delayed release(DR/EC) 20 mg PO DAILY norgestimate-ethinyl estradiol [Sprintec (28)] 0.25-35 mg-mcg tablet 1 tab PO DAILY Qty: 84 3RF sertraline 100 mg tablet 100 mg PO DAILY Patient Comments: TAKE 1 TABLET BY MOUTH ONCE DAILY IN THE MORNING DIRECTED aripiprazole 5 mg tablet 5 mg PO DAILY Patient Comments: TAKE 1 TABLET BY MOUTH ONCE DAILY meloxicam 15 mg tablet 15 mg PO DAILY Referrals Follow up/Referrals: Bernardo Lr [Primary Care Provider] - See instructions Activity Restrictions/Add. Instructions Additional Instructions/Restrictions: Please speak with your doctor about resuming your SSRI medication, your work-up otherwise did not indicate any blood clot to your lung or any other acute findings. Your test was negative.Please return to the emergency department if you experience any new or worsening symptoms. Clinical Impressions Clinical Impression: Selective serotonin reuptake inhibitor (SSRI) discontinuation syndrome Discharge ED Provider: Steven Brunner Adult HPI General Chief complaint: Chest Pain Stated complaint: cp Time Seen by Provider: 11/04/22 20:36 Mode of Arrival: Ambulatory Source of Information: Patient Limitations: No Limitations Description of Symptoms (Recalled from ER Triage Doc. by RN): pt c/o chest pain that comes and goes x 2 weeks. pt thinks might be pregant History of Present Illness HPI narrative: Patient presents for evaluation of multiple symptoms including diffuse intermittent numbness, mild frontal headache, generalized weakness, fatigue, substernal nonradiating nonexertional nonpleuritic nonpositional nonreproducible chest pain, no exacerbating or alleviating factors for any of the symptoms, symptoms are nonfocal regarding weakness and numbness, has not had similar symptoms before. No associated fevers no sick contacts, no recent travel, no personal or family history of DVT or PE. Upon further questioning patient admits to abrupt discontinuation of home medication of sertraline 100 mg p.o. daily as she believed that she may be and did not want to encounter any teratogenic effects. No head injury, no neck pain or back pain. No ocular complaints. Related Data Home Medications Medication Instructions Recorded Confirmed aripiprazole 5 mg tablet 5 mg PO DAILY . 08/07/22 10/30/22 meloxicam 15 mg tablet 15 mg PO DAILY . 08/07/22 10/30/22 sertraline 100 mg tablet 100 mg PO DAILY . 08/07/22 10/30/22 omeprazole 20 mg capsule,delayed 20 mg PO DAILY 10/30/22 10/30/22 release Previous Rx's Medication Instructions Recorded norgestimate 0.25 mg-ethinyl 1 tab PO DAILY #84 tabs 10/30/22 estradiol 35 mcg tablet (Sprintec (28)) Allergies Allergy/AdvReac Type Severity Reaction Status Date / Time latex Allergy Mild Verified 10/30/22 13:54 [facility] Disclaimer: The information contained in this section may have been updated after the patient was seen, as this information can be updated by other users. Medical History (Updated 11/04/22 @ 22:21 by Steven Brunner MD) delivery delivered Irregular periods/menstrual cycles LLQ pain Surgical History Hx of section Hx of tubal ligation Family History Other Diabetes Heart attack Hypertension Social History Smoking Status: Current every day smoker tobacco type: cigarettes packs per day: 1 second hand exposure: Yes alcohol intake: never counseling provided: none substance use type: denies use current occupational status: other Travel in the last 8 weeks: None household members: significant other housing:
[2022-11-04 21:07] LABS: D-Dimer 0.83 ug/mL (0.0-0.5)
--- NOTE | 2022-11-04 21:12 | CT_ITS ---
PROCEDURE INFORMATION: Exam: CTA Chest With Contrast Exam date and time: 11/04/2022 9:44 PM Age: 27 years old Clinical indication: Abnormal findings; Abnormal diagnostic tests; Elevated d-dimer; Additional info: Pleuritic chest pain, positive dimer TECHNIQUE: Imaging protocol: Computed tomographic angiography of the chest with contrast. Exam focused on the arteries. 3D rendering (Not supervised by radiologist): MIP and/or 3D reconstructed images were created by the technologist. Radiation optimization: All CT scans at this facility use at least one of these dose optimization techniques: automated exposure control; mA and/or kV adjustment per patient size (includes targeted exams where dose is matched to clinical indication); or iterative reconstruction. Contrast material: ISOVUE; Contrast volume: 70 ml; Contrast route: INTRAVENOUS (IV); REPORTING DATA: Count of CT and Cardiac NM exams in prior 12 months: This patient has received 5 known CTs and 0 known cardiac nuclear medicine studies in the 12 months prior to the current study. COMPARISON: CT ANGIO CHEST PE PROTOCOL 03/28/2022 8:50 PM FINDINGS: Pulmonary arteries: The pulmonary arteries enhance appropriately with no evidence of pulmonary embolism. Aorta: No aortic aneurysm or dissection. No mediastinal hematoma. Thyroid: The visualized thyroid gland demonstrates no gross abnormality. Lungs: No acute tracheobronchial abnormalities. No gross pulmonary infiltrates or edema pattern. Minor subsegmental atelectasis bilaterally. No pulmonary mass lesions are identified. Pleural spaces: No pleural effusion. No pneumothorax. Heart: Heart size normal. No pericardial effusion. Mediastinal space: The esophagus is largely contracted but demonstrates no gross abnormality. Lymph nodes: No supraclavicular or axillary adenopathy. No mediastinal or hilar adenopathy. Intraperitoneal space: Visualized upper abdominal structures are unremarkable. Bones/joints: No acute osseous abnormalities are identified. Soft tissues: The soft tissues of the chest wall demonstrate no acute abnormality. IMPRESSION: 1. No evidence of pulmonary embolism or aortic dissection. 2. No acute thoracic process.
[2022-11-04 22:25] VITALS: BP 106/55; PULSE 87; RESP 16; TEMP 36.7; O2SAT 98
== END 2022-11-04 22:26 | disposition home or self-care (01) ==
PROVIDERS: Emergency Provider Emergency Medicine; PCP Internal Medicine
DX: R07.9 Chest pain, unspecified (principal); R51.9 Headache, unspecified; R53.1 Weakness; F17.210 Nicotine dependence, cigarettes, uncomplicated; T43.205A Adverse effect of unspecified antidepressants, initial encounter
CPT/HCPCS: 71046; 71275; 80053; 84484; 84703; 85025; 85378; 93005; 99285; Q9967

== ENCOUNTER 2022-11-21 21:05 | Emergency (ER) | payer OTHER, SELFPAY ==
[2022-11-21 21:19] VITALS: BP 115/86; PULSE 108; RESP 17; TEMP 37.1; O2SAT 99; BMI 29.2
[2022-11-21 21:43] LABS: Basophils % 0.7 % (0.1-2.0); Chloride 105 mmol/L (98-107); Eosinophils # 0.1 K/mm3 (0.0-0.4); Eosinophils % 1.4 % (0.1-12.0); Hematocrit 44.7 % (37.0-47.0); Lymphocytes # 1.8 K/mm3 (0.7-4.5); Lymphocytes % 28.5 % (10-50); Mean Corpuscular HGB Conc 33.5 g/dL (31.8-35.4); Mean Corpuscular Volume 89.6 fl (81-99); Mean Platelet Volume 8.7 fl (7.4-10.4); Monocytes # 0.4 K/mm3 (0.1-1.0); Monocytes % 6.5 % (1.7-9.3); Neutrophils # 4.1 K/mm3 (1.8-7.8); Neutrophils % 62.9 % (37.0-80.0); Platelet Count 289 K/mm3 (142-424); Red Blood Count 4.99 M/mm3 (4.20-5.40); White Blood Count 6.4 K/mm3 (4.8-10.8)
[2022-11-21 21:44] LABS: Potassium 3.5 mmoL/L (3.5-5.1); Sodium 140 mmol/L (136-145)
[2022-11-21 21:46] LABS: Blood Urea Nitrogen 5 mg/dl (7-17); Creatinine Clearance Estimated 161 mL/min (50-200); Estimated Glomerular Filt Rate 120 ml/min (>60); GFR (African American) 145 ML/MIN (>60); Lipase 30 U/L (23-300)
[2022-11-21 21:47] LABS: Anion Gap 16.5 mEq/L (5-15); Calcium 9.3 mg/dl (8.4-10.2); Carbon Dioxide 22 mmol/L (22.0-30.0); Glucose 99 mg/dl (74-100)
--- NOTE | 2022-11-21 21:56 | HMH.EDGENADL ---
Discharge Plan Disposition Patient Disposition: Home, Self-Care Prescriptions Prescriptions: New ondansetron 4 mg tablet,disintegrating 4 mg PO Q6H PRN (Reason: nausea and vomiting) Qty: 10 0RF No Action omeprazole 20 mg capsule,delayed release(DR/EC) 20 mg PO DAILY norgestimate-ethinyl estradiol [Sprintec (28)] 0.25-35 mg-mcg tablet 1 tab PO DAILY Qty: 84 3RF sertraline 100 mg tablet 100 mg PO DAILY Patient Comments: TAKE 1 TABLET BY MOUTH ONCE DAILY IN THE MORNING DIRECTED aripiprazole 5 mg tablet 5 mg PO DAILY Patient Comments: TAKE 1 TABLET BY MOUTH ONCE DAILY meloxicam 15 mg tablet 15 mg PO DAILY Referrals Follow up/Referrals: Bernardo Lr [Primary Care Provider] - See instructions Activity Restrictions/Add. Instructions Additional Instructions/Restrictions: Call your family doctor to establish care for this visit to the emergency department and schedule follow-up within 48 hours to ensure improvement. If you have any worsening of your condition or any other concerning signs or symptoms, return to the emergency department or your primary care doctor for further evaluation. Clinical Impressions Clinical Impression: Fatigue Qualifiers: Fatigue type: chronic, unspecified Qualified Code(s): R53.82 - Chronic fatigue, unspecified Discharge ED Provider: Melchor Boggs General Adult HPI General Chief complaint: PAIN Stated complaint: body aches vomiting Time Seen by Provider: 11/21/22 21:19 Mode of Arrival: Family Vehicle Source of Information: Patient Limitations: No Limitations Description of Symptoms (Recalled from ER Triage Doc. by RN): 27 yo female presents for evaluation following 2 weeks of body aches, followed by 1 episode of vomiting on friday following the po consumption of hamburgers and hotdogs, and realized that she could only smoke about 1/2 of her normal and concluded she was short of air and that she needed a dr to take a look . Pt is a&ox4, skin w/d, pink, no dyspnea present. denies angina. denies any additional n/v/d. LMP: last month and no it wasn't normal, it was on the wrong day . denies dysuria, constipation. pain 3/10 and described as generalized and achey. History of Present Illness HPI narrative: This is a 27-year-old female with history of anxiety, depression presenting with multiple complaints. Patient states that she has been feeling tired and nauseated for the last 2 weeks. Has had vomiting that does not happen at any point in the day in particular, but is associated with food. 1 episode of nonbloody, nonbilious vomiting, but nausea with any food intake. Denies diarrhea, fevers or chills, or any other concerns. Has not figured out anything that makes it better or worse, so came in for the emergency department evaluation. Related Data Home Medications Medication Instructions Recorded Confirmed aripiprazole 5 mg tablet 5 mg PO DAILY . 08/07/22 10/30/22 meloxicam 15 mg tablet 15 mg PO DAILY . 08/07/22 10/30/22 sertraline 100 mg tablet 100 mg PO DAILY . 08/07/22 10/30/22 omeprazole 20 mg capsule,delayed 20 mg PO DAILY 10/30/22 10/30/22 release Previous Rx's Medication Instructions Recorded norgestimate 0.25 mg-ethinyl 1 tab PO DAILY #84 tabs 10/30/22 estradiol 35 mcg tablet (Sprintec (28)) ondansetron 4 mg disintegrating 4 mg PO Q6H PRN nausea and 11/21/22 tablet vomiting #10 tabs Allergies Allergy/AdvReac Type Severity Reaction Status Date / Time latex Allergy Mild Verified 10/30/22 13:54 [facility] Disclaimer: The information contained in this section may have been updated after the patient was seen, as this information can be updated by other users. Medical History (Updated 11/21/22 @ 23:31 by Melchor Boggs MD) delivery delivered Irregular periods/menstrual cycles LLQ pain Surgical History Hx of section Hx of tubal ligation
[2022-11-21 22:12] LABS: Microscopic, Urine URINE MICROSCOPIC (MICROSCOPIC)
[2022-11-21 22:20] LABS: Appearance,Urine CLEAR (Clear); Bilirubin,Urine Negative (Negative); Blood, Urine TRACE-I (Negative); Color,Urine YELLOW (Yellow); Glucose,Urine (UA) Negative (Negative); Ketones,Urine Negative (Negative); Leukocyte Esterase,Urine Negative (Negative); Nitrate,Urine Negative (Negative); Protein,Urine Negative (Negative); Urobilinogen,Urine 0.2 EU/dl (0.2)
[2022-11-21 22:21] LABS: Urine Pregnancy, HCG Qual. Negative (Negative)
[2022-11-21 22:31] LABS: Bacteria,Urine 1+ /lpf; RBC,Urine Occasional #/hpf (0-3)
[2022-11-21 23:54] VITALS: BP 108/75; PULSE 75; RESP 19; TEMP 36.8; O2SAT 98
[2022-11-21 23:57] VITALS: BP 123/81; PULSE 95; RESP 16; TEMP 36.8; O2SAT 100
== END 2022-11-21 23:58 | disposition home or self-care (01) ==
PROVIDERS: Emergency Provider Emergency Medicine; PCP Internal Medicine
DX: R11.10 Vomiting, unspecified (principal); R53.82 Chronic fatigue, unspecified; F41.9 Anxiety disorder, unspecified; F32.A Depression, unspecified
CPT/HCPCS: 80048; 81001; 81025; 83690; 85025; 96361; 96374; 99285; J2405

== ENCOUNTER 2023-02-03 16:50 | Emergency (ER) | payer OTHER, SELFPAY ==
[2023-02-03] VITALS (12 sets, daily range): BP systolic 102–132; BP diastolic 62–82; PULSE 71–90; RESP 16–19; TEMP 36.6–36.8; O2SAT 94–98; BMI 31.1
[2023-02-03 17:09] LABS: Microscopic, Urine URINE MICROSCOPIC (MICROSCOPIC)
[2023-02-03 17:16] LABS: Appearance,Urine CLEAR (Clear); Bilirubin,Urine Negative (Negative); Blood, Urine Negative (Negative); Color,Urine YELLOW (Yellow); Glucose,Urine (UA) Negative (Negative); Ketones,Urine Negative (Negative); Leukocyte Esterase,Urine Negative (Negative); Nitrate,Urine Negative (Negative); Protein,Urine Negative (Negative); Specific Gravity, Urine 1.015 (1.005-1.030); Urobilinogen,Urine 0.2 EU/dl (0.2)
[2023-02-03 17:26] LABS: Bacteria,Urine Trace /lpf; WBC,Urine Occasional #/hpf (0-3)
--- NOTE | 2023-02-03 17:46 | HMH.EDGENADL ---
Discharge Plan Disposition Patient Disposition: Home, Self-Care Prescriptions Prescriptions: No Action omeprazole 20 mg capsule,delayed release(DR/EC) 20 mg PO DAILY norgestimate-ethinyl estradiol [Sprintec (28)] 0.25-35 mg-mcg tablet 1 tab PO DAILY Qty: 84 3RF ondansetron 4 mg tablet,disintegrating 4 mg PO Q6H PRN (Reason: nausea and vomiting) Qty: 10 0RF sertraline 100 mg tablet 100 mg PO DAILY Patient Comments: TAKE 1 TABLET BY MOUTH ONCE DAILY IN THE MORNING DIRECTED aripiprazole 5 mg tablet 5 mg PO DAILY Patient Comments: TAKE 1 TABLET BY MOUTH ONCE DAILY meloxicam 15 mg tablet 15 mg PO DAILY Referrals Follow up/Referrals: Bernardo Lr [Primary Care Provider] - See instructions Activity Restrictions/Add. Instructions Additional Instructions/Restrictions: Call your family doctor to establish care for this visit to the emergency department and schedule follow-up within 48 hours to ensure improvement. If you have any worsening of your condition or any other concerning signs or symptoms, return to the emergency department or your primary care doctor for further evaluation. Take Tylenol 1000 mg every 6 hours (4 times daily) and ibuprofen 400 mg every 6 hours (4 times daily) as needed with food and water to prevent GI upset and kidney damage. Clinical Impressions Clinical Impression: Abdominal pain Instructions Patient Instructions: DI for Acute Abdominal Pain Discharge ED Provider: Melchor Boggs General Adult HPI General Chief complaint: Abdominal Pain Stated complaint: lower abd pain Time Seen by Provider: 02/03/23 16:53 Mode of Arrival: Ambulatory Source of Information: Patient Limitations: No Limitations Description of Symptoms (Recalled from ER Triage Doc. by RN): Presents to ED with c/o cramping lower abd pain that feels like contractions that started this afternoon that radiates into her back. Denies urinary symptoms. Last menstrual period was sometime last month . Denies fevers or recent abd surgeries. Last BM this morning History of Present Illness HPI narrative: 27-year-old female history of hypertension, chronic abdominal pain currently following with [employer], dysmenorrhea, irregular menstrual periods presenting with abdominal cramping. Patient states she has had this pain on and off for a couple of weeks. Last menstrual period was a little over a month ago and was late for her. 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 She does have a history of irregular menstrual periods, so unsure if this is normal for her. States she is currently having lower abdominal pain that feels like contractions, and radiates to her bilateral flanks. No abnormal vaginal discharge or bleeding, urinary symptoms, bowel symptoms, fevers or chills, nausea or vomiting. Pain is mild in intensity, but severe in intensity and last for a couple of minutes when it flares up. Has taken Tylenol, but that does not seem to help. Related Data Home Medications Medication Instructions Recorded Confirmed aripiprazole 5 mg tablet 5 mg PO DAILY . 08/07/22 10/30/22 meloxicam 15 mg tablet 15 mg PO DAILY . 08/07/22 10/30/22 sertraline 100 mg tablet 100 mg PO DAILY . 08/07/22 10/30/22 omeprazole 20 mg capsule,delayed 20 mg PO DAILY 10/30/22 10/30/22 release Previous Rx's Medication Instructions Recorded norgestimate 0.25 mg-ethinyl 1 tab PO DAILY #84 tabs 10/30/22 estradiol 35 mcg tablet (Sprintec (28)) ondansetron 4 mg disintegrating 4 mg PO Q6H PRN nausea and 11/21/22 tablet vomiting #10 tabs Allergies Allergy/AdvReac Type Severity Reaction Status Date / Time latex Allergy Mild Verified 10/30/22 13:54 [facility] Disclaimer: The information contained in this section may have been updated after the patient was seen, as this information can be updated by other users. Medical History (Updated 02/03/23 @ 19:24 by Melchor Boggs MD) delivery d
[2023-02-03 17:59] LABS: Basophils # 0.1 K/mm3 (0-0.2); Basophils % 0.8 % (0.1-2.0); Eosinophils # 0.2 K/mm3 (0.0-0.4); Eosinophils % 2.3 % (0.1-12.0); Hematocrit 42.7 % (37.0-47.0); Hemoglobin 14.7 g/dL (12.2-16.2); Lymphocytes # 2.7 K/mm3 (0.7-4.5); Lymphocytes % 25.3 % (10-50); Mean Corpuscular HGB Conc 34.4 g/dL (31.8-35.4); Mean Corpuscular Volume 90.1 fl (81-99); Mean Platelet Volume 8.4 fl (7.4-10.4); Monocytes # 0.3 K/mm3 (0.1-1.0); Monocytes % 3.2 % (1.7-9.3); Neutrophils # 7.3 K/mm3 (1.8-7.8); Neutrophils % 68.5 % (37.0-80.0); Platelet Count 312 K/mm3 (142-424); Red Blood Count 4.74 M/mm3 (4.20-5.40); Red Cell Distribution Width 13.4 % (11.5-17.5); White Blood Count 10.6 K/mm3 (4.8-10.8)
[2023-02-03 18:08] LABS: Chloride 106 mmol/L (98-107); Potassium 3.8 mmoL/L (3.5-5.1); Sodium 137 mmol/L (136-145)
[2023-02-03 18:11] LABS: Alanine Aminotransferase 39 U/L (12-78); Albumin Level 4.2 g/dl (3.5-5.0); Albumin/Globulin Ratio 1.5 (1.1-1.8); Alkaline Phosphatase 54 U/L (38-126); Anion Gap 9.8 mEq/L (5-15); Aspartate Amino Transferase 39 U/L (14-36); Bilirubin,Total 0.2 mg/dl (0.2-1.3); Blood Urea Nitrogen 9 mg/dl (7-17); Carbon Dioxide 25 mmol/L (22.0-30.0); Creatinine Clearance Estimated 129 mL/min (50-200); Estimated Glomerular Filt Rate 86 ml/min (>60); GFR (African American) 104 ML/MIN (>60); Globulin 2.8 g/dL (1.3-3.2)
[2023-02-03 18:12] LABS: Calcium 8.9 mg/dl (8.4-10.2); Glucose 90 mg/dl (74-100)
[2023-02-03 18:33] LABS: HCG,Quantitative < 2 mIU/ml (0-5.42)
== END 2023-02-03 19:44 | disposition home or self-care (01) ==
PROVIDERS: Emergency Provider Emergency Medicine; PCP Internal Medicine
DX: R10.30 Lower abdominal pain, unspecified (principal); F17.210 Nicotine dependence, cigarettes, uncomplicated
CPT/HCPCS: 80053; 81001; 84702; 85025; 96374; 99284

== ENCOUNTER 2023-07-13 21:41 | Emergency (ER) | payer OTHER, SELFPAY ==
[2023-07-13 21:50] VITALS: BP 142/72; PULSE 98; RESP 18; TEMP 36.7; O2SAT 100; BMI 33.8
[2023-07-13] MEDS: IBUPROFEN 400 MG TABLET PO (22:05)
[2023-07-13] MEDS: ACETAMINOPHEN 500MG TAB 1000 MG PO (22:05)
[2023-07-13] MEDS: diphenhydrAMINE 25MG CAPSULE 25 MG PO (22:05)
[2023-07-13 22:09] LABS: Basophils # 0.1 K/mm3 (0-0.2); Basophils % 1.3 % (0.1-2.0); Eosinophils # 0.3 K/mm3 (0.0-0.4); Eosinophils % 2.4 % (0.1-12.0); Hematocrit 43.5 % (37.0-47.0); Hemoglobin 16.2 g/dL (12.2-16.2); Lymphocytes # 3.1 K/mm3 (0.7-4.5); Lymphocytes % 29.3 % (10-50); Mean Corpuscular HGB Conc 37.3 g/dL (31.8-35.4); Mean Corpuscular Hemoglobin 33.6 pg (27.0-31.2); Mean Corpuscular Volume 90.1 fl (81-99); Mean Platelet Volume 8.5 fl (7.4-10.4); Monocytes # 0.3 K/mm3 (0.1-1.0); Monocytes % 2.8 % (1.7-9.3); Neutrophils # 6.7 K/mm3 (1.8-7.8); Neutrophils % 64.2 % (37.0-80.0); Platelet Count 402 K/mm3 (142-424); Red Blood Count 4.83 M/mm3 (4.20-5.40); Red Cell Distribution Width 13.6 % (11.5-17.5); White Blood Count 10.5 K/mm3 (4.8-10.8)
[2023-07-13 22:13] LABS: Chloride 110 mmol/L (98-107); Sodium 138 mmol/L (136-145)
[2023-07-13 22:15] LABS: Alanine Aminotransferase 38 U/L (12-78); Aspartate Amino Transferase 36 U/L (14-36); Blood Urea Nitrogen 10 mg/dl (7-17); Creatinine Clearance Estimated 160 mL/min (50-200); Estimated Glomerular Filt Rate 100 ml/min (>60); GFR (African American) 121 ML/MIN (>60)
[2023-07-13 22:16] LABS: Albumin Level 4.2 g/dl (3.5-5.0); Albumin/Globulin Ratio 1.3 (1.1-1.8); Alkaline Phosphatase 59 U/L (38-126); Bilirubin,Total 0.6 mg/dl (0.2-1.3); Calcium 9.8 mg/dl (8.4-10.2); Carbon Dioxide 19 mmol/L (22.0-30.0); Globulin 3.2 g/dL (1.3-3.2); Glucose 109 mg/dl (74-100); Total Protein,Serum 7.4 g/dl (6.3-8.2)
[2023-07-13] MEDS: predniSONE 20MG TAB 40 MG PO (22:39)
--- NOTE | 2023-07-13 22:39 | HMH.EDGENADL ---
Discharge Plan Disposition Patient Disposition: Home, Self-Care Condition: Good Prescriptions Prescriptions: New prednisone 50 mg tablet 50 mg PO DAILY 3 Days Qty: 3 0RF No Action omeprazole 20 mg capsule,delayed release(DR/EC) 20 mg PO DAILY norgestimate-ethinyl estradiol [Sprintec (28)] 0.25-35 mg-mcg tablet 1 tab PO DAILY Qty: 84 3RF ondansetron 4 mg tablet,disintegrating 4 mg PO Q6H PRN (Reason: nausea and vomiting) Qty: 10 0RF sertraline 100 mg tablet 100 mg PO DAILY Patient Comments: TAKE 1 TABLET BY MOUTH ONCE DAILY IN THE MORNING DIRECTED aripiprazole 5 mg tablet 5 mg PO DAILY Patient Comments: TAKE 1 TABLET BY MOUTH ONCE DAILY meloxicam 15 mg tablet 15 mg PO DAILY Referrals Follow up/Referrals: Bernardo Lr [Primary Care Provider] - See instructions Activity Restrictions/Add. Instructions Additional Instructions/Restrictions: Your rash seems to be due to hypersensitivity reaction, which is similar to what type of allergy. We hope that it will improve with this course of prednisone which is an anti-inflammatory steroid. However, if your rash is worsening or you have other concerns, return to the emergency department. Follow-up with your primary care provider within 1 week or with a commercial cleaner. Clinical Impressions Clinical Impression: Dermatitis Instructions Patient Instructions: DI for Atopic Dermatitis-Adult Discharge ED Provider: Yasmin Malin General Adult HPI General Chief complaint: Skin/Abscess/Foreign Body Stated complaint: Rash on arms,chest,face and back Time Seen by Provider: 07/13/23 21:47 Mode of Arrival: Ambulatory Source of Information: Patient Limitations: No Limitations Description of Symptoms (Recalled from ER Triage Doc. by RN): pt reports having a rash x2-3wks. pt presents with a vesicular rash to her BUE, chest and back. pt states she has never had chicken pox. History of Present Illness HPI narrative: Beth Glover is a 27-year-old female with previous medical history of heat sensitivity rash but otherwise healthy presenting with rash over the bilateral arms for 3 weeks. Over the past 3 weeks patient has had redness and irritation of her right arm, and over the past few days has begun to involve her left arm. She has never had a rash like this. She does not believe she has had contact with poison [place], other irritants, and she has never had a reaction like this before. No known fevers, mouth lesions, genital lesions, or other concerns. Related Data Home Medications Medication Instructions Recorded Confirmed aripiprazole 5 mg tablet 5 mg PO DAILY . 08/07/22 10/30/22 meloxicam 15 mg tablet 15 mg PO DAILY . 08/07/22 10/30/22 sertraline 100 mg tablet 100 mg PO DAILY . 08/07/22 10/30/22 omeprazole 20 mg capsule,delayed 20 mg PO DAILY 10/30/22 10/30/22 release Previous Rx's Medication Instructions Recorded norgestimate 0.25 mg-ethinyl 1 tab PO DAILY #84 tabs 10/30/22 estradiol 35 mcg tablet (Sprintec (28)) ondansetron 4 mg disintegrating 4 mg PO Q6H PRN nausea and 11/21/22 tablet vomiting #10 tabs prednisone 50 mg tablet 50 mg PO DAILY 3 days #3 tabs 07/13/23 Allergies Allergy/AdvReac Type Severity Reaction Status Date / Time latex Allergy Mild Verified 10/30/22 13:54 [facility] Disclaimer: The information contained in this section may have been updated after the patient was seen, as this information can be updated by other users. Medical History Irregular periods/menstrual cycles LLQ pain delivery delivered Surgical History Hx of tubal ligation Hx of section Family History Other Diabetes Heart attack Hypertension Social History Smoking Status: Current every day smoker tobacco type: cigarettes packs per day: 1 second hand exposure: Yes alcohol intake: never counseling provided: none substance use type: denies use current occupational status: other Travel in the last 8 weeks: None household members: significant other housing: house ROS Obtained: Yes All systems reviewed & no additional complaints except as documented Physical Exam General General appearance: alert and in no apparent distress Head Head exam: atraumatic, normocephalic and normal inspection Eye Eye exam: Present normal appearance, PERRL and EOMI ENT ENT exam: Present normal exam, normal oropharynx, mucous membranes moist, TM's normal bilaterally and normal external ear exam Neck Neck exam: Present normal inspection, full ROM and trachea midline; Absent meningismus or lymphadenopathy Chest Chest inspection: Present normal inspection and symmetric chest wall rise; Absent tenderness Respiratory Respiratory exam: Present normal lung sounds bilaterally; Absent respiratory distress Cardiovascular Cardiovascular exam: Present regular rate and normal rhythm; Absent JVD Abdominal Exam Abdominal exam: Present soft and normal bowel sounds; Absent distention, tenderness or guarding Extremities Exam Extremities exam: Present normal inspection, full ROM and normal capillary refill; Absent calf tenderness Back Exam Back exam: Present normal inspection; Absent tenderness Neurological Exam Neurological exam: Present alert and oriented X3 Psychiatric Psychiatric exam: Present normal affect and normal mood Skin Skin exam: Present warm, dry, intact and other (Macular papular erythematous rash over the right arm. Patient does not have fluid-filled vesicles but she does have raised papules. No blisters, purpura, petechiae. It is blanching. No oropharyngeal involvement. No mucous membrane involvement.) Lymphatic Lymphatic Findings: no adenopathy Medical Decision Making Yon Inquiry Pt receiving controlled substance: No Yon was queried for this patient: No Vital Signs: 07/13/23 21:50 Temperature 98.1 F Temperature Source Oral Pulse Rate [Left] 98 H Respiratory Rate 18 Blood Pressure [Right Arm] 142/72 H Blood Pressure Mean [Right Arm] 95 Blood Pressure Source [Right Arm] Automatic Cuff Blood Pressure Position [Right Arm] Sitting 02 Sat by Pulse Oximetry 100 Oxygen Delivery Method Room Air Lab Data Lab Results 07/13/23 22:00: WBC 10.5, RBC 4.83, Hgb 16.2, Hct 43.5, MCV 90.1, MCH 33.6 H, MCHC 37.3 H, RDW 13.6, Plt Count 402, MPV 8.5, Neut % (Auto) 64.2, Lymph % (Auto) 29.3, Elk % (Auto) 2.8, Eos % (Auto) 2.4, Baso % (Auto) 1.3, Neut # (Auto) 6.7, Lymph # (Auto) 3.1, Elk # (Auto) 0.3, Eos # (Auto) 0.3, Baso # (Auto) 0.1, Sodium 138, Potassium 4.0, Chloride 110 H, Carbon Dioxide 19 L, Anion Gap 13.0, BUN 10, Creatinine 0.70, Estimated Creat Clear 160, Estimated GFR 100, Est GFR ( Amer) 121, Glucose 109 H, Calcium 9.8, Total Bilirubin 0.6, AST 36, ALT 38, Alkaline Phosphatase 59, Total Protein 7.4, Albumin 4.2, Globulin 3.2, Albumin/Globulin Ratio 1.3 07/13/23 22:00 07/13/23 22:00 Orders (Tests/Meds): ED MEDICATIONS Generic Name Dose Route Start Last Admin Trade Name Freq PRN Reason Stop Dose Admin Sodium Chloride 10 ml 07/13/23 22:04 Sodium Chloride 0.9% 10ml Flush Syringe IV 08/12/23 22:03 NEEDED PRN Maintain IV Site Discontinued Medications Generic Name Dose Route Start Last Admin Trade Name Freq PRN Reason Stop Dose Admin Acetaminophen 1,000 mg 07/13/23 21:55 07/13/23 22:05 Acetaminophen 500mg Tab PO 07/13/23 21:56 1,000 mg ONCE ONE Administration Diphenhydramine HCl 25 mg 07/13/23 21:55 07/13/23 22:05 Diphenhydramine 25mg Capsule PO 07/13/23 21:56 25 mg ONCE ONE Administration Ibuprofen 400 mg 07/13/23 21:55 07/13/23 22:05 Ibuprofen 400 Mg Tablet PO 07/13/23 21:56 400 mg ONCE ONE Administration Prednisone 40 mg 07/13/23 22:29 Prednisone 20mg Tab PO 07/13/23 22:30 ONCE ONE ORDERS Category Date Time Status CBC [Complete Blood Count Auto Diff] Stat Lab 07/13/23 22:00 Completed CMP [Comprehensive Metabolic Panel] Stat Lab 07/13/23 22:00 Completed Medical Decision Narrative: Considered multiple causes of patient's rash including dermatitis, urticaria, viral exanthem, dermatitis herpetiformis, bullous impetigo, toxic shock syndrome, other viral rashes such as chickenpox although patient is vaccinated, zoster, herpes, among others. Reassuringly, patient does not have bullae, fluid-filled vesicles, purpura, petechiae, mucous membrane involvement, systemic symptoms, fever, and on my independent review and interpretation of her CBC and CMP she does not have endorgan damage such as renal injury, hepatitis, or other concerns. For this reason patient does not seem to have an emergent cause of her rash and it is possible this rash may be due to contact dermatitis. For this reason gave patient prednisone and prescribed short course of oral prednisone and advised close follow-up with her PCP. Also discussed with her that it is possible she may require antibiotics instead of steroid treatment for this so if she is worsening it is urgent that she return to the emergency department or follow closely with her PCP. Patient understands return precautions and will attempt treatment at home with oral steroids and mild lotions and soaps. Critical Care Critical Care Time Critical Care Time: No
[2023-07-13 23:07] VITALS: BP 128/77; PULSE 79; RESP 18; TEMP 36.7
== END 2023-07-13 22:39 | disposition home or self-care (01) ==
PROVIDERS: Emergency Provider Emergency Medicine; PCP Internal Medicine
DX: L30.9 Dermatitis, unspecified (principal); F17.210 Nicotine dependence, cigarettes, uncomplicated
CPT/HCPCS: 80053; 85025; 99283

== ENCOUNTER 2023-08-29 20:25 | Emergency (ER) | payer OTHER, SELFPAY ==
[2023-08-29 20:27] VITALS: BP 113/94; PULSE 95; RESP 18; TEMP 36.6; O2SAT 97; BMI 33.3
[2023-08-29 20:31] VITALS: BP 113/94; PULSE 95; O2SAT 97
[2023-08-29 20:39] VITALS: BP 108/80; PULSE 83; RESP 18; TEMP 36.6; O2SAT 95
--- NOTE | 2023-08-29 20:43 | ED_ITS ---
Discharge Plan Disposition Patient Disposition: Home, Self-Care Prescriptions Prescriptions: No Action omeprazole 20 mg capsule,delayed release(DR/EC) 20 mg PO DAILY norgestimate-ethinyl estradiol [Sprintec (28)] 0.25-35 mg-mcg tablet 1 tab PO DAILY Qty: 84 3RF ondansetron 4 mg tablet,disintegrating 4 mg PO Q6H PRN (Reason: nausea and vomiting) Qty: 10 0RF sertraline 100 mg tablet 100 mg PO DAILY Patient Comments: TAKE 1 TABLET BY MOUTH ONCE DAILY IN THE MORNING DIRECTED aripiprazole 5 mg tablet 5 mg PO DAILY Patient Comments: TAKE 1 TABLET BY MOUTH ONCE DAILY meloxicam 15 mg tablet 15 mg PO DAILY prednisone 50 mg tablet 50 mg PO DAILY 3 Days Qty: 3 0RF Referrals Follow up/Referrals: Bernardo Lr [Primary Care Provider] - See instructions Clinical Impressions Clinical Impression: Headache, Near syncope, Light headedness Discharge ED Provider: Dario Calvo General Adult HPI General Chief complaint: Dizziness Stated complaint: Dizziness,almost passed out,VINSON Time Seen by Provider: 08/29/23 20:32 Mode of Arrival: Wheelchair Source of Information: Patient Limitations: No Limitations Description of Symptoms (Recalled from ER Triage Doc. by RN): Pt presents to ED for headache & dizziness that has lasted a few hours. Pt states this has happened to her before and they told her she was over-heated Pt is A&O*4 at this time. History of Present Illness HPI narrative: Patient is a 27-year-old female presented with headache lightheadedness and near syncope. She states she started feeling poorly around 4 PM and that her headache slowly worsened over the next 4 hours. She felt lightheaded like she was going to pass out but did not lose consciousness. No chest pain shortness of breath no sudden component of her headache. No neck pain no neurologic symptoms associate with this. She states she has had very similar headaches to this in the past and suffers regularly of headaches. Denies any other past medical problems. Related Data Home Medications Medication Instructions Recorded Confirmed aripiprazole 5 mg tablet 5 mg PO DAILY . 08/07/22 10/30/22 meloxicam 15 mg tablet 15 mg PO DAILY . 08/07/22 10/30/22 sertraline 100 mg tablet 100 mg PO DAILY . 08/07/22 10/30/22 omeprazole 20 mg capsule,delayed 20 mg PO DAILY 10/30/22 10/30/22 release Previous Rx's Medication Instructions Recorded norgestimate 0.25 mg-ethinyl 1 tab PO DAILY #84 tabs 10/30/22 estradiol 35 mcg tablet (Sprintec (28)) ondansetron 4 mg disintegrating 4 mg PO Q6H PRN nausea and 11/21/22 tablet vomiting #10 tabs prednisone 50 mg tablet 50 mg PO DAILY 3 days #3 tabs 07/13/23 Allergies Allergy/AdvReac Type Severity Reaction Status Date / Time latex Allergy Mild Verified 10/30/22 13:54 [facility] Disclaimer: The information contained in this section may have been updated after the patient was seen, as this information can be updated by other users. Medical History Irregular periods/menstrual cycles LLQ pain delivery delivered Surgical History Hx of tubal ligation Hx of section Family History Other Diabetes Heart attack Hypertension Social History Smoking Status: Current every day smoker tobacco type: cigarettes packs per day: 1 second hand exposure: Yes alcohol intake: never counseling provided: none substance use type: denies use current occupational status: other Travel in the last 8 weeks: None household members: significant other housing: house ROS Obtained: Yes All systems reviewed & no additional complaints except as documented Physical Exam General General appearance: alert and in no apparent distress Respiratory Respiratory exam: Present normal lung sounds bilaterally Cardiovascular Cardiovascular exam: Present regular rate and normal rhythm Neurological Exam Neurological exam: Present alert, oriented X3, CN II-XII intact and normal gait; Absent motor sensory deficit Medical Decision Making Yon Inquiry Pt receiving controlled substance: No Vital Signs: 08/29/23 20:27 08/29/23 20:31 08/29/23 20:39 Temperature 97.8 F 97.9 F Temperature Source Oral Oral Pulse Rate 95 H 83 Pulse Rate [Left] 95 H Respiratory Rate 18 18 Blood Pressure 113/94 H 108/80 L Blood Pressure [Right Arm] 113/94 H Blood Pressure Mean [Right Arm] 100 02 Sat by Pulse Oximetry 97 97 95 Oxygen Delivery Method Room Air Room Air 08/29/23 21:00 08/29/23 21:38 Temperature Temperature Source Pulse Rate 81 87 Pulse Rate [Left] Respiratory Rate Blood Pressure 108/80 L 115/71 Blood Pressure [Right Arm] Blood Pressure Mean [Right Arm] 02 Sat by Pulse Oximetry 96 95 Oxygen Delivery Method Lab Data Lab results reviewed: Yes I reviewed the patient's lab results. Lab Results 08/29/23 20:45: WBC 9.2, RBC 4.85, Hgb 14.7, Hct 45.3, MCV 93.4, MCH 30.4, MCHC 32.5, RDW 13.3, Plt Count 359, MPV 8.2, Neut % (Auto) 62.2, Lymph % (Auto) 31.1, Toole % (Auto) 3.9, Eos % (Auto) 1.4, Baso % (Auto) 1.3, Neut # (Auto) 5.7, Lymph # (Auto) 2.9, Toole # (Auto) 0.4, Eos # (Auto) 0.1, Baso # (Auto) 0.1, Sodium 139, Potassium 3.5, Chloride 108 H, Carbon Dioxide 21 L, Anion Gap 13.5, BUN 8, Creatinine 0.80, Estimated Creat Clear 138, Estimated GFR 86, Est GFR ( Amer) 104, Glucose 101 H, Calcium 9.4, Total Bilirubin 0.6, AST 30, ALT 31, Alkaline Phosphatase 63, Total Protein 7.1, Albumin 4.3, Globulin 2.8, Albumin/Globulin Ratio 1.5, Serum HCG, Qual Negative 08/29/23 20:45 08/29/23 20:45 Orders (Tests/Meds): ED MEDICATIONS Generic Name Dose Route Start Last Admin Trade Name Freq PRN Reason Stop Dose Admin Lactated Ringer's 1,000 mls @ 999 mls/hr 08/29/23 20:45 08/29/23 20:46 Lactated Ringer's 1000 Ml Bag IV 08/29/23 21:45 999 mls/hr .Q1H1M PRESTON Administration Discontinued Medications Generic Name Dose Route Start Last Admin Trade Name Freq PRN Reason Stop Dose Admin Diphenhydramine HCl 25 mg 08/29/23 20:36 08/29/23 20:46 Diphenhydramine 50mg/Ml Vial IV 08/29/23 20:37 25 mg ONCE ONE Administration Ketorolac Tromethamine 15 mg 08/29/23 20:36 08/29/23 20:46 Ketorolac 30mg/Ml Vial IV 08/29/23 20:37 15 mg ONCE ONE Administration Prochlorperazine Edisylate 10 mg 08/29/23 20:36 08/29/23 20:46 Prochlorperazine 10mg/2ml Vial IV 08/29/23 20:37 10 mg ONCE ONE Administration ORDERS Category Date Time Status CBC w/Auto Diff [Complete Blood Count Auto Diff] Stat Lab 08/29/23 20:45 Completed CMP [Comprehensive Metabolic Panel] Stat Lab 08/29/23 20:45 Completed HCG Qualitative, Serum Stat Lab 08/29/23 20:45 Completed ECG Data Tracing #1: I reviewed this ECG and interpreted as documented below: Ventricular rate of 81 with sinus rhythm no acute ischemic changes noted there is a normal axis no significant conduction abnormalities Medical Decision Narrative: Well-appearing nontoxic 27-year-old female with a slowly worsening headache lightheadedness and near syncope today. Regarding the syncope we will get an EKG and basic blood work and give IV fluids in addition we will give a migraine cocktail. She does have a slow worsening headache this is not consistent with subarachnoid hemorrhage vascular dissection meningitis etc. No indication for imaging. Will reassess after this initial workup is complete. Reassessment 944 labs unremarkable serial neurologic exams are normal patient feeling much better stable for discharge and outpatient follow-up. No neurovascular or cardiopulmonary emergency identified today. Critical Care Critical Care Time Critical Care Time: No
[2023-08-29] MEDS: PROCHLORPERAZINE 10MG/2ML VIAL 10 MG IV (20:46)
[2023-08-29] MEDS: KETOROLAC 30MG/ML VIAL 15 MG IV (20:46)
[2023-08-29] MEDS: LACTATED RINGERS 1000ML 1,000 ML 999 ML IV (20:46)
[2023-08-29] MEDS: diphenhydrAMINE 50MG/ML VIAL 25 MG IV (20:46)
[2023-08-29 21:00] VITALS: BP 108/80; PULSE 81; O2SAT 96
--- NOTE | 2023-08-29 21:16 | ECG_ITS ---
APPROVED REPORT Exam: Resting ECG HR:81 bpm ECG Measurements Heart Rate 81 AXES ND 186 P 58 QRSd 113 QRS 23 QT 377 T 41 QTc 414 Conclusion SINUS RHYTHM POSSIBLE LEFT ATRIAL ENLARGEMENT [-0.1mV P-WAVE IN V1/V2] LOW QRS VOLTAGE IN PRECORDIAL LEADS [QRS DEFLECTION < 1.0 mV IN CHEST LEADS] INCOMPLETE RIGHT BUNDLE BRANCH BLOCK [90+ ms QRS DURATION, TERMINAL R IN V1/V2, 40+ ms S IN I/aVL/V4/V5/V6] BORDERLINE ECG UNCONFIRMED REPORT Electronically signed by : Alex Calvo, 08/29/2023 23:03:57
[2023-08-29 21:17] LABS: Basophils # 0.1 K/mm3 (0-0.2); Basophils % 1.3 % (0.1-2.0); Eosinophils # 0.1 K/mm3 (0.0-0.4); Eosinophils % 1.4 % (0.1-12.0); Hematocrit 45.3 % (37.0-47.0); Hemoglobin 14.7 g/dL (12.2-16.2); Lymphocytes # 2.9 K/mm3 (0.7-4.5); Lymphocytes % 31.1 % (10-50); Mean Corpuscular HGB Conc 32.5 g/dL (31.8-35.4); Mean Corpuscular Hemoglobin 30.4 pg (27.0-31.2); Mean Corpuscular Volume 93.4 fl (81-99); Mean Platelet Volume 8.2 fl (7.4-10.4); Monocytes # 0.4 K/mm3 (0.1-1.0); Monocytes % 3.9 % (1.7-9.3); Neutrophils # 5.7 K/mm3 (1.8-7.8); Neutrophils % 62.2 % (37.0-80.0); Platelet Count 359 K/mm3 (142-424); Red Blood Count 4.85 M/mm3 (4.20-5.40); Red Cell Distribution Width 13.3 % (11.5-17.5); White Blood Count 9.2 K/mm3 (4.8-10.8)
[2023-08-29 21:18] LABS: Chloride 108 mmol/L (98-107); Potassium 3.5 mmoL/L (3.5-5.1); Sodium 139 mmol/L (136-145)
[2023-08-29 21:20] LABS: HCG Qualitative, Serum Negative (Negative)
[2023-08-29 21:21] LABS: Alanine Aminotransferase 31 U/L (12-78); Albumin Level 4.3 g/dl (3.5-5.0); Albumin/Globulin Ratio 1.5 (1.1-1.8); Alkaline Phosphatase 63 U/L (38-126); Anion Gap 13.5 mEq/L (5-15); Aspartate Amino Transferase 30 U/L (14-36); Bilirubin,Total 0.6 mg/dl (0.2-1.3); Blood Urea Nitrogen 8 mg/dl (7-17); Carbon Dioxide 21 mmol/L (22.0-30.0); Creatinine Clearance Estimated 138 mL/min (50-200); Estimated Glomerular Filt Rate 86 ml/min (>60); GFR (African American) 104 ML/MIN (>60); Globulin 2.8 g/dL (1.3-3.2); Total Protein,Serum 7.1 g/dl (6.3-8.2)
[2023-08-29 21:22] LABS: Calcium 9.4 mg/dl (8.4-10.2); Glucose 101 mg/dl (74-100)
[2023-08-29 21:38] VITALS: BP 115/71; PULSE 87; O2SAT 95
[2023-08-29 21:44] VITALS: BP 115/71; PULSE 73; RESP 16; TEMP 36.6; O2SAT 96
== END 2023-08-29 21:49 | disposition home or self-care (01) ==
PROVIDERS: Emergency Provider Student in an Organized Health Care Education/Training Program; PCP Internal Medicine
DX: R51.9 Headache, unspecified (principal); R55 Syncope and collapse; R42 Dizziness and giddiness; F17.210 Nicotine dependence, cigarettes, uncomplicated
CPT/HCPCS: 80053; 84703; 85025; 93005; 96361; 96374; 96375; 99284; J1885; J7120

== ENCOUNTER 2023-09-09 13:29 | Emergency (ER) | payer OTHER, SELFPAY ==
[2023-09-09 13:31] VITALS: BP 135/65; PULSE 75; RESP 16; TEMP 36.8; O2SAT 99; BMI 30.8
--- NOTE | 2023-09-09 13:40 | PC.NURSE ---
Dr. Arambula at [facility] for pt eval
--- NOTE | 2023-09-09 13:49 | ED_ITS ---
Discharge Plan Disposition Patient Disposition: Home, Self-Care Condition: Good Prescriptions Prescriptions: No Action omeprazole 20 mg capsule,delayed release(DR/EC) 20 mg PO DAILY norgestimate-ethinyl estradiol [Sprintec (28)] 0.25-35 mg-mcg tablet 1 tab PO DAILY Qty: 84 3RF ondansetron 4 mg tablet,disintegrating 4 mg PO Q6H PRN (Reason: nausea and vomiting) Qty: 10 0RF sertraline 100 mg tablet 100 mg PO DAILY Patient Comments: TAKE 1 TABLET BY MOUTH ONCE DAILY IN THE MORNING DIRECTED aripiprazole 5 mg tablet 5 mg PO DAILY Patient Comments: TAKE 1 TABLET BY MOUTH ONCE DAILY meloxicam 15 mg tablet 15 mg PO DAILY prednisone 50 mg tablet 50 mg PO DAILY 3 Days Qty: 3 0RF Referrals Follow up/Referrals: Cade Lr [Primary Care Provider] - See instructions Activity Restrictions/Add. Instructions Additional Instructions/Restrictions: You were evaluated in the ER. You are appropriate for discharge at this time. Continue taking your home medications as previously prescribed. Avoid smoking as this will likely worsen your cough and the delay healing. Drink plenty of water. Take Tylenol/ibuprofen if needed for body aches. Make an appointment with your primary care physician for reevaluation in 2 to 3 days. Return to the ER with new, worsening, or otherwise concerning symptoms. Clinical Impressions Clinical Impression: Cough Discharge ED Provider: Estrella Arambula Adult HPI General Chief complaint: Upper Respiratory Infection Stated complaint: SOA, cough Time Seen by Provider: 09/09/23 13:33 Mode of Arrival: Ambulatory Source of Information: Patient Limitations: No Limitations Description of Symptoms (Recalled from ER Triage Doc. by RN): cough for 2 days History of Present Illness HPI narrative: 27-year-old female presents to the ER for concerns of 2 to 3 days of cough. She states a young child that she is around has had similar symptoms for approximately 1 week. She believes she caught what ever the child had. Patient has not had any fevers. She does have mild sore throat and slight congestion, she is not having any chest pain. Patient does not take control, no swelling or pain in the legs, no history of blood clots, no vomiting or diarrhea, no other associated symptoms. Related Data Home Medications Medication Instructions Recorded Confirmed aripiprazole 5 mg tablet 5 mg PO DAILY . 08/07/22 10/30/22 meloxicam 15 mg tablet 15 mg PO DAILY . 08/07/22 10/30/22 sertraline 100 mg tablet 100 mg PO DAILY . 08/07/22 10/30/22 omeprazole 20 mg capsule,delayed 20 mg PO DAILY 10/30/22 10/30/22 release Previous Rx's Medication Instructions Recorded norgestimate 0.25 mg-ethinyl 1 tab PO DAILY #84 tabs 10/30/22 estradiol 35 mcg tablet (Sprintec (28)) ondansetron 4 mg disintegrating 4 mg PO Q6H PRN nausea and 11/21/22 tablet vomiting #10 tabs prednisone 50 mg tablet 50 mg PO DAILY 3 days #3 tabs 07/13/23 Allergies Allergy/AdvReac Type Severity Reaction Status Date / Time latex Allergy Mild Verified 10/30/22 13:54 [facility] Disclaimer: The information contained in this section may have been updated after the patient was seen, as this information can be updated by other users. Medical History Irregular periods/menstrual cycles LLQ pain delivery delivered Surgical History Hx of tubal ligation Hx of section Family History Other Diabetes Heart attack Hypertension Social History Smoking Status: Current every day smoker tobacco type: cigarettes packs per day: 1 second hand exposure: Yes alcohol intake: never counseling provided: none substance use type: denies use current occupational status: other Travel in the last 8 weeks: None household members: significant other housing: house ROS Obtained: Yes All systems reviewed & no additional complaints except as documented Constitutional Constitutional: Denies chills, Denies fever(s), Denies headache(s) and Denies weakness Eyes Eyes: Denies change in vision ENT Ears, Nose, Mouth, and Throat: Denies dizziness, Denies headache(s), Denies nasal congestion and Denies sore throat Cardiovascular Cardiovascular: Denies chest pain, Denies dyspnea and Denies leg edema Respiratory Respiratory: Reports cough and Denies dyspnea Gastrointestinal Gastrointestingal: Denies constipation, diarrhea, nausea or vomiting Genitourinary Female Genitourinary: Denies dysuria Musculoskeletal Musculoskeletal: Denies arthralgias, Denies myalgias, Denies numbness and Denies tingling Integumentary/Breasts Skin/Breast: Denies change in pigmentation Neurologic Neurologic: Denies dizziness, Denies headache(s), Denies numbness, Denies tingling and Denies weakness Physical Exam General General appearance: alert and in no apparent distress Head Head exam: atraumatic and normocephalic Eye Eye exam: Present PERRL and EOMI ENT ENT exam: Present mucous membranes moist and other (Mild erythema of the posterior oropharynx, tonsils normal size, no exudate) Neck Neck exam: Present normal inspection and full ROM; Absent lymphadenopathy Chest Chest inspection: Present symmetric chest wall rise Respiratory Respiratory exam: Present normal lung sounds bilaterally; Absent respiratory distress, wheezes or stridor Cardiovascular Cardiovascular exam: Present regular rate and normal rhythm Abdominal Exam Abdominal exam: Absent distention Extremities Exam Extremities exam: Present full ROM Neurological Exam Neurological exam: Present alert and oriented X3; Absent motor sensory deficit Psychiatric Psychiatric exam: Present normal affect and normal mood Skin Skin exam: Present warm and dry Medical Decision Making Yon Inquiry Pt receiving controlled substance: No Vital Signs: 09/09/23 13:31 Temperature 98.2 F Temperature Source Oral Pulse Rate [Right] 75 Respiratory Rate 16 Blood Pressure [Right Arm] 135/65 Blood Pressure Mean [Right Arm] 88 02 Sat by Pulse Oximetry 99 Oxygen Delivery Method Room Air Medical Decision Narrative: In summary, this 27-year-old female presents to the emergency department today with cough. On initial evaluation patient is hemodynamically stable, afebrile, lungs clear to auscultation bilaterally, mild erythema of the posterior oropharynx but no tonsillomegaly or exudate. Most likely diagnosis is viral syndrome. I also considered possibility of pneumonia, postnasal drip, seasonal allergies. I briefly considered PE but patient has no tachycardia, hypotension, she is oxygenating well, she has no leg swelling, no history of blood clots. PERC negative. Though I considered pneumonia, she is afebrile, no chest pain, only been ill for the last 2 to 3 days, extremely low pretest probability for pneumonia so chest x-ray is not necessary at this time especially in the setting of reassuring pulmonary exam. I do not believe she requires any labs or imaging at this time. Patient and I discussed her current symptoms as well as exposure to other recent illness of similar symptoms. I encouraged her to avoid smoking while she is sick. Also discussed symptomatic management with her. I had her ambulate in the ER. Her heart rate was 84 and SpO2 100% on room air with ambulation. She continues to be stable and appropriate for discharge at this time. Critical Care Critical Care Time Critical Care Time: No
[2023-09-09 14:14] VITALS: BP 135/65; PULSE 91; RESP 18; TEMP 36.7; O2SAT 98
== END 2023-09-09 14:15 | disposition home or self-care (01) ==
LOC: ER 13:58
PROVIDERS: Emergency Provider Emergency Medicine; PCP Pediatrics
DX: R05.9 Cough, unspecified (principal); R07.0 Pain in throat; R09.81 Nasal congestion; F17.210 Nicotine dependence, cigarettes, uncomplicated
CPT/HCPCS: 99282

== ENCOUNTER 2024-01-06 13:14 | Emergency (ER) | payer OTHER, SELFPAY ==
[2024-01-06 14:10] VITALS: BP 117/73; PULSE 84; RESP 20; TEMP 36.8; O2SAT 98; BMI 29.5
[2024-01-06 14:20] LABS: Microscopic, Urine URINE MICROSCOPIC (MICROSCOPIC)
[2024-01-06 14:33] LABS: Appearance,Urine CLEAR (Clear); Bilirubin,Urine Negative (Negative); Blood, Urine Negative (Negative); Color,Urine YELLOW (Yellow); Glucose,Urine (UA) Negative (Negative); Ketones,Urine Negative (Negative); Leukocyte Esterase,Urine Negative (Negative); Nitrate,Urine Negative (Negative); Protein,Urine Negative (Negative); Urobilinogen,Urine 0.2 EU/dl (0.2)
--- NOTE | 2024-01-06 14:33 | EXP.UTC ---
Discharge Plan Disposition Patient Disposition: Home, Self-Care Condition: Good Prescriptions Prescriptions: New methocarbamol 500 mg tablet 500 mg PO TID PRN (Reason: muscle spasm) Qty: 12 0RF lidocaine 4 % adhesive patch,medicated 1 patch topical DAILY PRN (Reason: pain) Qty: 10 0RF Rx Instructions: apply patch and leave on for 12 hours then remove for 12 hours No Action sertraline 100 mg tablet 100 mg PO DAILY Patient Comments: TAKE 1 TABLET BY MOUTH ONCE DAILY IN THE MORNING DIRECTED Referrals Follow up/Referrals: Bernardo Lr [Primary Care Provider] - See instructions Activity Restrictions/Add. Instructions Additional Instructions/Restrictions: *Ibuprofen servando 6 hours with meal as needed for pain/inflammation if you can take it *Not additional anti-inflammatory like motrin, aleve, advil with the above amount of ibuprofen. You can still take Tylenol every 4 hours as needed if you need something else for pain *Ice 20 minutes every 2 hours for the first 48 hours after the initial injury followed by moist heat every 20 minutes 3-4 times a day to affected area *Muscle relaxer every 8 hours as needed for muscle spasms but remember, it WILL cause drowsiness You cannot take it and drive, operate machinery or care for small children. Topical lidocaine patch as prescribed *Keep this area active, no movement leads to more stiffness, However take it easy and avoid heavy lifting pushing or pulling *Follow up with you family doctor if no improvement for further treatment ? Clinical Impressions Clinical Impression: Back pain Instructions Patient Instructions: Lidocaine Transdermal Patch, Methocarbamol, DI for Low Back Pain Print Language Print Language: French Discharge ED Provider: [facility] HPI General Stated complaint: back pain, weakness Mode of Arrival: Ambulatory Source of Information: Patient Limitations: No Limitations Time Seen by Provider: 01/06/24 14:33 Description of Symptoms (Recalled from Triage Doc. by RN): PATIENT C/O RIGHT SIDE/FLANK PAIN THAT STARTED YESTERDAY. NO KNOWN INJURY HEENT Symptoms (Recalled from RN notes): No Resp Symptoms (Recalled from RN notes): No Skin Symptoms (Recalled from RN notes): No MS Symptoms (Recalled from RN notes): Yes Functional Status (Recalled from RN notes): WNL History of Present Illness Provider Complaint: Patient states that she is having pain in her right flank area on her back states that pain does not radiate anywhere unsure if she may have done something to hurt it or not but does not recall doing anything to it States today it was still bothering her so she came in to get it checke Related Data Home Medications ?Medication ?Instructions ?Recorded ?Confirmed sertraline 100 mg tablet 100 mg PO DAILY 08/07/22 01/06/24 Previous Rx's ?Medication ?Instructions ?Recorded lidocaine 4 % topical patch 1 patch topical DAILY PRN pain #10 01/06/24 ea methocarbamol 500 mg tablet 500 mg PO TID PRN muscle spasm #12 01/06/24 tabs Allergies Allergy/AdvReac Type Severity Reaction Status Date / Time latex Allergy Mild Verified 10/30/22 13:54 Worker's Comp Is this a Worker's Comp case?: No [facility] Disclaimer: The information contained in this section may have been updated after the patient was seen, as this information can be updated by other users. Medical History Irregular periods/menstrual cycles LLQ pain delivery delivered Surgical History Hx of tubal ligation Hx of section Family History Other Diabetes Heart attack Hypertension Social History Smoking Status: Current every day smoker tobacco type: cigarettes packs per day: 1 second hand exposure: Yes alcohol intake: never counseling provided: none substance use type: denies use current occupational status: other Travel in the last 8 weeks: None household members: significant other housing: house ROS Obtained: Yes All systems reviewed & no additional complaints except as documented and Yes Systems reviewed as appropriate & no additional complaints except as documented Constitutional Constitutional: Reports system reviewed and no additional complaints, except as documented, Reports as per HPI and Denies fever(s) ENT Ears, Nose, Mouth, and Throat: Reports system reviewed and no additional complaints, except as documented and Reports as per HPI Cardiovascular Cardiovascular: Reports system reviewed and no additional complaints, except as documented and Reports as per HPI Respiratory Respiratory: Reports system reviewed and no additional complaints, except as documented and Reports as per HPI Gastrointestinal Gastrointestingal: Reports system reviewed and no additional complaints, except as documented and as per HPI; Denies abdominal pain, diarrhea, nausea or vomiting Genitourinary Female Genitourinary: Reports system reviewed and no additional complaints, except as documented, Reports as per HPI and Reports flank pain (right ) Physical Exam General General appearance: alert and in no apparent distress ENT ENT exam: Present mucous membranes moist Respiratory Respiratory exam: Present normal lung sounds bilaterally; Absent respiratory distress or wheezes Cardiovascular Cardiovascular exam: Present regular rate, normal rhythm and normal heart sounds Abdominal Exam Abdominal exam: Present soft and normal bowel sounds; Absent distention or tenderness Back Exam Back exam: Present tenderness Back 1 view image: 1. reports achy like pain that is worse with movement Denies known injury, denies loss of control of bowel or bladder Neurological Exam Neurological exam: Present alert, oriented X3 and normal gait Medical Decision Making Medical Records Screening: Per USPSTF and CDC recommendations, given the prevalence of disease in our region, it is our hospital?s policy to screen for HIV and viral Hepatitis for all patients aged 18 and over and those with ongoing risk factors. Yon Inquiry Pt receiving controlled substance: No Yon was queried for this patient: No Vital Signs: 01/06/24 14:10 Temperature 98.2 F Temperature Source Oral Pulse Rate [Left Brachial] 84 Respiratory Rate 20 Blood Pressure [Left Arm] 117/73 Blood Pressure Mean [Left Arm] 87 Blood Pressure Source [Left Arm] Automatic Cuff Blood Pressure Position [Left Arm] Sitting 02 Sat by Pulse Oximetry 98 Oxygen Delivery Method Room Air Lab Data Lab results reviewed: Yes I reviewed the patient's lab results. Orders (Tests/Meds): ORDERS Category Date Time Status Urinalysis and Microscopic Stat Lab 01/06/24 13:10 Received
[2024-01-06 14:49] VITALS: BP 117/73; PULSE 84; RESP 20; TEMP 36.8; O2SAT 98
[2024-01-06 15:08] LABS: Bacteria,Urine Trace /lpf
== END 2024-01-06 14:53 | disposition home or self-care (01) ==
PROVIDERS: Emergency Provider Nurse Practitioner; PCP Internal Medicine
DX: M54.9 Dorsalgia, unspecified (principal); R53.1 Weakness
CPT/HCPCS: 81001; 99212; G0381

== ENCOUNTER 2024-02-09 16:34 | Emergency (ER) | payer OTHER, SELFPAY ==
[2024-02-09] VITALS (7 sets, daily range): BP systolic 98–147; BP diastolic 53–71; PULSE 53–75; RESP 18; TEMP 36.5–36.6; O2SAT 96–100; BMI 30.9
--- NOTE | 2024-02-09 16:38 | ED_ITS ---
<Statement entered by Brigette Stevens DO - 02/09/24 20:13> I was consulted by the ANNE-MARIE, and we discussed the complexity of the problems being addressed. I approved the treatment and management plan for this patient's care in the emergency department, thus performing a substantive portion of the medical decision making. Brigette Stevens DO Discharge Plan Prescriptions Prescriptions: No Action sertraline 100 mg tablet 100 mg PO DAILY Patient Comments: TAKE 1 TABLET BY MOUTH ONCE DAILY IN THE MORNING DIRECTED methocarbamol 500 mg tablet 500 mg PO TID PRN (Reason: muscle spasm) Qty: 12 0RF lidocaine 4 % adhesive patch,medicated 1 patch topical DAILY PRN (Reason: pain) Qty: 10 0RF Rx Instructions: apply patch and leave on for 12 hours then remove for 12 hours Referrals Follow up/Referrals: Cade Lr [Referring] - See instructions Activity Restrictions/Add. Instructions Additional Instructions/Restrictions: Follow-up with your PCP for referral to a headache specialist. Return to the ER for any worsening signs or symptoms as needed. Clinical Impressions Clinical Impression: Headache Qualifiers: Headache type: unspecified Headache chronicity pattern: episodic headache I ntractability: not intractable Qualified Code(s): R51.9 - Headache, unspecified Instructions Patient Instructions: DI for Headache Print Language Print Language: Tristanian Discharge ED Provider: Brigette Stevens General Adult HPI General Chief complaint: PAIN Stated complaint: migraine loss of appitite dizziness Time Seen by Provider: 02/09/24 16:37 History of Present Illness HPI narrative: Patient presents for evaluation of a headache. Patient states that she has had daily headache for the last 2 to 3 months. She has also had headaches off and on over the last 2 years. She has never seen a headache specialist. Patient reports that she has had loss of appetite due to nausea but no vomiting diarrhea chest pain shortness of breath fever chills hemoptysis hematochezia melena visual changes or smell changes seizures. She has not tried anything [id number] today. Related Data Home Medications ?Medication ?Instructions ?Recorded ?Confirmed sertraline 100 mg tablet 100 mg PO DAILY 08/07/22 01/06/24 Previous Rx's ?Medication ?Instructions ?Recorded lidocaine 4 % topical patch 1 patch topical DAILY PRN pain #10 01/06/24 ea methocarbamol 500 mg tablet 500 mg PO TID PRN muscle spasm #12 01/06/24 tabs Allergies Allergy/AdvReac Type Severity Reaction Status Date / Time latex Allergy Mild Verified 10/30/22 13:54 [facility] Disclaimer: The information contained in this section may have been updated after the patient was seen, as this information can be updated by other users. Medical History Irregular periods/menstrual cycles LLQ pain delivery delivered Surgical History Hx of tubal ligation Hx of section Family History Other Diabetes Heart attack Hypertension Social History Smoking Status: Current every day smoker tobacco type: cigarettes packs per day: 1 second hand exposure: Yes alcohol intake: never counseling provided: none substance use type: denies use current occupational status: other household members: significant other housing: house Other Medical History Have you received the Flu Vaccine for this season: No Have you received the Pneumonia Vaccine: No ROS Obtained: Yes Systems reviewed as appropriate & no additional complaints except as documented Physical Exam General General appearance: alert and in no apparent distress Respiratory Respiratory exam: Present normal lung sounds bilaterally Cardiovascular Cardiovascular exam: Present regular rate Neurological Exam Neurological exam: Present alert and oriented X3 Medical Decision Making Medical Records Medical records reviewed: Yes I reviewed the patient's medical records. Screening: Per USPSTF and CDC recommendations, given the prevalence of disease in our region, it is our hospital?s policy to screen for HIV and viral Hepatitis for all patients aged 18 and over and those with ongoing risk factors. Yon Inquiry Pt receiving controlled substance: No Vital Signs: 02/09/24 16:46 02/09/24 17:01 02/09/24 17:12 Temperature 97.7 F Temperature Source Oral Pulse Rate 73 70 Pulse Rate [Right Radial] 75 Respiratory Rate 18 Blood Pressure 111/62 108/66 L Blood Pressure [Right Arm] 147/71 H Blood Pressure Mean [Right Arm] 96 02 Sat by Pulse Oximetry 100 96 98 Oxygen Delivery Method Room Air Room Air 02/09/24 17:15 02/09/24 17:30 02/09/24 17:45 Temperature Temperature Source Pulse Rate 70 67 53 L Pulse Rate [Right Radial] Respiratory Rate Blood Pressure 98/67 L 104/53 L 100/60 L Blood Pressure [Right Arm] Blood Pressure Mean [Right Arm] 02 Sat by Pulse Oximetry 96 98 98 Oxygen Delivery Method Room Air Room Air Room Air 02/09/24 19:08 Temperature 98 F Temperature Source Pulse Rate 69 Pulse Rate [Right Radial] Respiratory Rate 18 Blood Pressure 113/66 Blood Pressure [Right Arm] Blood Pressure Mean [Right Arm] 02 Sat by Pulse Oximetry Oxygen Delivery Method Lab Data Lab results reviewed: Yes I reviewed the patient's lab results. Lab Results 02/09/24 16:45: WBC 8.9, RBC 5.11, Hgb 15.4, Hct 45.3, MCV 88.7, MCH 30.1, MCHC 33.9, RDW 13.1, Plt Count 340, MPV 8.0, Neut % (Auto) 63.7, Lymph % (Auto) 31.4, [place] % (Auto) 3.2, Eos % (Auto) 0.6, Baso % (Auto) 1.0, Neut # (Auto) 5.7, Lymph # (Auto) 2.8, [place] # (Auto) 0.3, Eos # (Auto) 0.1, Baso # (Auto) 0.1, Sodium 139, Potassium 3.7, Chloride 106, Carbon Dioxide 23, Anion Gap 13.7, BUN 5 L, Creatinine 0.70, Estimated Creat Clear 150, Estimated GFR 100, Est GFR ( Amer) 121, Glucose 94, Calcium 9.6, Magnesium 2.1, Total Bilirubin 0.7, AST 24, ALT 21, Alkaline Phosphatase 63, Total Protein 7.6, Albumin 4.4, Globulin 3.2, Albumin/Globulin Ratio 1.4, Serum HCG, Qual Negative, HIV 1&2 Antibody Rapid Nonreactive 02/09/24 : Urine Color Yellow, Urine Appearance Clear, Urine pH 6.0, Ur Specific [place] 1.010, Urine Protein Negative, Urine Glucose (UA) Negative, Urine Ketones Negative, Urine Blood Negative, Urine Nitrate Negative, Urine Bilirubin Negative, Urine Urobilinogen 0.2, Ur Leukocyte Esterase Negative, Urine RBC None, Urine WBC 10-20, Ur Squamous Epith Cells 20-50, Urine Bacteria 3+ 02/09/24 16:45 02/09/24 16:45 Orders (Tests/Meds): ED MEDICATIONS Discontinued Medications Generic Name Dose Route Start Last Admin Trade Name Jessica PRN Reason Stop Dose Admin Acetaminophen 1,000 mg 02/09/24 16:50 02/09/24 17:03 Acetaminophen 1,000mg/100ml Vial IV 02/09/24 16:51 1,000 mg ONCE ONE Administration Dexamethasone Sodium Phosphate 10 mg 02/09/24 16:50 02/09/24 17:02 Dexamethasone 4mg/Ml 5ml Mdv IV 02/09/24 16:51 10 mg ONCE ONE Administration Diphenhydramine HCl 50 mg 02/09/24 16:50 02/09/24 17:02 Diphenhydramine 50mg/Ml Vial IV 02/09/24 16:51 50 mg ONCE ONE Administration Ketorolac Tromethamine 15 mg 02/09/24 16:50 02/09/24 17:02 Ketorolac 30mg/Ml Vial IV 02/09/24 16:51 15 mg ONCE ONE Administration Methocarbamol 500 mg 02/09/24 16:50 02/09/24 17:03 Methocarbamol 500mg Tablet PO 02/09/24 16:51 500 mg ONCE ONE Administration Prochlorperazine Edisylate 10 mg 02/09/24 16:50 02/09/24 17:02 Prochlorperazine 10mg/2ml Vial IV 02/09/24 16:51 10 mg ONCE ONE Administration ORDERS Category Date Time Status CT head/brain wo con Stat Cat Scan 02/09/24 16:50 Completed CBC w/Auto Diff [Complete Blood Count Auto Diff] Stat Lab 02/09/24 16:45 Completed CMP [Comprehensive Metabolic Panel] Stat Lab 02/09/24 16:45 Completed HCG Qualitative, Serum Stat Lab 02/09/24 16:45 Completed HIV (1&2) Antibody Rapid Stat Lab 02/09/24 16:45 Completed Hep C Ab with Reflex to RNA Stat Lab 02/09/24 16:45 Received Magnesium Stat Lab 02/09/24 16:45 Completed UA [Urinalysis and Microscopic] Stat Lab 02/09/24 Completed Urine Culture Stat Micro 02/09/24 Received Medical Decision Narrative: In summary patient is a 28-year-old female who presents to the emergency department for evaluation of migraine headache. Patient is hemodynamically stable and afebrile on arrival. Physical exam is remarkable for subjective headache with no focal neurologic findings including [place] Coma Score 15 awake alert and oriented person place and circumstance no posterior neck tenderness no occipital tenderness pupils equal round reactive to light, normal oropharynx normal breath sounds normal heart sounds. Differential diagnosis includes migraine headache versus complex headache etc. Initial workup will be conducted with CT scan of the head hematologic labs urinalysis and . Initial interventions include migraine cocktail. Initial workup reviewed by me shows her hematologic labs are nonactionable my informed interpretation of CT scan head without contrast does not show any acute processes.. Upon repeat evaluation patient reports complete resolution of her headache initial intervention. Given this patient is appropriate for discharge with referral back to her PCP for referral for headache specialist. Critical Care Critical Care Time Critical Care Time: No
--- NOTE | 2024-02-09 16:50 | CT_ITS ---
PROCEDURE INFORMATION: Exam: CT Head Without Contrast Exam date and time: 02/09/2024 6:39 PM Age: 28 years old Clinical indication: Other: Headache; Additional info: Persistent headache TECHNIQUE: Imaging protocol: Computed tomography of the head without contrast. Radiation optimization: All CT scans at this facility use at least one of these dose optimization techniques: automated exposure control; mA and/or kV adjustment per patient size (includes targeted exams where dose is matched to clinical indication); or iterative reconstruction. COMPARISON: No relevant prior studies available. FINDINGS: Brain: Normal. No hemorrhage. Unremarkable white matter. No mass effect. Cerebral ventricles: No ventriculomegaly. Paranasal sinuses: Visualized sinuses are unremarkable. No fluid levels. Mastoid air cells: Visualized mastoid air cells are well aerated. Bones: Unremarkable. No acute fracture. Soft tissues: Unremarkable. IMPRESSION: No acute intracranial abnormality.
[2024-02-09] MEDS: KETOROLAC 30MG/ML VIAL 15 MG IV (17:02)
[2024-02-09] MEDS: diphenhydrAMINE 50MG/ML VIAL 50 MG IV (17:02)
[2024-02-09] MEDS: PROCHLORPERAZINE 10MG/2ML VIAL 10 MG IV (17:02)
[2024-02-09] MEDS: DEXAMETHASONE 4MG/ML 5ML MDV 10 MG IV (17:02)
[2024-02-09] MEDS: METHOCARBAMOL 500MG TABLET 500 MG PO (17:03)
[2024-02-09] MEDS: ACETAMINOPHEN 1,000MG/100ML VIAL 1000 MG IV (17:03)
[2024-02-09 17:08] LABS: Microscopic, Urine URINE MICROSCOPIC (MICROSCOPIC)
[2024-02-09 17:08] LABS: Basophils # 0.1 K/mm3 (0-0.2); Eosinophils # 0.1 K/mm3 (0.0-0.4); Eosinophils % 0.6 % (0.1-12.0); Hematocrit 45.3 % (37.0-47.0); Hemoglobin 15.4 g/dL (12.2-16.2); Lymphocytes # 2.8 K/mm3 (0.7-4.5); Lymphocytes % 31.4 % (10-50); Mean Corpuscular HGB Conc 33.9 g/dL (31.8-35.4); Mean Corpuscular Hemoglobin 30.1 pg (27.0-31.2); Mean Corpuscular Volume 88.7 fl (81-99); Monocytes # 0.3 K/mm3 (0.1-1.0); Monocytes % 3.2 % (1.7-9.3); Neutrophils # 5.7 K/mm3 (1.8-7.8); Neutrophils % 63.7 % (37.0-80.0); Platelet Count 340 K/mm3 (142-424); Red Blood Count 5.11 M/mm3 (4.20-5.40); Red Cell Distribution Width 13.1 % (11.5-17.5); White Blood Count 8.9 K/mm3 (4.8-10.8)
[2024-02-09 17:14] LABS: Appearance,Urine CLEAR (Clear); Bilirubin,Urine Negative (Negative); Blood, Urine Negative (Negative); Color,Urine YELLOW (Yellow); Glucose,Urine (UA) Negative (Negative); Ketones,Urine Negative (Negative); Leukocyte Esterase,Urine Negative (Negative); Nitrate,Urine Negative (Negative); Protein,Urine Negative (Negative); Urobilinogen,Urine 0.2 EU/dl (0.2)
[2024-02-09 17:30] LABS: Albumin Level 4.4 g/dl (3.5-5.0); Chloride 106 mmol/L (98-107); Potassium 3.7 mmoL/L (3.5-5.1); Sodium 139 mmol/L (136-145)
[2024-02-09 17:33] LABS: Alanine Aminotransferase 21 U/L (12-78); Albumin/Globulin Ratio 1.4 (1.1-1.8); Alkaline Phosphatase 63 U/L (38-126); Anion Gap 13.7 mEq/L (5-15); Aspartate Amino Transferase 24 U/L (14-36); Bilirubin,Total 0.7 mg/dl (0.2-1.3); Blood Urea Nitrogen 5 mg/dl (7-17); Calcium 9.6 mg/dl (8.4-10.2); Carbon Dioxide 23 mmol/L (22.0-30.0); Creatinine Clearance Estimated 150 mL/min (50-200); Estimated Glomerular Filt Rate 100 ml/min (>60); GFR (African American) 121 ML/MIN (>60); Globulin 3.2 g/dL (1.3-3.2); Glucose 94 mg/dl (74-100); Magnesium 2.1 mg/dl (1.6-2.3); Total Protein,Serum 7.6 g/dl (6.3-8.2)
[2024-02-09 17:44] LABS: HIV (1&2) Antibody Rapid NONREACTIVE (NONREACTIVE)
[2024-02-09 18:10] LABS: HCG Qualitative, Serum Negative (Negative)
[2024-02-09 20:01] LABS: Bacteria,Urine 3+ /lpf; Squamous Epithelial Cell,Urine 20-50 #/hpf (0-5)
[2024-02-10 07:27] LABS: HCV Ab Non Reactive (Non Reactive)
== END 2024-02-09 19:12 | disposition home or self-care (01) ==
PROVIDERS: Physician Assistant; Emergency Provider Emergency Medicine; PCP Internal Medicine
DX: R51.9 Headache, unspecified (principal); R11.0 Nausea; R63.8 Other symptoms and signs concerning food and fluid intake
CPT/HCPCS: 70450; 80053; 81001; 83735; 84703; 85025; 86803; 87086; 87389; 96374; 96375; 99284; J0131; J0780; J1100; J1200; J1885

== ENCOUNTER 2024-05-24 22:52 | Emergency (ER) | payer OTHER, SELFPAY ==
[2024-05-24 22:58] VITALS: BP 104/63; PULSE 80; RESP 18; TEMP 36.8; O2SAT 99; BMI 26.5
[2024-05-24 23:09] LABS: Coronavirus 19, PCR Not Detected (NotDetected); Influenza A, PCR Not Detected (NotDetected); Influenza B, PCR Not Detected (NotDetected)
[2024-05-24 23:11] VITALS: BP 99/75; PULSE 81; O2SAT 96
--- NOTE | 2024-05-24 23:11 | XR_ITS ---
PROCEDURE INFORMATION: Exam: XR Chest Exam date and time: 05/24/2024 11:34 PM Age: 28 years old Clinical indication: Cough; Additional info: Cough 2wks TECHNIQUE: Imaging protocol: Radiologic exam of the chest. Views: 2 views. Total images: 2 COMPARISON: CT ANGIO CHEST PE PROTOCOL 11/04/2022 9:44 PM FINDINGS: Lungs: Unremarkable. No consolidation. No pulmonary vascular congestion or edema. Pleural spaces: Unremarkable. No pleural effusion. No pneumothorax. Heart/Mediastinum: Unremarkable. No cardiomegaly. No mediastinal widening or hilar enlargement. Bones/joints: Unremarkable. IMPRESSION: No radiographically acute cardiopulmonary process.
--- NOTE | 2024-05-24 23:16 | HMH.EDGENADL ---
Discharge Plan Disposition Patient Disposition: Home, Self-Care Condition: Good Prescriptions Prescriptions: New guaifenesin 400 mg tablet 400 mg PO TID PRN (Reason: cough) Qty: 9 0RF No Action sertraline 100 mg tablet 100 mg PO DAILY Patient Comments: TAKE 1 TABLET BY MOUTH ONCE DAILY IN THE MORNING DIRECTED methocarbamol 500 mg tablet 500 mg PO TID PRN (Reason: muscle spasm) Qty: 12 0RF lidocaine 4 % adhesive patch,medicated 1 patch topical DAILY PRN (Reason: pain) Qty: 10 0RF Rx Instructions: apply patch and leave on for 12 hours then remove for 12 hours Referrals Follow up/Referrals: Bernardo Lr [Primary Care Provider] - See instructions Activity Restrictions/Add. Instructions Additional Instructions/Restrictions: You were evaluated in the ER and are appropriate for discharge at this time. Take the prescribed guaifenesin for the next few days as directed. Drink plenty of fluids including water, Gatorade, Pedialyte. Stop smoking to help your lungs heal and to reduce the risk of potential future infections. Please make an appointment with your primary care doctor for reevaluation in 2 to 3 days. Return to the ER with new, worsening, or otherwise concerning symptoms. Clinical Impressions Clinical Impression: Cough, Chills Print Language Print Language: Salvadorean Discharge ED Provider: Estrella Arambula Adult HPI General Chief complaint: Upper Respiratory Infection Stated complaint: SOA, chills Time Seen by Provider: 05/24/24 22:59 Mode of Arrival: Ambulatory Source of Information: Patient Description of Symptoms (Recalled from ER Triage Doc. by RN): Pt presents with c/o intermittent productive cough, chills, bodyaches x several weeks History of Present Illness HPI narrative: 28-year-old female currently only on trazodone nightly for sleep issues presents to the ER for 2 to 3 weeks of cough, chills, body aches, shortness of breath. Patient reports a few weeks ago she had a cold which she reports she never got checked out but after that she developed a persistent cough. She states it had been productive but more recently it has been dry and raspy. She states she gets occasional shortness of breath with associated hot and cold flashes but reports no known fever. She states she has had diffuse bodyaches, occasional intermittent chest pains as well. She states nothing specific seems to provoke or improve her symptoms. She states she came in for evaluation tonight because she was having symptoms at her dad's house a few hours ago so she thought she should be evaluated. She is not currently on control, no history of blood clot, no swelling in the legs, she has not had chest pain tonight, she denies any headache, vision changes, numbness, tingling, weakness, she states occasionally with her sensation of shortness of breath she feels lightheaded but does not actively have those symptoms at this time. She denies any abdominal symptoms, no nausea vomiting or diarrhea, no dysuria or hematuria. She does report occasional sore throat but does not actively have one at this time. Patient does report she has a previously known heart murmur since childhood. Patient does smoke but denies alcohol and illicit drugs. Patient states she has been worrying significantly monitor symptoms. Related Data Home Medications ?Medication ?Instructions ?Recorded ?Confirmed sertraline 100 mg tablet 100 mg PO DAILY 08/07/22 01/06/24 Previous Rx's ?Medication ?Instructions ?Recorded lidocaine 4 % topical patch 1 patch topical DAILY PRN pain #10 01/06/24 ea methocarbamol 500 mg tablet 500 mg PO TID PRN muscle spasm #12 01/06/24 tabs guaifenesin 400 mg tablet 400 mg PO TID PRN cough #9 tabs 05/25/24 Allergies Allergy/AdvReac Type Severity Reaction Status Date / Time latex Allergy Mild Verified 10/30/22 13:54 [facility] Disclaimer: The information contained in this section may have been updated after the patient was seen, as this information can be updated by other users. Medical History Irregular periods/menstrual cycles LLQ pain delivery delivered Surgical History Hx of tubal ligation Hx of section Family History Other Diabetes Heart attack Hypertension Social History (Updated 02/09/24 @ 20:13 by SOM Laguna) Smoking Status: Unknown if ever smoked second hand exposure: Yes alcohol intake: never counseling provided: none substance use type: denies use current occupational status: other Travel in the last 8 weeks: None household members: significant other housing: house Have you lived/traveled outside [place] in past 30 days?: No Contact w/someone who lives/traveled outside [place] past 30 days?: No Exposure to someone with infectious disease in past 14 days?: No Do you have a fever (greater than 100.4 F or 38 C)?: No Have you tested positive for COVID-19: No Exposed to someone with COVID-19 in past 14 days?: No Do you have a sore throat?: No Do you have a cough?: No Do you have any weakness?: No Do you have any diarrhea?: No Are you experiencing any unusual bleeding?: No Do you have any muscle aches/pain?: No Do you have any abdominal pain?: No Are you experiencing loss of taste or smell?: No Other Medical History Have you received the Flu Vaccine for this season: No Have you received the Pneumonia Vaccine: No ROS Obtained: Yes Systems reviewed as appropriate & no additional complaints except as documented per HPI Physical Exam General General appearance: alert, in no apparent distress and anxious Comment: Patient appears anxious but otherwise well Head Head exam: atraumatic and normocephalic Eye Eye exam: Present PERRL and EOMI ENT ENT exam: Present normal oropharynx and mucous membranes moist Neck Neck exam: Present normal inspection and full ROM Chest Chest inspection: Present symmetric chest wall rise Respiratory Respiratory exam: Present normal lung sounds bilaterally and other (Moving good air throughout saturating 99% on room air.); Absent respiratory distress, wheezes or stridor Cardiovascular Cardiovascular exam: Present regular rate, normal rhythm and systolic murmur (mild) Abdominal Exam Abdominal exam: Present soft; Absent distention or tenderness Extremities Exam Extremities exam: Present full ROM; Absent edema, joint swelling or calf tenderness Neurological Exam Neurological exam: Present alert, oriented X3 and normal gait; Absent motor sensory deficit Psychiatric Psychiatric exam: Present normal affect and anxious Skin Skin exam: Present warm and dry Medical Decision Making Medical Records Medical records reviewed: Yes I reviewed the patient's medical records. Screening: Per USPSTF and CDC recommendations, given the prevalence of disease in our region, it is our hospital?s policy to screen for HIV and viral Hepatitis for all patients aged 18 and over and those with ongoing risk factors. MR Comment: Patient has previously been evaluated in our system. And in December 2023 she had back pain and was seen in [facility] and prescribed methocarbamol and lidocaine patches, in January 2024 she had reassuring workup for headache and was able to be discharged. Yon Inquiry Pt receiving controlled substance: No Vital Signs: 05/24/24 22:58 05/24/24 23:11 Temperature 98.3 F Temperature Source Oral Pulse Rate 81 Pulse Rate [Right] 80 Respiratory Rate 18 Blood Pressure 99/75 L Blood Pressure [Right Arm] 104/63 L Blood Pressure Mean [Right Arm] 76 02 Sat by Pulse Oximetry 99 96 Oxygen Delivery Method Room Air Lab Data Lab Results 05/24/24 22:57: SARS-CoV-2 (PCR) Not detected, Influenza A Untype (PCR) Not detected, Influenza Type B (PCR) Not detected 05/24/24 23:15: WBC 10.6, RBC 5.08, Hgb 15.3, Hct 44.6, MCV 87.8, MCH 30.1, MCHC 34.3, RDW 12.4, Plt Count 408, MPV 10.6 H, Neut % (Auto) 48.6, Lymph % (Auto) 44.5, [place] % (Auto) 4.7, Eos % (Auto) 0.9, Baso % (Auto) 0.8, Neut # (Auto) 5.1, Lymph # (Auto) 4.7 H, [place] # (Auto) 0.5, Eos # (Auto) 0.1, Baso # (Auto) 0.1, D-Dimer 0.42, Sodium 140, Potassium 4.0, Chloride 108 H, Carbon Dioxide 20 L, Anion Gap 16.0 H, BUN 12, Creatinine 0.70, Estimated Creat Clear 129, Estimated GFR 100, Est GFR ( Amer) 121, Glucose 86, Calcium 9.6, Total Bilirubin 0.4, AST 23, ALT 25, Alkaline Phosphatase 62, Troponin I < 0.01, Total Protein 7.6, Albumin 5.0, Globulin 2.6, Albumin/Globulin Ratio 1.9 H, Serum HCG, Qual Negative 05/24/24 23:15 05/24/24 23:15 Orders (Tests/Meds): ED MEDICATIONS Generic Name Dose Route Start Last Admin Trade Name Freq PRN Reason Stop Dose Admin Lactated Ringer's 1,000 mls @ 999 mls/hr 05/24/24 23:44 05/24/24 23:48 Lactated Ringer's 1000 Ml Bag IV 05/25/24 00:44 999 mls/hr .Q1H1M ONE Administration ORDERS Category Date Time Status CXR 2 view (NOT portable) [XR chest 2V] Stat Exams 05/24/24 23:11 Taken CBC w/Auto Diff [Complete Blood Count Auto Diff] Stat Lab 05/24/24 23:15 Completed CMP [Comprehensive Metabolic Panel] Stat Lab 05/24/24 23:15 Completed D-Dimer Stat Lab 05/24/24 23:15 Completed HCG Qualitative, Serum Stat Lab 05/24/24 23:15 Completed Rapid PCR Covid and Flu A/B Stat Lab 05/24/24 22:57 Completed Trop I [Troponin I] Stat Lab 05/24/24 23:15 Completed Troponin I Q3H Lab 05/25/24 02:15 Ordered Troponin I Q3H Lab 05/25/24 05:15 Ordered Medical Decision Narrative: In summary, this 28-year-old female with comorbidities described in the HPI presents to the emergency department today with cough, body aches, intermittent shortness of breath. Social determinants of health that likely contribute to her current presentation include smoking which could be impacting her respiratory status. On initial evaluation patient is hemodynamically stable, afebrile, lungs clear bilaterally with good air movement throughout and no adventitious sounds, posterior oropharynx normal, patient has no lymphadenopathy, she does have a faint heart murmur appreciated during the systolic phase which she reports having since childhood, no peripheral edema, leg swelling, calf tenderness, GCS 15, patient is mildly anxious but otherwise well-appearing, remainder of exam benign. Differential diagnosis includes but is not limited to viral syndrome, postviral cough, pneumonia, pneumothorax, I considered atypical presentation of ACS, I have lower suspicion for PE but also consider this and D-dimer was ordered. Based on these concerns, I ordered cardiac workup, serum labs, chest x-ray. ECG personally interpreted demonstrates normal sinus rhythm, rate 75, normal axis, normal MO and QTc, no STEMI. Patient is receiving IV fluids. Labs personally reviewed demonstrate no leukocytosis or anemia, platelets normal, D-dimer negative at 0.42, no CTA PE indicated, CMP nonactionable, initial troponin undetectably low less than 0.01, given patient's duration of symptoms I do not believe serial troponins are indicated. She also has no active chest pain now or earlier. test negative. COVID and flu negative. Chest x-ray personally interpreted does not demonstrate any acute intrathoracic abnormality, no lobar infiltrate, no pleural effusion, see radiology read for final interpretation On reassessment patient continues to be stable and well-appearing. I believe she is appropriate for discharge at this time. I prescribed guaifenesin to help with cough. Patient was given instructions on symptomatic monitoring and management, follow up instructions, and return precautions for the emergency department. Patient indicated understanding and was discharged in stable condition. Critical Care Critical Care Time Critical Care Time: No
--- NOTE | 2024-05-24 23:21 | ECG_ITS ---
APPROVED REPORT Exam: Resting ECG HR:75 bpm ECG Measurements Heart Rate 75 AXES NV 168 P 62 QRSd 116 QRS 46 QT 393 T 55 QTc 422 Conclusion SINUS RHYTHM MODERATE INTRAVENTRICULAR CONDUCTION DELAY [110+ ms QRS DURATION] No STEMI Electronically signed by : ЕКАТЕРИНА HODGSON, 05/25/2024 04:53:43
--- NOTE | 2024-05-24 23:32 | PC.NURSE ---
Assisted Pt to the bathroom to void. - Jacklyn Yang, SRNA
[2024-05-24 23:35] LABS: Basophils # 0.1 K/mm3 (0-0.2); Basophils % 0.8 % (0.1-2.0); Eosinophils # 0.1 K/mm3 (0.0-0.4); Eosinophils % 0.9 % (0.1-12.0); Hematocrit 44.6 % (37.0-47.0); Hemoglobin 15.3 g/dL (12.2-16.2); Lymphocytes # 4.7 K/mm3 (0.7-4.5); Lymphocytes % 44.5 % (10-50); Mean Corpuscular HGB Conc 34.3 g/dL (31.8-35.4); Mean Corpuscular Hemoglobin 30.1 pg (27.0-31.2); Mean Corpuscular Volume 87.8 fl (81-99); Mean Platelet Volume 10.6 fl (7.4-10.4); Monocytes # 0.5 K/mm3 (0.1-1.0); Monocytes % 4.7 % (1.7-9.3); Neutrophils # 5.1 K/mm3 (1.8-7.8); Neutrophils % 48.6 % (37.0-80.0); Platelet Count 408 K/mm3 (142-424); Red Blood Count 5.08 M/mm3 (4.20-5.40); Red Cell Distribution Width 12.4 % (11.5-17.5); White Blood Count 10.6 K/mm3 (4.8-10.8)
[2024-05-24 23:40] LABS: HCG Qualitative, Serum Negative (Negative)
[2024-05-24 23:41] LABS: Alanine Aminotransferase 25 U/L (12-78); Albumin/Globulin Ratio 1.9 (1.1-1.8); Alkaline Phosphatase 62 U/L (38-126); Aspartate Amino Transferase 23 U/L (14-36); Bilirubin,Total 0.4 mg/dl (0.2-1.3); Blood Urea Nitrogen 12 mg/dl (7-17); Calcium 9.6 mg/dl (8.4-10.2); Carbon Dioxide 20 mmol/L (22.0-30.0); Chloride 108 mmol/L (98-107); Creatinine Clearance Estimated 129 mL/min (50-200); Estimated Glomerular Filt Rate 100 ml/min (>60); GFR (African American) 121 ML/MIN (>60); Globulin 2.6 g/dL (1.3-3.2); Glucose 86 mg/dl (74-100); Sodium 140 mmol/L (136-145); Total Protein,Serum 7.6 g/dl (6.3-8.2)
[2024-05-24 23:45] LABS: D-Dimer 0.42 ug/mL (0.0-0.5)
[2024-05-24] MEDS: LACTATED RINGERS 1000ML 1,000 ML 999 ML IV (23:48)
[2024-05-24 23:57] LABS: Troponin I < 0.01 ng/ml (0.00-0.034)
--- NOTE | 2024-05-25 00:31 | PC.NURSE ---
provider at the bedside.
[2024-05-25 00:39] VITALS: BP 103/66; PULSE 60; RESP 16; TEMP 36.7; O2SAT 100
== END 2024-05-25 00:40 | disposition home or self-care (01) ==
PROVIDERS: Emergency Provider Emergency Medicine; PCP Internal Medicine
DX: R05.9 Cough, unspecified (principal); R68.83 Chills (without fever); M79.10 Myalgia, unspecified site; R06.02 Shortness of breath; Z72.0 Tobacco use
CPT/HCPCS: 71046; 80053; 84484; 84703; 85025; 85378; 87636; 93005; 96360; 99284; J7120

== ENCOUNTER 2024-07-07 22:24 | Emergency (ER) | payer OTHER, SELFPAY ==
[2024-07-07 22:35] VITALS: BP 116/64; PULSE 73; RESP 18; TEMP 36.6; O2SAT 99; BMI 29.4
--- NOTE | 2024-07-07 23:21 | XR_ITS ---
PROCEDURE INFORMATION: Exam: XR Left Wrist Exam date and time: 07/07/2024 11:21 PM Age: 28 years old Clinical indication: Pain; Wrist; Left; Additional info: Distal radius pain TECHNIQUE: Imaging protocol: Radiologic exam of the left wrist. Views: 1 or 2 views. COMPARISON: CR XR WRIST LT MIN 3V 03/11/2022 9:11 PM FINDINGS: Bones/joints: Normal. Soft tissues: Normal. IMPRESSION: No acute findings.
--- NOTE | 2024-07-07 23:30 | HMH.EDGENADL ---
Discharge Plan Disposition Patient Disposition: Home, Self-Care Prescriptions Prescriptions: No Action guaifenesin 400 mg tablet 400 mg PO TID PRN (Reason: cough) Qty: 9 0RF sertraline 100 mg tablet 100 mg PO DAILY Patient Comments: TAKE 1 TABLET BY MOUTH ONCE DAILY IN THE MORNING DIRECTED methocarbamol 500 mg tablet 500 mg PO TID PRN (Reason: muscle spasm) Qty: 12 0RF lidocaine 4 % adhesive patch,medicated 1 patch topical DAILY PRN (Reason: pain) Qty: 10 0RF Rx Instructions: apply patch and leave on for 12 hours then remove for 12 hours Referrals Follow up/Referrals: Provider,Referral, MD [Primary Care Provider] - See instructions Activity Restrictions/Add. Instructions Additional Instructions/Restrictions: Please follow-up with your primary care provider. Please return to the emergency department if you develop any new or worsening symptoms or become concerned for your health. Clinical Impressions Clinical Impression: Acute pain of left wrist Print Language Print Language: Hebrew Discharge ED Provider: Ajay Jesus Adult HPI General Chief complaint: PAIN Stated complaint: AO 07-07 hit left wrist area with stick Time Seen by Provider: 07/07/24 23:06 Mode of Arrival: Ambulatory Source of Information: Patient Description of Symptoms (Recalled from ER Triage Doc. by RN): Pt states she went to hit a spider with a stick and accidently hit her left wrist. Pt states she is having pain to her wrist, rates pain as a 9/10 History of Present Illness HPI narrative: 20-year-old female with no past presents for left wrist pain. She struck her left wrist with a stick while trying to kill a spider. Bruising over the left wrist and is complaining of significant pain with range of motion. Denies any other injuries. Reports she is currently on her period and is not concerned about a test prior to x-rays. Related Data Home Medications ?Medication ?Instructions ?Recorded ?Confirmed sertraline 100 mg tablet 100 mg PO DAILY 08/07/22 07/07/24 Previous Rx's ?Medication ?Instructions ?Recorded lidocaine 4 % topical patch 1 patch topical DAILY PRN pain #10 01/06/24 ea methocarbamol 500 mg tablet 500 mg PO TID PRN muscle spasm #12 01/06/24 tabs guaifenesin 400 mg tablet 400 mg PO TID PRN cough #9 tabs 05/25/24 Allergies Allergy/AdvReac Type Severity Reaction Status Date / Time latex Allergy Mild Rash Verified 07/07/24 22:53 [facility] Disclaimer: The information contained in this section may have been updated after the patient was seen, as this information can be updated by other users. Medical History Irregular periods/menstrual cycles LLQ pain delivery delivered Surgical History Hx of tubal ligation Hx of section Family History Other Diabetes Heart attack Hypertension Social History (Updated 02/09/24 @ 20:13 by SOM Laguna) Smoking Status: Never smoker second hand exposure: Yes alcohol intake: never counseling provided: none substance use type: denies use current occupational status: other Travel in the last 8 weeks: None household members: significant other housing: house Have you lived/traveled outside US in past 30 days?: No Contact w/someone who lives/traveled outside US past 30 days?: No Exposure to someone with infectious disease in past 14 days?: No Do you have a fever (greater than 100.4 F or 38 C)?: No Have you tested positive for COVID-19: No Exposed to someone with COVID-19 in past 14 days?: No Do you have a sore throat?: No Do you have a cough?: No Do you have any weakness?: No Do you have any diarrhea?: No Are you experiencing any unusual bleeding?: No Do you have any muscle aches/pain?: No Do you have any abdominal pain?: No Are you experiencing loss of taste or smell?: No Other Medical History Have you received the Flu Vaccine for this season: No Have you received the Pneumonia Vaccine: No ROS Obtained: Yes All systems reviewed & no additional complaints except as documented Physical Exam General General appearance: alert and in no apparent distress Head Head exam: atraumatic and normocephalic Eye Eye exam: Present normal appearance, PERRL and EOMI ENT ENT exam: Present normal oropharynx and normal external ear exam Neck Neck exam: Present normal inspection and full ROM Chest Chest inspection: Present normal inspection and symmetric chest wall rise; Absent tenderness Respiratory Respiratory exam: Present normal lung sounds bilaterally; Absent respiratory distress Cardiovascular Cardiovascular exam: Present regular rate and normal rhythm Abdominal Exam Abdominal exam: Present soft; Absent distention, tenderness or guarding Extremities Exam Extremities exam: Present other (Bruising and tenderness palpation over the left distal radius, no scaphoid tenderness, no other injuries noted. Patient has range of motion intact but with pain of the wrist.); Absent edema or joint swelling Back Exam Back exam: Present normal inspection; Absent tenderness Neurological Exam Neurological exam: Present alert and oriented X3; Absent motor sensory deficit Psychiatric Psychiatric exam: Present normal affect and normal mood Skin Skin exam: Present warm, dry and normal color Lymphatic Lymphatic Findings: no adenopathy Medical Decision Making Medical Records Medical records reviewed: Yes I reviewed the patient's medical records. Screening: Per USPSTF and CDC recommendations, given the prevalence of disease in our region, it is our hospital?s policy to screen for HIV and viral Hepatitis for all patients aged 18 and over and those with ongoing risk factors. Yon Inquiry Pt receiving controlled substance: No Yon was queried for this patient: No Vital Signs: 07/07/24 22:35 07/07/24 23:49 Temperature 98 F 98.1 F Temperature Source Oral Oral Pulse Rate 80 Pulse Rate [Right] 73 Respiratory Rate 18 17 Blood Pressure 120/76 Blood Pressure [Right Arm] 116/64 Blood Pressure Mean [Right Arm] 81 Blood Pressure Source Automatic Cuff Blood Pressure Source [Right Arm] Automatic Cuff Blood Pressure Position Sitting Blood Pressure Position [Right Arm] Sitting 02 Sat by Pulse Oximetry 99 Oxygen Delivery Method Room Air Room Air Lab Data Lab results reviewed: Yes I reviewed the patient's lab results. Orders (Tests/Meds): ORDERS Category Date Time Status Wrist XR left 2 views [XR wrist LT 2V] Stat Exams 07/07/24 23:21 Taken Medical Decision Narrative: 28-year-old female without significant past medical history presents for left wrist pain after striking it with a stick.. History was obtained via interactive discussion with patient. On arrival, patient is [afebrile, hemodynamically stable, satting appropriately, alert, oriented x4, GCS 15], moving all extremities spontaneously. Full physical exam performed and significant for bruising and tenderness to the left wrist Differential includes but is not limited to fracture, dislocation, soft tissue bruising. Workup initiated including radiographs of the left wrist. On re-evaluation, patient [remains afebrile, HD stable.] Imaging independently interpreted by me and significant for no evidence of acute fracture. See radiology read for full review of final results. Given patient history, exam and workup, patient's presentation most likely represents soft tissue contusion. Patient discharged in stable condition with return precautions.. Procedures Risk/Benefits of Procedure(s) Were Explained: Yes Critical Care Critical Care Time Critical Care Time: No
[2024-07-07 23:49] VITALS: BP 120/76; PULSE 80; RESP 17; TEMP 36.7; O2SAT 99
== END 2024-07-08 00:23 | disposition home or self-care (01) ==
PROVIDERS: Emergency Provider Emergency Medicine
DX: M25.532 Pain in left wrist (principal); W22.8XXA Striking against or struck by other objects, initial encounter
CPT/HCPCS: 73100; 99283

== ENCOUNTER 2024-08-25 20:25 | Emergency (ER) | payer OTHER, SELFPAY ==
--- OUTSIDE RECORDS SUMMARY | 2024-08-25 20:51 | XMS_ITS | Data Portability ---
Author Organization [facility] [place] Address [address] [place] [address] Care Team Providers Care Barrel Inspector Tight Name Role Phone GEORGIANA CARRASQUILLO Primary Care Provider MARILEE BIRCH Cartridge Maker Assessment No assessment recorded. Plan of Treatment Reminders Order Date Submit Date Provider Last Modified By Organization Details Last Modified Time Details Appointments None recorded. Lab H pylori urea breath test, co2 infrared 2023 024 [facility] (Lab Registration) , [address] [place] [address] , [place], [address], 4 16:15:13 Referral None recorded. Procedures upper endoscopy procedure (EGD) (PROC) 2023 024 [email or web address] 4 Matt Huerta, [address] [place] [address] Dr [address], [place], [address], 4 09:30:23 colonoscopy procedure (PROC) 2023 024 [email or web address] 4 Matt Huerta, [address] [place] [address] Dr [address], [place], [address], 4 09:30:24 upper endoscopy procedure (EGD) (PROC) 2023 024 [email or web address] 4 Matt Huerta, [address] [place] [address] Dr [address], [place], [address], 4 09:30:24 Surgeries None recorded. Imaging None recorded. Medication Orders Carafate 1 gram tablet 2023 024 [facility], [address], [address], 4 11:34:23 famotidine 40 mg tablet 2023 024 [facility], [address], [address], 4 11:34:22 Miralax 17 gram/dose oral powder 2023 024 [email or web address] 4 [facility], [address], [address], 4 11:10:23 Dulcolax (bisacodyl) 5 mg tablet,jasmin yed release 2023 024 [facility], [address], [address], 4 11:12:09 Patient TargetsNo targets recorded. Patient InstructionsNo instructions recorded. Reason for Referral None Reported. Results Created Date Observation Date Name Description Value Unit Range Abnormal Flag Note LastModifiedBy Organization Detail LastModifiedTime 05/28/19 24 05/28/2023 H. PYLOR I BREAT H TEST note Unles s other sarah noted testi ng [facility] [address] [place] [address] [phone] Terrence sharpe MD CLIA: [id number] Not Available [facility] (Lab Registration) [address] [place], [address], 05/29/2023 16:15:13 05/28/19 24 05/29/2023 H. PYLOR I BREAT H TEST H pylori breath test NEGATI VE negati ve Perfo rmed at: - [facility] mercedes [address] [address] Lab Direc tor: Hi victoria PhD, Phone : [phone] Not Available [facility] (Lab Registration) [address] [place], [address], 05/29/2023 16:15:13 Result Notes None recorded. Problems Name Problem SNOMED Code Status Onset Date Resolution Date Notes Provider Name and Address Organization Details Recorded Time Depressive disorder 20778461 Active 2023 Krysta contreras, [place] - [facility] [place] & [place] 4 10:03:50 Generalized abdominal pain 283889640 Active 2023 Marilee Birch NP [address], [address], [place], [address], [place] - [facility] [place] & [place] 4 10:32:29 Nausea 414329667 Active 2023 Marilee Birch NP [address], [address], [place], [address], [place] [facility] & [place] 4 10:32:29 Gastro-esop hageal reflux disease with esophagitis 564812603 Active 2023 Marilee Birch NP [address], [address], [place], [address], [place] [facility] & [place] 4 10:32:29 Erosive gastritis 2737366345339 100 Active 2023 Marilee Birch NP [address], [address], [place], [address], [place] [facility] & [place] 4 11:32:44 Problem Notes None recorded. Procedures Surgical History Date Name Laterality Status Provider Name and Address Organization Details Recorded Time 4 EGD/Endoscopy completed Margarita Schafer [facility] - [place] & [place] 07/09/2023 15:33:00 4 Colonoscopy completed Margarita Schafer [facility] - [place] & [place] 07/09/2023 15:33:48 8 section completed Krysta Schafer [place] & [place] 05/28/2023 09:32:04 6 section completed Krysta Schafer [place] & [place] 05/28/2023 09:31:59 4 section completed Krysta Schafer [place] & [place] 05/28/2023 09:31:56 Imaging Results None recorded. Procedure Notes None recorded. Medical Equipment None Reported. Allergies Allergen ID Allergen Name Allergen Category Reaction Reaction Severity Criticality Documentation Date Start Date Code Code System Note Provider Name and Address Organization Details Recorded Time 606779 latex environme nt,medica tion Not available Not available Not available 05/28/2023 70113 91 RxNorm OLVIN Amezquita [place] & [place] 09:27:42 Medications Name Sig Start Date Stop Date Status Note LastModified by Organization Details LastModified Time meloxicam 15 mg tablet TAKE 1 TABLET BY MOUTH ONCE DAILY active Not Available Not Available No t Available sucralfate 1 gram tablet TAKE 1 TABLET BY MOUTH 4 TIMES DAILY active Not Available Not Available No t Available famotidine 40 mg tablet TAKE 1 TABLET BY MOUTH ONCE DAILY AT BEDTIME active Not Available Not Available No t Available sertraline 100 mg tablet TAKE 1 TABLET BY MOUTH ONCE DAILY active Not Available Not Available No t Available pantoprazol e 40 mg tablet,jasmin yed release Take by oral route for 30 days. active Not Available Not Available No t Available prednisone 50 mg tablet TAKE 1 TABLET BY MOUTH ONCE DAILY FOR 3 DAYS 07/29 completed Not Available Not Available Not Available sertraline 25 mg tablet TAKE 1 TABLET BY MOUTH ONCE DAILY DIRECTED active Not Available Not Available No t Available omeprazole 20 mg capsule,del ayed release TAKE 1 CAPSULE BY MOUTH ONCE DAILY active Not Available Not Available No t Available polyethylen e glycol 3350 17 gram/dose oral powder TAKE 10 CAPFULS IN 32 OZ OF GATORADE AT 4 PM THE DAY BEFORE PROCEDURE , REPEAT AT 4 AM ON THE MORNING OF PROCEDURE 07/29 completed Not Available Not Available Not Available ondansetron 4 mg disintegrat ing tablet DISSOLVE 1 TABLET IN MOUTH EVERY 8 HOURS NEEDED FOR NAUSEA AND VOMITING 07/29 completed Not Available Not Available Not Available sertraline 50 mg tablet TAKE 1 TABLET BY MOUTH IN THE MORNING DIRECTED AFTER TAKING 25 MG DAILY FOR 7 DAYS active Not Available Not Available No t Available risperidone 0.5 mg tablet TAKE 1 TABLET BY MOUTH TWICE DAILY DIRECTED, ONLY TAKE 1 TABLET AT BEDTIME FOR THE FIRST WEEK active Not Available Not Available No t Available prazosin 2 mg capsule TAKE 1 CAPSULE BY MOUTH AT BEDTIME active Not Available Not Available No t Available Dulcolax (bisacodyl) 5 mg tablet,jasmin yed release Take 2 tablets by oral route as directed for 1 day. 07/29 completed Not Available Not Available Not Available Sprintec (28) 0.25 mg-0.035 mg tablet TAKE 1 TABLET BY MOUTH ONCE DAILY active Not Available Not Available No t Available aripiprazol e 5 mg tablet TAKE 1 TABLET BY MOUTH ONCE DAILY active Not Available Not Available No t Available Vitals Date Recorded Body height Body mass index (BMI) Body weight Body temperature Oxygen saturation Oxygen saturation in Arterial blood by Pulse oximetry Heart rate Provider Name and Address Organization Details Last Updated DateTime 4 160.02 cm 31.9 kg/m2 79944.6 3 g 97.4 [degF] 98 % 98 % 83 /min Krysta Quintanilla [facility] & [place] 4 11:10:02 Social History Question Answer Notes LastModified by [employer] Details LastModified Time Tobacco Smoking Status Current Every Day Smoker Krysta Quintanilla [facility] & [place] 05/28/2023 09:33:26 How Much Tobacco Do You Smoke? 1 PPD [email or web address] Information not available 05/28/2023 Sex: Unknown Functional Status Question Answer Note LastModified by [employer] Details LastModified Time Do you use any illicit or recreational drugs? No [email or web address] Information not available 05/28/2023 What is your level of alcohol consumption? None [email or web address] Information not available 05/28/2023 Mental Status None recorded. Family History Relationship Description Onset Age of this Age Resolved Age Notes LastModified by Organization Details LastModified Time Father Diabetes mellitus [email or web address] Not available 05/27 09:34:19 Father Heart disease [email or web address] Not available 05/27 09:34:32 Medical History Condition Response Depression Y Gynecological HistoryNo gynecological history recorded. Obstetrics History GPAL:G 0 P 0 0 0 0 Past Encounters Encounter ID Performer Location Encounter Start Date Encounter Closed Date Diagnosis/Indication Diagnosis SNOMED-CT Code Diagnosis ICD10 Code Diagnosis Note [id number] Marilee Birch NP [facility] [address] [place] [address] 05/28/2023 08:55:30 06/13/2023 15:06:18 Generalized abdominal pain 916460316 R10.84 Five year history generalize d abdominal pain worse in the upper abdomen radiating throughout entire abdomen. Worse after eating. Negative CT reviewed 04/14/2023 a [facility]. normal CBC and CMP. Currently averages 4-5 sodas per day admits to poor eating habits. I have recommende d increased water intake decrease soda. Recommend H pylori breath test today. Plan for comprehens mackenzie evaluation with EGD and colonoscop y. Pt is scheduled for EGD/Colon 07/01 12:45 Nausea 038794681 R11.0 Frequent episodes of nausea without vomiting. Plan for H pylori breath test today. Recommend EGD to evaluate for H pylori gastritis, PUD, other. Gastro-eso phageal reflux disease with esophagitis 717571266 K21.00 Recently prescribed pantoprazo le without significan t improvemen t. I have recommende d smoking cessation as well as decrease caffeine intake. Plan for EGD as above to further evaluate. [id number] Marilee Birch NP [facility] [address] [address] 07/30/2023 10:53:35 07/30/2023 12:55:02 Erosive gastritis 3446190539 578934 K29.70 Moderate erosive gastritis and duodenitis noted on EGD 07/02/2023 . Negative H pylori or celiac. Patient was prescribed pantoprazo le 40 mg p.o. b.i.d. following procedure however has not received this from the pharmacy. Recommend continued use of pantoprazo le 40 mg p.o. daily as well as starting famotidine 40 mg p.o. HS for treatment. Also recommend Carafate 1 g tablet p.o. q.i.d. x1 month. I have recommende d avoidance of NSAIDs as well as decrease caffeine intake. Gastro-eso phageal reflux disease with esophagitis 674907453 K21.00 Reflux esophagiti s confirmed pathology. Continue PPI treatment. I have recommende d smoking cessation as well as decreased caffeine intake. Health Concerns Section Related Observation LastModified by Organization Detai ls LastModified Time None Recorded Concern Status LastModified by Organization Details LastModified Time None Recorded Advance Directives Directive None Recorded Payers Insurance Date Sequence Insurance Name Policy Number Policy Garcia Covered Member ID Garcia Member ID Guarantor Name 10/26/2023 1 [employer] [facility] (MEDICAID HMO) Bethgrover Glover [id number] Beth Glover Notes Date Note Type Note Provider Name and Address Organization Details Recorded Time 05/28/2023 text/html 27-year-old janice burr presents today for evaluation of 5 year history generalized abdominal pain. She describes upper abdominal pain that radiates throughout her entire abdomen. Worse after eating. No food triggers identified. Currently averages 4-5 sodas per day. Drinks very little water and admits to poor eating habits. Reports daily bowel movements without hematochezia. Experiences associated nausea without vomiting. Also experiencing GERD symptoms. Recently prescribed pantoprazole without improvement. Currently smokes 1 pack per day. Evaluated [facility] 03/[address] scan noting small fat containing umbilical hernia otherwise unremarkable. Normal CBC CMP. Marilee Birch NP [address] [facility], [address], [place], [address], [facility] - [place] & [place] 06/13/2023 10:33:25 07/30/2023 text/html Patient returns to clinic today for follow-up post upper and lower endoscopy completed 07/02/2023. EGD was significant for moderate erosive gastritis as well as duodenitis. Pathology negative H pylori or celiac disease. Patient was prescribed pantoprazole 40 mg p.o. b.i.d. following procedure however has not received this prescription from her pharmacy. She continues once daily dosing pantoprazole at this time. Continues to experience significant upper abdominal pain and nausea. Colonoscopy appeared normal with negative random colon biopsies. She continues to report drinking 4-5 sodas per day admits to poor eating habits. CT scan 03/2023 from [facility] noted small fat containing umbilical hernia otherwise unremarkable. Marilee Birch NP [address], [address], [place], [address], [place] - [facility] - [place] & [place] 07/30/2023 12:50:26 OBGyn Episode No OBEpisode recorded.
--- OUTSIDE RECORDS SUMMARY | 2024-08-25 20:51 | XMS_ITS | Clinical Summary ---
Author Organization Healthcare Address [address] [place] [address] Care Team Providers Care Ship Laborer Name Role Phone Bernardo Lr MD Primary Care Provider Allergies Active Allergy Reactions Criticality Noted Date Comments Cinnamon Swelling High 12/03/2022 Swelling of throat Latex Swelling High 08/18/2018 SWELLING Medications ARIPiprazole (Abilify) 5 MG tablet Take 1 tablet (5 mg) by mouth 1 (one) time each day. 07/25/2022 Active omeprazole (PriLOSEC) [address] capsule Take 1 capsule (20 mg) by mouth 1 (one) time each day. 10/09/2022 Active prazosin (Minipress) 2 MG capsule Take 1 capsule (2 mg) by mouth every night. 03/28/2023 Active sertraline (Zoloft) 100 MG tablet Take 1 tablet (100 mg) by mouth 1 (one) time each day. 07/25/2022 Active Active Problems Problem Noted Date Diagnosed Date Umbilical hernia without obstruction and without gangrene 07/17/2023 Cigarette nicotine dependence without complicati on 07/17/2023 Family History Medical History Relation Name Comments Heart disease Father Relation Name Status Comments Father Social History Tobacco Use Types Packs/Day Years Used Date Smoking Tobacco: Every Day Cigarettes 1.5 17 Passive Smoke Exposure: Never Smokeless Tobacco: Never Tobacco Cessation:Ready to Q uit: No; Counseling Given: No Comments:Light cigarette smoker (1-9 cigarettes per day) Alcohol Use Standard Drinks/Week Comments Never 0 (1 standard drink = 0.6 oz pur e alcohol) PHQ-2 Answer Date Recorded Patient Health Questionnaire-2 Score 0 07/17/2023 Comments No Sex and Gender Information Value Date Recorded Sex Assigned at Not on file Legal Sex Female 5:55 PM EDT Gender Identity Not on file Sexual Orientation Not on file Last Filed Vital Signs Vital Sign Reading Time Taken Comments Blood Pressure 109/66 07/17/2023 10:12 AM EDT Pulse 85 07/17/2023 10:12 AM EDT Temperature 36.6 C (97.8 F) 07/17/2023 10:12 AM EDT Respiratory Rate 16 07/17/2023 10:1 2 AM EDT Oxygen Saturation 96% 04/14/2023 10: 16 PM EST Inhaled Oxygen Concentration - - Weight 82.9 kg (182 lb 11.2 oz) 024 10:12 AM EDT Height 158.8 cm (5' 2.5 ) 07/17/2023 10 :12 AM EDT Body Mass Index 32.88 07/17/2023 10:12 AM EDT Plan of Treatment Health Maintenance Due Date Last Done Comments [facility]-/Child/Adol SDOH Screenings 1995 [facility]-Varicella Vaccines (1 of 2 - 13+ 2-dose series) 10/27/2008 [facility]- SDOH Screenings 10/27/2013 [facility]-Adult SDOH Screenings 10/27/2013 [facility]-Hepatitis B Vaccines (1 of 3 - 19+ 3-dose series) 10/27/2014 [facility]-Pap Smear 10/27/2016 [id number] Vaccine (2 - season) 2023 11/21/2021 [facility]-Depression Screening 07/16/2024 07/17/2023 [facility]-Influenza Vaccine (Seaso n Ended) 2024 [facility]-DTaP,Tdap,and Td Vaccine s (3 - Td or Tdap) 10/09/2032 10/09/2022, 10/15/2007 [facility]-Zoster Vaccines (1 of 2) 10/27/2045 HPV Vaccines Completed 11/04/2008, 12/14/2007, 10/15/2007 [facility]-HIV Screening Completed 04/14/2023 [facility]-Hepatitis C Screening Completed 2023, 10/09/2022, 02/11/2018 [facility]-Obesity Intervention Completed 07/17/2023 [facility]-HIB Vaccines Aged Out No longer e ligible based on patient's age to complete this topic [facility]-Hepatitis A Vaccines Aged Out No longer eligible based on patient's age to complete this topic [facility]-IPV Vaccines Aged Out No longer e ligible based on patient's age to complete this topic [facility]-Pneumococcal Vaccine: Pediatrics (0 to 5 Years) and At-Risk Patients (6 to 49 Years) Aged Out No longer eligible b ased on patient's age to complete this topic [facility]-Rotavirus Vaccines Aged Out No lo nger eligible based on patient's age to complete this topic Procedures Procedure Name Priority Date/Time Associated Diagnosis Comments HEPATITIS C ANTIBODY - ED W/REFLEX TO HCV QUANT PCR STAT 04/14/2023 5:58 PM EST ED HIV 1/2 ANTIBODY/ANTIGEN SCREEN WITH REFLEX TO HIV I/II DIFFERENTIATION STAT 04/14/2023 5:58 PM EST from Last 3 Months or Most Recently Relevant to Health Maintenance Results * ED HIV 1/2 Antibody/Antigen Screen w/Reflex to HIV 1/2 Differentiation (04/14/2023 5:58 PM EST) HIV 1 & 2 Antibody/Antigen Screen Non Reactive Non Reactive 04/14/2023 6:45 PM EST [facility] Comment:Screening for HIV 1 & 2 antibodies, and P24 antigen is NONREACTIVE. No confirmatory testing is required. Blood Venous blood specimen / Unknown Venipuncture / Unknown 04/14/2023 5:58 PM EST 04/14/2023 6:06 PM EST [facility] BLOOD ORDERABLES Final Result [facility] [address] [place] [address] * Hepatitis C Antibody - ED (04/14/2023 5:58 PM EST) Hepatitis C Antibody Negative Negative 04/14/2023 6:40 PM EST [facility] Blood Venous blood specimen / Unknown Venipuncture / Unknown 04/14/2023 5:58 PM EST 04/14/2023 6:06 PM EST [facility] BLOOD ORDERABLES Final Result [facility] [address] [place] [address] from Last 3 Months or Most Recently Relevant to Health Maintenance [facility] Care Teams Ship Laborer Relationship Specialty Start Date End Date Bernardo Lr MD [address] [place] [address] [place] [address] PCP - General 07/28/20
[2024-08-25 20:52] VITALS: BP 116/63; PULSE 89; RESP 14; TEMP 36.3; O2SAT 100; BMI 28.8
[2024-08-25 21:01] VITALS: BP 120/75; PULSE 93; O2SAT 100
[2024-08-25] MEDS: hydrOXYzine pamoate 25MG CAPSULE 25 MG PO (21:14)
[2024-08-25 21:43] VITALS: BP 122/82; PULSE 84; RESP 16; TEMP 36.8; O2SAT 98
--- NOTE | 2024-08-25 22:03 | ED_ITS ---
Discharge Plan Disposition Patient Disposition: Home, Self-Care Condition: Good Prescriptions Prescriptions: New permethrin 5 % cream 1 applic topical Q14D Qty: 60 1RF Rx Instructions: Apply from the neck down. Leave on for 8-12 hours before washing off. Apply a second treatment 7-14 days after first treatment if symptoms persist hydroxyzine pamoate 25 mg capsule 25 mg PO Q8H PRN (Reason: itching) Qty: 30 0RF No Action guaifenesin 400 mg tablet 400 mg PO TID PRN (Reason: cough) Qty: 9 0RF sertraline 100 mg tablet 100 mg PO DAILY Patient Comments: TAKE 1 TABLET BY MOUTH ONCE DAILY IN THE MORNING DIRECTED methocarbamol 500 mg tablet 500 mg PO TID PRN (Reason: muscle spasm) Qty: 12 0RF lidocaine 4 % adhesive patch,medicated 1 patch topical DAILY PRN (Reason: pain) Qty: 10 0RF Rx Instructions: apply patch and leave on for 12 hours then remove for 12 hours Referrals Follow up/Referrals: Provider,Referral, MD [Primary Care Provider, Medical] - See instructions Activity Restrictions/Add. Instructions Additional Instructions/Restrictions: You were evaluated in the emergency department today. 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 Leave on for 8 to 12 hours, and then wash it off. Reapply again in 1 to 2 weeks if you still have rash/itching. developer prover upholstering your prescription for Vistaril and take as needed for itching. Please make sure that you wash all of your bedding and linens as well as any bulky items. For best success, keep all items sealed for 2 weeks to kill any sort of parasites. Anyone who shares a bed/home with you should be treated. Follow-up with your primary care provider for reassessment. Clinical Impressions Clinical Impression: Scabies Instructions Patient Instructions: DI for Scabies, DI for Rash Print Language Print Language: Montenegrin Discharge ED Provider: Brigette Stevens General Adult HPI General Chief complaint: Skin/Abscess/Foreign Body Stated complaint: spots and rash and itching all over Time Seen by Provider: 08/25/24 20:57 Mode of Arrival: Family Vehicle Source of Information: Patient Description of Symptoms (Recalled from ER Triage Doc. by RN): Rash Pt presents to the ED with c/o a painful and itchy rash on her R leg and R wrist X 2 days. History of Present Illness HPI narrative: This patient is a 28-year-old female who denies significant past medical history presenting for painful itchy rash to her bilateral feet and legs and bilateral hands and arms. She notes has been going on for 2 days. No when she is been around has a rash. She denies any outdoor exposures. No new exposures such as medications or foods. No fevers, cough, congestion, or other symptoms. The rash is intensely pruritic. Related Data Home Medications ?Medication ?Instructions ?Recorded ?Confirmed sertraline 100 mg tablet 100 mg PO DAILY 08/07/22 Previous Rx's ?Medication ?Instructions ?Recorded lidocaine 4 % topical patch 1 patch topical DAILY PRN pain #10 01/06/24 ea methocarbamol 500 mg tablet 500 mg PO TID PRN muscle s pasm #12 01/06/24 tabs guaifenesin 400 mg tablet 400 mg PO TID PRN cough #9 t abs 05/25/24 hydroxyzine pamoate 25 mg capsule 25 mg PO Q8H PRN itc jamar #30 caps 08/25/24 permethrin 5 % topical cream 1 applic topical Q14D 2 d oses #60 08/25/24 grams Allergies Allergy/AdvReac Type Severity Reaction Status Date / Time latex Allergy Mild Rash Verified 08/25/24 21:18 [facility] Disclaimer: The information contained in this section may have been updated after the patient was seen, as this information can be updated by other users. Medical History Irregular periods/menstrual cycles LLQ pain delivery delivered Surgical History Hx of tubal ligation Hx of section Family History Other Diabetes Heart attack Hypertension Social History Smoking Status: Current every day smoker tobacco type: cigarettes packs per day: 1 second hand exposure: Yes alcohol intake: never counseling provided: none substance use type: denies use current occupational status: other Travel in the last 8 weeks?: None household members: significant other housing: house Have you lived/traveled outside US in past 30 days?: No Contact w/someone who lives/traveled outside US past 30 days?: No Exposure to someone with infectious disease in past 14 days?: No Do you have a fever (greater than 100.4 F or 38 C)?: No Have you tested positive for COVID-19?: No Exposed to someone with COVID-19 in past 14 days?: No Do you have a sore throat?: No Do you have a cough?: No Do you have any weakness?: No Do you have any diarrhea?: No Are you experiencing any unusual bleeding?: No Do you have any muscle aches/pain?: No Do you have any abdominal pain?: No Are you experiencing loss of taste or smell?: No Other Medical History Have you received the Flu Vaccine for this season: No Have you received the Pneumonia Vaccine: No ROS Obtained: Yes All systems reviewed & no additional complaints except as documented Physical Exam General General appearance: alert and in no apparent distress Head Head exam: atraumatic and normocephalic Eye Eye exam: Present normal appearance, PERRL and EOMI ENT ENT exam: Present normal exam, normal oropharynx, mucous membranes moist and normal external ear exam Neck Neck exam: Present normal inspection, full ROM and trachea midline; Absent tenderness Chest Chest inspection: Present normal inspection and symmetric chest wall rise; Absent tenderness Respiratory Respiratory exam: Present normal lung sounds bilaterally; Absent respiratory distress, wheezes, stridor or accessory muscle use Cardiovascular Cardiovascular exam: Present regular rate and normal rhythm Abdominal Exam Abdominal exam: Present soft; Absent distention, tenderness or guarding Extremities Exam Extremities exam: Present normal inspection, full ROM and normal capillary refill; Absent tenderness or edema Back Exam Back exam: Present normal inspection and full ROM; Absent tenderness Neurological Exam Neurological exam: Present alert, oriented X3, CN II-XII intact and normal gait; Absent motor sensory deficit Psychiatric Psychiatric exam: Present normal affect and normal mood Skin Skin exam: Present warm, dry and rash (Erythematous papular pustular rash to the bilateral feet and hands extending up into the lower legs and forearms. No bullae, sloughing, or other concerns) Medical Decision Making Medical Records Medical records reviewed: Yes I reviewed the patient's medical records. Screening: Per USPSTF and CDC recommendations, given the prevalence of disease in our region, it is our hospital?s policy to screen for HIV and viral Hepatitis for all patients aged 18 and over and those with ongoing risk factors. Yon Inquiry Pt receiving controlled substance: No Vital Signs: 08/25/24 20:52 08/25/24 21:01 08/25/24 21:43 Temperature 97.4 F L 98.3 F Temperature Source Oral Oral Pulse Rate 93 H 84 Pulse Rate [Right] 89 Respiratory Rate 14 16 Blood Pressure 120/75 122/82 Blood Pressure [Right Arm] 116/63 Blood Pressure Mean [Right Arm] 80 Blood Pressure Source [Right Arm] Automatic Cuff Blood Pressure Position [Right Arm] Sitting 02 Sat by Pulse Oximetry 100 100 Oxygen Delivery Method Room Air Room Air Lab Data Lab results reviewed: Yes I reviewed the patient's lab results. Orders (Tests/Meds): ED MEDICATIONS Discontinued Medications Generic Name Dose Route Start Last Admin Trade Name Freq PRN Reason Stop Dose Admin Hydroxyzine Pamoate 25 mg 08/25/24 21:09 08/25/24 21:14 Hydroxyzine Pamoate 25mg Capsule PO 08/25/24 21:10 25 mg ONCE ONE Administration Medical Decision Narrative: In summary, this patient is a 28-year-old female presenting to the Emergency Department for evaluation of itchy rash. Differential diagnoses considered include but are not limited to chiggers, scabies, contact dermatitis, allergic reaction. Ruling out the most morbid conditions drove assessment. On exam, patient has erythematous pustular papular rash to the bilateral upper and lower extremities of the hands and feet. No bullae, sloughing, or other concerns. She denies going outside to do anything outside or any known exposures. Based on exam, I favor scabies as a cause of her rash. She notes that she thinks that she knows he might of given it to her. I advised that she wash all bedding/linens and bulky items as well as prescribed permethrin with instructions for use and treatment of her household. I also prescribed Vistaril for itching. She was given instructions for close follow-up with primary care and strict return precautions Critical Care Critical Care Time Critical Care Time: No
== END 2024-08-25 21:47 | disposition home or self-care (01) ==
PROVIDERS: Emergency Provider Emergency Medicine
DX: B86 Scabies (principal)
CPT/HCPCS: 99283

== ENCOUNTER 2024-11-03 16:28 | Emergency (ER) | payer OTHER, SELFPAY ==
[2024-11-03 16:35] VITALS: BP 132/55; PULSE 78; RESP 18; TEMP 36.6; O2SAT 100; BMI 28.1
--- OUTSIDE RECORDS SUMMARY | 2024-11-03 16:36 | XMS_ITS | Patient Health Record ---
Author Organization [facility] Address [address] [place] [address] Care Team Providers Care Orthotic/Prosthetic Clinician Name Role Phone Eliana Dia Unavailable [phone] Allergies Allergen (clinical drug ingredient) Drug/Non Drug Allergy documented on EMR Reaction Allergy Type Onset Date Status LATEX EXAM GLOVES (DISPOSABLE GLOVES) Unspecified Drug Allergy 02/11/2018 Active Reason For Referral No Information Problems Problem Type SNOMED Code ICD Code Onset Dates Problem Status W/U Status Risk Notes Problem Encounter for test with result negative (Z32.02) 0 Active confirmed Urine test negative Plan Of Treatment No Information Medical (General) History Medical History History ICD Code Anxiety Depression UTI's Recurrent Yeast Infection FLAGYL 500 MG ORAL TABLET, ORAL Surgical History Surgery Date(Month/Year) section - 12-26-15, Se ction - 06-03-17
--- OUTSIDE RECORDS SUMMARY | 2024-11-03 16:36 | XMS_ITS | Clinical Summary ---
Author Organization Healthcare Address [address] [place] [address] Care Team Providers Care Play Back Operator Name Role Phone Bernardo Lr MD Primary [...] Health Maintenance Due Date Last Done Comments [facility]-Infant/Child/Adol SDOH Screenings 1995 [facility]-Varicella Vaccines (1 of 2 - 13+ 2-dose series) 10/27/2008 [facility]- SDOH Screenings 10/27/2013 [facility]-Adult SDOH Screenings 10/27/2013 [facility]-Hepatitis B Vaccines (1 of 3 - 19+ 3-dose series) 10/27/2014 [facility]-Pap Smear 10/27/2016 [id number] Vaccine (2 - season) 2023 11/21/2021 [facility]-Depression Screening 07/16/2024 07/17/2023 [facility]-Influenza Vaccine (#1) 2024 [facility]-DTaP,Tdap,and Td Vaccine s (3 - [...] Reactive Non Reactive 04/14/2023 6:45 PM EST [facility] Comment:Screening for HIV 1 & 2 antibodies, and P24 antigen is NONREACTIVE. No confirmatory testing is required. Blood Venous blood specimen / Unknown Venipuncture / Unknown 04/14/2023 5:58 PM EST 04/14/2023 6:06 PM EST [facility] BLOOD ORDERABLES Final Result [facility] [address] [place] [address] * Hepatitis C Antibody - ED (04/14/2023 5:58 PM EST) Hepatitis C Antibody Negative Negative 04/14/2023 6:40 PM EST [facility] Blood Venous blood specimen / Unknown Venipuncture / Unknown 04/14/2023 5:58 PM EST 04/14/2023 6:06 PM EST [facility] BLOOD ORDERABLES Final Result [facility] [address] [place] [address] from Last 3 Months or Most Recently Relevant to Health Maintenance Insurance MEDICAID Care Teams Play Back Operator Relationship Specialty Start Date End Date Bernardo Lr MD [address] [place] [address] [place] [address] PCP - General 07/28/20
--- OUTSIDE RECORDS SUMMARY | 2024-11-03 16:36 | XMS_ITS | Clinical Summary ---
Author Organization [facility] yste Address [address] [place] [address] Care Team Providers Care Retail Pharmacist Name Role Phone Bernardo Lr MD Primary Care Provider [phone] Allergies Active Allergy Reactions Criticality Noted Date Comments Cinnamon Swelling 12/03/2022 Swelling of throat Latex Swelling 08/18/2018 SWELLING Medications ARIPiprazole (ABILIFY) 5 MG tablet Take 1 tablet by mouth Daily. 3 Active sertraline (ZOLOFT) 100 MG tablet Take 1 tablet by mouth Daily. 3 Active prazosin (MINIPRESS) 2 MG capsule TAKE 1 CAPSULE BY MOUTH ONCE DAILY AT NIGHT AT BEDTIME 4 Active pantoprazole (PROTONIX) 40 MG EC tabletIndications:D yspepsia,Nausea and vomiting, unspecified vomiting type Take 1 tablet by mouth Daily. 90 tablet 1 4 Active ondansetron ODT (ZOFRAN-ODT) 4 MG disintegrating tabletIndications:N ausea and vomiting, unspecified vomiting type Place 1 tablet on the tongue Every 8 (Eight) Hours As Needed for Vomiting or Nausea. 6 tablet 4 Active Active Problems Problem Noted Date Diagnosed Date Reducible umbilical hernia 04/22/2023 Assessment & Plan (04/22/2023 12:33 PM EST): Incidental finding of small fat-containing umbilical hernia on recent CT of the abdomen pelvis, reducible on exam, very unlikely related to any of her symptoms. Generalized abdominal pain 04/22/2023 Assessment & Plan (04/22/2023 12:35 PM EST): 5-year history of vague abdominal pain, recent ER investigations unremarkable including CT scan imaging revealing only a small fat-containing umbilical hernia that is reducible on exam, lab testing unremarkable, no red flag symptoms or signs as noted. Etiology could represent simply dyspepsia, versus adhesions, versus other. Referring to GI for further evaluation. Nausea and vomiting 04/22/2023 Assessment & Plan (04/22/2023 12:35 PM EST): Acute symptoms, worse with greasy food intake, likely dyspepsia. Changing omeprazole 20 mg daily over to pantoprazole 40 mg daily pending GI consultation. Moderate obesity 04/22/2023 Assessment & Plan (04/22/2023 12:34 PM EST): 20 pound weight gain in the last 9 months. Poor lifestyle with limited physical activity, and poor diet including excessive sodas junk foods and fast foods with limited fruits and vegetables. Discussed need to improve her lifestyle. Note she did have normal lab testing from 09/2022 including a normal TSH, as well as additional recent lab testing in the ER all of which was unremarkable. Mastalgia in female 12/03/2022 PTSD (post-traumatic stress disorder) 10/09/2022 Chronic pain of left knee 10/09/2022 Costochondritis 10/09/2022 Screen for STD (sexually transmitted disease) Need for prophylactic vaccin ation against Streptococcus pneumoniae (pneumococcus) 10/09/2022 Mild obesity 10/09/2022 Screening for thyroid disorder 10/09/2022 Screening for diabetes mellitus 10/09/2022 Dyslipidemia 10/09/2022 Vitamin D deficiency 10/09/2022 Dyspepsia 10/09/2022 Assessment & Plan (04/22/2023 12:32 PM EST): Patient having apparent dyspepsia with postprandial nausea especially with greasy foods, no specific focal right upper quadrant discomfort, acutely having some vomiting secondarily as well. Currently taking omeprazole 20 mg daily, and will switch to pantoprazole 40 mg daily to assess for any improved clinical benefit, using Zofran as needed for nausea. She does not have any red flag symptoms that would be suggestive of IBD, specifically no fevers chills weight loss bloody diarrhea etc. Given chronic symptoms of abdominal pain with negative workup in the ER recently being unremarkable other than an incidental finding of a small clinically reducible fat-containing umbilical hernia, will refer to GI for further evaluation. Dental decay 10/09/2022 Need for hepatitis C screening test 10/09/2022 Anxiety 08/09/2022 Overweight (BMI 25.0-29.9) 08/09/2022 Cigarette smoker 08/09/2022 Ruptured ovarian cyst 08/09/2022 Recurrent major depressive disorder, in partial remission 08/09/2022 anemia 08/22/2018 History of depression 08/22/2018 Single liveborn, born in [facility], delivered by section 08/19/2018 Resolved Problems Problem Noted Date Diagnosed Date Resolved Date Term 08/19/2018 08/19/2018 Immunizations Immunization Administration Dates Next Due COVID-19 (MODERNA) 1st,2nd,3 rd Dose Monovalent 11/21/2021 HPV Quadrivalent 11/04/2008,12/14/2007, 8 Tdap 10/09/2022,10/15/2007 Social History Tobacco Use Types Packs/Day Years Used Date Smoking Tobacco: Every Day Cigarettes 1 10 Smokeless Tobacco: Never Tobacco Cessation:Ready to Q uit: Not Asked; Counseling Given: Not Answered Alcohol Use Standard Drinks/Week Comments No 0 (1 standard drink = 0.6 oz pur e alcohol) AUDIT-C Answer Date Recorded Frequency of Alcohol Consumption Never 08/18/2018 Average Number of Drinks Not on file 019 Frequency of Binge Drinking Not on file 06/2018 PHQ-2 Answer Date Recorded Retired PHQ-9: Brief Depression Severity Measure Score 0 10/09/2022 Buhler Depression Scale Answer Date Recorded Retired Buhler Depression Score 10 08/20/2018 Retired EPD Scale: Thought of Harming Self Unrec ognized value 08/20/2018 PHQ-2 Answer Date Recorded Retired PHQ-9: Brief Depression Severity Measure Score 0 04/22/2023 Comments Unknown Sex and Gender Information Value Date Recorded Sex Assigned at Not on file Legal Sex Female 5:24 PM EST Gender Identity Not on file Sexual Orientation Not on file Last Filed Vital Signs Vital Sign Reading Time Taken Comments Blood Pressure 120/80 04/22/2023 11:17 AM EST Pulse 107 04/22/2023 11:17 AM EST Temperature 36.7 C (98.1 F) 04/22/2023 11:17 AM EST Respiratory Rate 16 08/22/2018 8:00 AM EDT Oxygen Saturation 98% 04/22/2023 11:17 AM EST Inhaled Oxygen Concentration - - Weight 83 kg (183 lb) 04/22/2023 11:17 AM EST Height 157.5 cm (5' 2 ) 04/22/2023 11:17 AM EST Body Mass Index 33.47 04/22/2023 11:17 AM EST Plan of Treatment Health Maintenance Due Date Last Done Comments Annual Gynecologic Pelvic an d Breast Exam 1995 Pneumococcal Vaccine 0-49 (1 of 2 - PCV) 10/27/2014 PAP SMEAR 10/27/2016 ANNUAL PHYSICAL 10/10/2023 10/09/2022 COVID-19 Vaccine (2 - 2023-2 5 season) 2023 11/21/2021 INFLUENZA VACCINE 12/15/2024 TDAP/TD VACCINES (3 - Td or Tdap) 10/09/2032 023, 10/15/2007 CHLAMYDIA SCREENING Discontinued 10/09/2022 HEPATITIS C SCREENING Completed 04/14/2023 , 10/09/2022, 02/11/2018 Procedures Procedure Name Priority Date/Time Associated Diagnosis Comments CHLAMYDIA TRACHOMATIS, NEISSERIA GONORRHOEAE, PCR Routine 10/09/2022 11:08 AM EDT Screen for STD (sexually transmitted disease) HEPATITIS C ANTIBODY Routine 10/09/2022 11:07 AM EDT Screen for STD (sexually transmitted disease) Need for hepatitis C screening test from Last 3 Months or Most Recently Relevant to Health Maintenance Results * Chlamydia trachomatis, Neisseria gonorrhoeae, PCR - Urine, Urine, Random Void (10/09/2022 11:08 AM EDT) Chlamydia trachomatis, BRANDI Negative Negative [facility] Neisseria gonorrhoeae, BRANDI Negative Negative [facility] Urine Voided urine specimen / Unknown 10/09/2022 11:08 AM EDT 10/10/2022 Comment:Urine Release to pat i Narrative [facility] (AMBULATORY) - 10/11/2022 7:07 AM EDT Performed at: 01 - [address] [place] [id number] Benefits Consulting Analyst: Regina Carmona MD, Phone: [phone] Bernardo Lr MD MICROBIOLOGY - GENERAL ORDERAB LES Final Result Performing Organization Address City/[facility]/ZIP Co de Phone Number [facility] (AMBULATORY) [address] [place] [address], [place] [phone] [facility] [address] [place] [address], [place] [phone] * Hepatitis C Antibody (10/09/2022 11:07 AM EDT) Hep C Virus Ab Non Reactive Non Reactive [facility] Comment: HCV antibody alone does not differentiate between previously resolved infection and active infection. Equivocal and Reactive HCV antibody results should be followed up with an HCV RNA test to support the diagnosis of active HCV infection. Blood Structure of right upper limb / Unknown 10/09/2022 11:07 AM EDT 10/10/2022 Comment:Blood Release to [facility] (AMBULATORY) - 10/10/2022 1:06 PM EDT [facility]formed at: [facility] [address] [place], [place] [id number] Benefits Consulting Analyst: Thor Redding PhD, Phone: [phone] Bernardo Lr MD LAB BLOOD ORDERABLES Final Res ult Performing Organization Address City/[facility]/ZIP Co de Phone Number [facility] (AMBULATORY) [address] [place] [address], [place] [phone] [facility] [address] [place] [address], [place] [phone] from Last 3 Months or Most Recently Relevant to Health Maintenance Insurance [place]ES [id number] [employer] [facility] Advance Directives * CPR (Attempt to Resuscitate) (Latest Code Status on File) Date Activated Date Inactivated Comments 08/19/2018 3:18 PM 08/22/2018 4:32 PM Question Answer Comments Code Status (Patient has no pulse and is not breathing): CPR (Attempt to Resuscitate) Medical Interventions (Patie nt has pulse or is breathing): Full * CPR (Attempt to Resuscitate) Date Activated Date Inactivated Comments 08/19/2018 11:08 AM 08/19/2018 3:18 PM Question Answer Comments Code Status (Patient has no pulse and is not breathing): CPR (Attempt to Resuscitate) Medical Interventions (Patie nt has pulse or is breathing): Full Care Teams Retail Pharmacist Relationship Specialty Start Date End Date Bernardo Lr MD [address] [place] [address] [place] [address] PCP - General Internal Medicine 08/09/22
[2024-11-03 16:43] LABS: Coronavirus 19, PCR Not Detected (NotDetected); Influenza A, PCR Not Detected (NotDetected); Influenza B, PCR Not Detected (NotDetected)
--- NOTE | 2024-11-03 16:44 | ED_ITS ---
<Statement entered by Marilou Skinner DO - 11/03/24 19:44> I was consulted by the ANNE-MARIE, and we discussed the complexity of problems being addressed. I approve the treatment and management plan for this patient's care in the emergency department, thus performing a substantial portion of the medical decision making. Marilou Skinner DO Discharge Plan Disposition Patient Disposition: Home, Self-Care Prescriptions Prescriptions: New meclizine 12.5 mg tablet 12.5 mg PO TID 20 Days Qty: 60 0RF No Action guaifenesin 400 mg tablet 400 mg PO TID PRN (Reason: cough) Qty: 9 0RF sertraline 100 mg tablet 100 mg PO DAILY Patient Comments: TAKE 1 TABLET BY MOUTH ONCE DAILY IN THE MORNING DIRECTED methocarbamol 500 mg tablet 500 mg PO TID PRN (Reason: muscle spasm) Qty: 12 0RF lidocaine 4 % adhesive patch,medicated 1 patch topical DAILY PRN (Reason: pain) Qty: 10 0RF Rx Instructions: apply patch and leave on for 12 hours then remove for 12 hours permethrin 5 % cream 1 applic topical Q14D Qty: 60 1RF Rx Instructions: Apply from the neck down. Leave on for 8-12 hours before washing off. Apply a second treatment 7-14 days after first treatment if symptoms persist hydroxyzine pamoate 25 mg capsule 25 mg PO Q8H PRN (Reason: itching) Qty: 30 0RF Referrals Follow up/Referrals: Sophia Childress APRN [Nurse Practitioner, Ear, Nose, Throat] - See instructions Provider,Referral, MD [Primary Care Provider, Medical] - See instructions Activity Restrictions/Add. Instructions Additional Instructions/Restrictions: Increase rest and fluids. Take meds as directed. If any worsening symptoms please return to the ED or see PCP Clinical Impressions Clinical Impression: Benign paroxysmal positional vertigo Instructions Patient Instructions: Benign Paroxysmal Positional Vertigo Print Language Print Language: Hungarian Discharge ED Provider: Marilou Skinner General Adult HPI <Kimmie Enriquez (ED), AGRICULTURAL AND FORESTRY SUPERVISOR - Last Filed: 11/03/24 18:16> General Chief complaint: Dizziness Stated complaint: dizzy,body aches Time Seen by Provider: 11/03/24 16:30 Mode of Arrival: Ambulatory Source of Information: Patient and Relative Description of Symptoms (Recalled from ER Triage Doc. by RN): leydi presents to the ED for dizziness and body aches. PAtient stated this started this morning, does not endorse being around anyone that has been sick. Patient denies any falls with the ongoing dizziness. History of Present Illness HPI narrative: 29-year-old female presents to the ED today for complaint of dizziness that started this morning with bodyaches. She says she has dizziness when she stands or sits. She says it feels like everything is spinning when she sits or stands. Patient states that she will occasionally have a headache as well. She says she did have 2 episodes of diarrhea this morning. Patient has had no fevers or chills. No nausea. No other symptoms. Related Data Home Medications ?Medication ?Instructions ?Recorded ?Confirmed sertraline 100 mg tablet 100 mg PO DAILY 08/07/22 Previous Rx's ?Medication ?Instructions ?Recorded lidocaine 4 % topical patch 1 patch topical DAILY PRN pain #10 01/06/24 ea methocarbamol 500 mg tablet 500 mg PO TID PRN muscle s pasm #12 01/06/24 tabs guaifenesin 400 mg tablet 400 mg PO TID PRN cough #9 t abs 05/25/24 hydroxyzine pamoate 25 mg capsule 25 mg PO Q8H PRN itc jamar #30 caps 08/25/24 permethrin 5 % topical cream 1 applic topical Q14D 2 d oses #60 08/25/24 grams meclizine 12.5 mg tablet 12.5 mg PO TID 20 days #60 t abs 11/03/24 Allergies Allergy/AdvReac Type Severity Reaction Status Date / Time latex Allergy Mild Rash Verified 08/25/24 21:18 [facility] <Kimmie Enriquez (ED), AGRICULTURAL AND FORESTRY SUPERVISOR - Last Filed: 11/03/24 18:16> [facility] Disclaimer: The information contained in this section may have been updated after the patient was seen, as this information can be updated by other users. Medical History Irregular periods/menstrual cycles LLQ pain delivery delivered Surgical History Hx of tubal ligation Hx of section Family History Other Diabetes Heart attack Hypertension Social History Smoking Status: Current every day smoker tobacco type: cigarettes packs per day: 1 second hand exposure: Yes alcohol intake: never counseling provided: none substance use type: denies use current occupational status: other Travel in the last 8 weeks?: None household members: significant other housing: house Have you lived/traveled outside US in past 30 days?: No Contact w/someone who lives/traveled outside US past 30 days?: No Exposure to someone with infectious disease in past 14 days?: No Do you have a fever (greater than 100.4 F or 38 C)?: No Have you tested positive for COVID-19?: No Exposed to someone with COVID-19 in past 14 days?: No Do you have a sore throat?: No Do you have a cough?: No Do you have any weakness?: No Do you have any diarrhea?: No Are you experiencing any unusual bleeding?: No Do you have any muscle aches/pain?: No Do you have any abdominal pain?: No Are you experiencing loss of taste or smell?: No Other Medical History Have you received the Flu Vaccine for this season: No Have you received the Pneumonia Vaccine: No <Kimmie Enriquez (ED), AGRICULTURAL AND FORESTRY SUPERVISOR - Last Filed: 11/03/24 18:16> ROS Obtained: Yes Systems reviewed as appropriate & no additional complaints ex cept as documented Constitutional Constitutional: Reports as per HPI Physical Exam <Kimmie Enriquez (ED), AGRICULTURAL AND FORESTRY SUPERVISOR - Last Filed: 11/03/24 18:16> General General appearance: alert, in no apparent distress and anxious Head Head exam: normocephalic Eye Eye exam: Present PERRL and EOMI ENT ENT exam: Present mucous membranes moist Respiratory Respiratory exam: Present normal lung sounds bilaterally Cardiovascular Cardiovascular exam: Present regular rate, normal rhythm, +S1 and +S2 Abdominal Exam Abdominal exam: Present soft and normal bowel sounds Extremities Exam Extremities exam: Present normal inspection and full ROM Neurological Exam Neurological exam: Present alert and oriented X3 Skin Skin exam: Present warm and dry <Marilou Skinner DO - Last Filed: 11/03/24 19:44> Neurological Exam Neurological exam: Present other (1 beat nystagmus to the left, no vertical nystagmus, non-focal neuro exam) Medical Decision Making <Kimmie Enriquez (ED), AGRICULTURAL AND FORESTRY SUPERVISOR - Last Filed: 11/03/24 18:16> Medical Records Screening: Per USPSTF and CDC recommendations, given the prevalence of disease in our region, it is our hospital?s policy to screen for HIV and viral Hepatitis for all patients aged 18 and over and those with ongoing risk factors. Yon Inquiry Pt receiving controlled substance: No Yon was queried for this patient: No Vital Signs: 11/03/24 16:35 11/03/24 18:33 Temperature 97.8 F 98.0 F Temperature Source Oral Oral Pulse Rate 58 L Pulse Rate [Right Radial] 78 Respiratory Rate 18 18 Blood Pressure 119/69 Blood Pressure [Right Arm] 132/55 L Blood Pressure Mean [Right Arm] 80 Blood Pressure Source Automatic Cuff Blood Pressure Source [Right Arm] Automatic Cuff Blood Pressure Position Sitting Blood Pressure Position [Right Arm] Sitting 02 Sat by Pulse Oximetry 100 Oxygen Delivery Method Room Air Room Air Lab Data Lab Results 11/03/24 16:33: SARS-CoV-2 (PCR) Not detected, Influenza A Untype (PCR) Not detected, Influenza Type B (PCR) Not detected 11/03/24 16:57: Urine Color Yellow, Urine Appearance Clear, Urine pH 6.0, Ur Specific [place] 1.025, Urine Protein Negative, Urine Glucose (UA) Negative, Urine Ketones Negative, Urine Blood Negative, Urine Nitrate Negative, Urine Bilirubin Negative, Urine Urobilinogen 0.2, Ur Leukocyte Esterase Negative, Urine RBC None, Urine WBC 3-5, Ur Squamous Epith Cells 5-10, Urine Bacteria 1+, Urine HCG, Qual Negative Orders (Tests/Meds): ED MEDICATIONS Discontinued Medications Generic Name Dose Route Start Last Admin Trade Name Freq PRN Reason Stop Dose Admin Acetaminophen 1,000 mg 11/03/24 16:48 11/03/24 16:53 Acetaminophen 500mg Tab PO 11/03/24 16:49 1,000 mg ONCE ONE Administration Dexamethasone 4 mg 11/03/24 16:42 11/03/24 16:48 Dexamethasone 4mg Tablet PO 11/03/24 16:43 4 mg ONCE ONE Administration Sodium Chloride 1,000 mls @ 999 mls/hr 11/03/24 16:48 11/03/24 18:32 Sod Chlor 0.9% 1000ml Bag IV 11/03/24 17:48 999 mls/hr .Q1H1M ONE Infusion Meclizine HCl 25 mg 11/03/24 16:42 11/03/24 16:48 Meclizine 25mg Tablet PO 11/03/24 16:43 25 mg ONCE ONE Administration ORDERS Category Date Time Status Rapid PCR Covid and Flu A/B Stat Lab 11/03/24 16:33 Completed Urinalysis and Microscopic Stat Lab 11/03/24 16:57 Completed Urine , HCG Qual. Stat Lab 11/03/24 16:57 Completed Medical Decision Narrative: patient is a 29-year-old female presenting to the emergency department for evaluation of dizziness, sensation of spinning with bodyaches. Patient is hemodynamically stable and nontoxic-appearing upon arrival, afebrile. Differential diagnosis includes vertigo, viral illness, flu, COVID, among other things. Workup will be conducted with flu COVID swab. Initial inventions include crystalloid bolus, meclizine, Tylenol, dexamethasone. Patient says that the meds helped some with her symptoms. Discussed with patient that she needs to drink plenty of fluids and rest. She needs to follow- up with PCP for further treatment and management. If any other problems or concerns please return to the ED. <Marilou Skinner, DO - Last Filed: 11/03/24 19:44> Medical Records Medical records reviewed: Yes I reviewed the patient's medical records. Vital Signs: 11/03/24 16:35 11/03/24 18:33 Temperature 97.8 F 98.0 F Temperature Source Oral Oral Pulse Rate 58 L Pulse Rate [Right Radial] 78 Respiratory Rate 18 18 Blood Pressure 119/69 Blood Pressure [Right Arm] 132/55 L Blood Pressure Mean [Right Arm] 80 Blood Pressure Source Automatic Cuff Blood Pressure Source [Right Arm] Automatic Cuff Blood Pressure Position Sitting Blood Pressure Position [Right Arm] Sitting 02 Sat by Pulse Oximetry 100 Oxygen Delivery Method Room Air Room Air Lab Data Lab results reviewed: Yes I reviewed the patient's lab results. Lab Results 11/03/24 16:33: SARS-CoV-2 (PCR) Not detected, Influenza A Untype (PCR) Not detected, Influenza Type B (PCR) Not detected 11/03/24 16:57: Urine Color Yellow, Urine Appearance Clear, Urine pH 6.0, Ur Specific [place] 1.025, Urine Protein Negative, Urine Glucose (UA) Negative, Urine Ketones Negative, Urine Blood Negative, Urine Nitrate Negative, Urine Bilirubin Negative, Urine Urobilinogen 0.2, Ur Leukocyte Esterase Negative, Urine RBC None, Urine WBC 3-5, Ur Squamous Epith Cells 5-10, Urine Bacteria 1+, Urine HCG, Qual Negative Orders (Tests/Meds): ED MEDICATIONS Discontinued Medications Generic Name Dose Route Start Last Admin Trade Name Jessica PRN Reason Stop Dose Admin Acetaminophen 1,000 mg 11/03/24 16:48 11/03/24 16:53 Acetaminophen 500mg Tab PO 11/03/24 16:49 1,000 mg ONCE ONE Administration Dexamethasone 4 mg 11/03/24 16:42 11/03/24 16:48 Dexamethasone 4mg Tablet PO 11/03/24 16:43 4 mg ONCE ONE Administration Sodium Chloride 1,000 mls @ 999 mls/hr 11/03/24 16:48 11/03/24 18:32 Sod Chlor 0.9% 1000ml Bag IV 11/03/24 17:48 999 mls/hr .Q1H1M ONE Infusion Meclizine HCl 25 mg 11/03/24 16:42 11/03/24 16:48 Meclizine 25mg Tablet PO 11/03/24 16:43 25 mg ONCE ONE Administration ORDERS Category Date Time Status Rapid PCR Covid and Flu A/B Stat Lab 11/03/24 16:33 Completed Urinalysis and Microscopic Stat Lab 11/03/24 16:57 Completed Urine , HCG Qual. Stat Lab 11/03/24 16:57 Completed Medical Decision Narrative: patient is a 29-year-old female presenting to the emergency department for evaluation of dizziness, sensation of spinning with bodyaches. Patient is hemodynamically stable and nontoxic-appearing upon arrival, afebrile. Differential diagnosis includes peripheral vertigo, viral illness, flu, COVID, among other things. Workup will be conducted with flu COVID swab. Initial inventions include crystalloid bolus, meclizine, Tylenol, dexamethasone. On exam, patient had worsening of her vertiginous symptoms with head movements and with eye movements, if patient was sitting still she did not have any exacerbation of her symptoms. Did have 1 beat nystagmus horizontally to the left. No vertebral nystagmus low concern for central cause of vertigo. No labs were felt to be indicated. Urine and urine test were obtained. Patient denied any urinary symptoms. Patient's urine did have bacteria and white blood cells but was significantly contaminated, given no urinary symptoms at this time we will allow it to go to culture. Urine negative. Respiratory panel negative. Patient says that the meds helped with her symptoms. Her exam and symptoms are consistent with peripheral vertigo. Discussed with patient that she needs to drink plenty of fluids and rest. She needs to follow-up with PCP for further treatment and management. If any other problems or concerns please return to the ED. Critical Care <Marilou Skniner, DO - Last Filed: 11/03/24 19:44> Critical Care Time Critical Care Time: No
[2024-11-03] MEDS: MECLIZINE 25MG TABLET 25 MG PO (16:48)
[2024-11-03] MEDS: DEXAMETHASONE 4MG TABLET 4 MG PO (16:48)
[2024-11-03] MEDS: ACETAMINOPHEN 500MG TAB 1000 MG PO (16:53)
[2024-11-03] MEDS: 0.9 % SODIUM CHLORIDE 1000ML 1,000 ML 999 ML IV (16:53)
[2024-11-03 17:03] LABS: Microscopic, Urine URINE MICROSCOPIC (MICROSCOPIC)
[2024-11-03 17:12] LABS: Urine Pregnancy, HCG Qual. Negative (Negative)
[2024-11-03 17:13] LABS: Bilirubin,Urine Negative (Negative); Color,Urine YELLOW (Yellow); Glucose,Urine (UA) Negative (Negative); Ketones,Urine Negative (Negative); Leukocyte Esterase,Urine Negative (Negative); PH,Urine 6.0 (5.0-8.5); Protein,Urine Negative (Negative); Specific Gravity, Urine 1.025 (1.005-1.030); Urobilinogen,Urine 0.2 EU/dl (0.2)
[2024-11-03 17:30] LABS: Bacteria,Urine 1+ /lpf
[2024-11-03 18:33] VITALS: BP 119/69; PULSE 58; RESP 18; TEMP 36.7; O2SAT 99
== END 2024-11-03 18:33 | disposition home or self-care (01) ==
PROVIDERS: Nurse Practitioner; Emergency Provider Student in an Organized Health Care Education/Training Program
DX: H81.10 Benign paroxysmal vertigo, unspecified ear (principal); F17.210 Nicotine dependence, cigarettes, uncomplicated
CPT/HCPCS: 81001; 81025; 87636; 96360; 99283; 99284; J7030; J8540

== ENCOUNTER 2025-02-02 19:44 | Emergency (ER) | payer OTHER, SELFPAY ==
--- OUTSIDE RECORDS SUMMARY | 2024-12-22 05:00 | XMS_ITS | Continuity of Care Document ---
Author Organization [facility] Address [address] [place] [address] Phone Care Team Providers Care Pharmacy Technician Trainee Name Role Phone Rohan MSN, M[employer]IM[employer]ERINARIAN, Lin Unavailable Unavai lable Allergies, Adverse Reactions, Alerts Substance Reaction Status Criticality No Known Allergies Active No Inform ation Medications Medication Instructions Dosage Effective Dates (start - stop) Status Comments Vitamin D2 1,250 mcg (50,000 unit) capsule take 1 capsule by oral route every week for 12 weeks 1 capsule - Active loratadine 10 mg tablet take 1 tablet by oral route every day 10 MG - Active triamcinolone acetonide 0.5 % topical cream apply by topical route 2 times every day a thin layer to the affected area(s) 0.00 - Active B12 5,000 mcg-100 mcg sublingual lozenge take one lozenge daily via sublingual route - Active cetirizine 10 mg tablet take 1 tablet by oral route every day 10 MG - Active sertraline 50 mg tablet take 1 tablet by oral route every day 50 MG - Active trazodone 50 mg tablet take 1 tablet by oral route every day at bedtime 50 MG - Active Procedures Procedure Date STREP A ASSAY W/OPTIC OFFICE/OUTPATIENT VISIT, EST Results Test Name Date and Time Measure Units Reference Range Abnormal Flag Status Commen ts Panel Description: Rapid strep Final Rapid strep 10:46:34 negative negative Final Advance Directives Directive Yes / No Effective Date File Name No Information Encounters Encounter Description Practice Location Reason(s) For Visit Diagnoses Date Provider OFFICE/OUTPA TIENT VISIT, [facility], [address] [place] [address], [facility], tel:[phone] [facility] Rash (chief complaint)S ore Throat (chief complaint) Acute pharyngitisBody mass index [BMI] 28.0-28.9, adultRash 5 Mad[address], [place], [id number] , . tel: [phone] [facility], [address] [place] [address], [facility], tel:[phone] rash on katja le (chief complaint) Insect bite (nonvenomous) of left wrist, sequelaBody mass index [BMI] 29.0-29.9, adultStreptococcal sore throatRashInsect bite (nonvenomous) of left wrist, subsequent encounter 5 Madrig[address], [place], [id number] , . tel: [phone] [facility], [address] [place] [address], [facility], tel:[phone] [facility] [place] Follow up on labs (chief complaint) Body mass index [BMI] 28.0-28.9, adultVitamin B12 deficiencyVitamin D deficiencyHyperlipidemia 5 Madrig[address], [place], [id number] , [place]. tel: [phone] [facility], [address] [place] [address], [facility], tel:[phone] [facility] Fasting Labs (chief complaint) Hyperlipidemia 5 Madrig[address], [place], [id number] , [place]. tel: [phone] [facility], [address] [place] [address], [facility], tel:[phone] [facility] [place] rash (chief complaint)s ore throat (chief complaint) Body mass index [BMI] 28.0-28.9, adultAcute pharyngitisStreptococcal sore throatNicotine dependence, cigarettes, uncomplicatedInsect bite (nonvenomous) of left wrist, sequelaInsect bite (nonvenomous) of left wrist, initial encounter Sep- 5 Madrigal Lin[address], [place], [id number] , [place]. tel: [phone] [facility], [address] [place] [address], [facility], tel:[phone] [facility] B12 INJECTION (chief complaint) Vitamin B12 deficiency Jun-2 5 Madrig[address], [place], [id number] , [place]. tel: [phone] [facility], [address] [place] [address], [facility], tel:[phone] [facility] Follow up on labs (chief complaint) Body mass index [BMI] 29.0-29.9, adultVitamin B12 deficiencyVitamin D deficiencyHyperlipidemia Jun- 5 Madrigal Lin[address], [place], [id number] , [place]. tel: [phone] [facility], [address] [place] [address], [facility], tel:[phone] [facility] FASTING LABS (chief complaint) Encounter for screening for diseases of the blood and blood-forming organs and certain disorders involving the immune mechanism Jun-0 5 Madrigal Lin[address], [place], [id number] , [place]. tel: [phone] [facility], [address] [place] [address], [facility], [place] tel:[phone] [facility] Depression screening (chief complaint)P rapare (chief complaint)E staish care (chief complaint) Encounter for screening for depressionEncntr for general adult medical exam w/o abnormal findingsEncounter for immunizationSciatica, right sideBody mass index [BMI] 29.0-29.9, adultNicotine dependence, cigarettes, uncomplicated Jun- Rohan Ceballos. [address] [place], [place], [id number] , [place]. tel: [phone] Family History Family Member Type Diagnosis Age At Onset Son Problem Alive and well Brother Problem Alive and well Maternal grandfather Problem (finding) Paternal grandfather Problem (finding) Son Problem Alive and well Paternal grandmother Problem (finding) Daughter Problem Alive and well Maternal grandmother Problem (finding) Father Problem Diabetes mellitus Maternal grandfather Problem Cancer, brain (Cause Of ) Father Problem Hypercholesterolemia Mother Problem Alive and well Brother Problem Traumatic Brain Injury Father Problem Hypertension Father Problem Alive and well Immunizations Vaccine Date Status Comments Influenza virus vaccine, trivalent (IIV3), split virus, preservative free, 0.5 mL dosage, for intramuscular use administered Source: [place] w Immunization Record Tdap, Adsorbed administered Source: Other Registry COVID-19 mRNA (MOD) administered Source: Other Registry HPV4 (Gardasil) administered Source: [place] HPV4 (Gardasil) administered Source: [place] [facility] Tdap, Adsorbed administered Source: Other Registry HPV4 (Gardasil) administered Source: [facility] Registry Payers Payer name Insurance type Covered constitution party ID Authoriza tion(s) H[place]- Medicaid A[employer] [facility] [place] [id number] Hc- Medicaid Aetna Wrap Payer [id number] [place]- Medicaid [place] [facility] [place] [id number] Hc- Medicaid Aetna Wrap Payer [id number] Social History Type Description Quantity Date Captured Comments Alcohol Use Details No Caffeine Use Details soda 5 cups per day Tobacco Use Status Moderate cigarette smoker (10-19 cigs/day) Smoking Status Heavy tobacco smoker Smoking Tobacco Use Details Cigarette: No Details Available Cigarette: 10 Cigarettes per day, Sex Female Sexual Orientation Choose not to disclose Gender Identity Female Vital Signs Date / Time: Height Weight BMI Pulse Rate Blood Pressure Temperature Respiratory Rate Body Surface Area Head Circumference Head Circ. Percentile Wt./Naga. Percentile BMI percentile Pulse Ox Inhaled Ox 10:37 AM 63.00 in 73.663 kg (162.40 lbs) 28.7 7 kg/m eter (2) 85 /min 109/69 mm[Hg] 98.20 F 18 /min 98 % Chief Complaint And Reason For Visit From encounter dated '12/22/2024 10:00'. Rash (chief complaint). Description: The client presents for Rash. The symptom(s) are described as moderate, improving and occurs daily. Affected area(s) include both arms, abdomen, buttocks, both legs, both thighs and both calves. The client describes the affected area(s) as itchy and oozing. The s ymptoms are associated with fleas previously in home. Aggravating factors include heat and sun exposure. The denies aggravating factors such as clothing and sleeping. Relieving factors include antihistamines and topical steroids. Associated symptoms include pharyngitis and pruritus. Pertinent negatives include bleeding skin, dry skin, easy bleeding, edema and fatigue. Sore Throat (chief complaint). Description: Onset: 2 Days. The severity of the problem is moderate.The problem has not changed. Associated symptoms include pharyngitis. Pertinent negatives include cough, dyspnea, fatigue, fever, headache, otalgia, rash, sinus pressure or wheezing. Additional information: Strep test is negative today. Plan Of Treatment Date Type Action Status Goal Lipid panel. Due on 026 due Goal Tobacco Use Screening. Due o n due Goal Tobacco screening. Due on Oc due Goal Diabetes screening. Due on A due Goal Hepatitis C Screening due Goal Generalized Anxi ety Disorder - 7 (EDWIGE-7). Due on due Goal Obtain Height, Weight, and B LA. Due on due Goal Vitamin D. Due on due Goal CMP. Due on due Goal Drug Abuse Scree maryjo Test (DAST-10). Due on due Goal PAP. Due on due Goal TSH. Due on due Goal Follow up Plan f or abnormal BMI (Less than 18.5, greater than 25). Due on due Goal Unhealthy drug use screening due Goal CBC. Due on due Goal HIV screen due Goal Influenza vaccine. Due on due Goal Depression screening. Due on due Goal Tobacco Use Cess ation Counseling. Due on due Goal Vitamin B12. Due on due Goal Hemoglobin (Pree rosa elena/HR 9 months). Due on due Goal Hematocrit/Hemoglobin. Due o n due Goal Lifestyle education regardin g diet completed Goal Lipid panel. Due on due Goal HIV screen due Goal Tobacco Use Cess ation Counseling. Due on due Goal Vitamin D. Due on due Goal CBC. Due on due Goal Influenza vaccine. Due on due Goal Depression screening. Due on due Goal CMP. Due on due Goal Unhealthy drug use screening due Goal PAP. Due on due Goal Hepatitis C Screening due Goal Vitamin B12. Due on due Goal Generalized Anxi ety Disorder - 7 (EDWIGE-7). Due on due Goal Obtain Height, Weight, and B LA. Due on due Goal Tobacco Use Screening. Due o n due Goal Hematocrit/Hemoglobin. Due o n due Goal Hemoglobin (Pree rosa elena/HR 9 months). Due on due Goal Follow up Plan f or abnormal BMI (Less than 18.5, greater than 25). Due on due Goal Drug Abuse Scree maryjo Test (DAST-10). Due on due Goal Tobacco screening. Due on due Goal TSH. Due on due Goal Diabetes screening. Due on A due Goal Lifestyle education regardin g diet completed Goal Generalized Anxi ety Disorder - 7 (EDWIGE-7). Due on due Goal Tobacco Use Screening. Due o n due Goal Hepatitis C Screening due Goal Influenza vaccine. Due on due Goal Depression screening. Due on due Goal Unhealthy drug use screening due Goal Vitamin B12. Due on due Goal Drug Abuse Scree maryjo Test (DAST-10). Due on due Goal Follow up Plan f or abnormal BMI (Less than 18.5, greater than 25). Due on due Goal CMP. Due on due Goal Vitamin D. Due on due Goal TSH. Due on due Goal Obtain Height, Weight, and B LA. Due on due Goal Diabetes screening. Due on A due Goal PAP. Due on due Goal Tobacco Use Cess ation Counseling. Due on due Goal HIV screen due Goal CBC. Due on due Goal Tobacco screening. Due on due Goal Hemoglobin (Pree rosa elena/HR 9 months). Due on due Goal Hematocrit/Hemoglobin. Due o n due Goal Lipid panel. Due on due Goal Lifestyle education regardin g diet completed Goal Lipid panel. Due on due Goal Obtain Height, Weight, and B LA. Due on due Goal CMP. Due on due Goal Depression screening. Due on due Goal Vitamin D. Due on due Goal Drug Abuse Scree maryjo Test (DAST-10). Due on due Goal Unhealthy drug use screening due Goal Influenza vaccine. Due on due Goal HIV screen due Goal Vitamin B12. Due on due Goal Diabetes screening. Due on A due Goal PAP. Due on due Goal Tobacco screening. Due on due Goal TSH. Due on due Goal Hepatitis C Screening due Goal Follow up Plan f or abnormal BMI (Less than 18.5, greater than 25). Due on due Goal Generalized Anxi ety Disorder - 7 (EDWIGE-7). Due on due Goal CBC. Due on due Goal Tobacco Use Cess ation Counseling. Due on due Goal Tobacco Use Screening. Due o n due Goal Hematocrit/Hemoglobin. Due o n due Goal Hemoglobin (Pree rosa elena/HR 9 months). Due on due Goal Lipid panel. Due on due Goal Generalized Anxi ety Disorder - 7 (EDWIGE-7). Due on due Goal CBC. Due on due Goal Depression screening. Due on due Goal Tobacco screening. Due on due Goal Tobacco Use Cess ation Counseling. Due on due Goal Obtain Height, Weight, and B LA. Due on due Goal HIV screen due Goal Drug Abuse Scree maryjo Test (DAST-10). Due on due Goal TSH. Due on due Goal Unhealthy drug use screening due Goal Vitamin B12. Due on due Goal Follow up Plan f or abnormal BMI (Less than 18.5, greater than 25). Due on due Goal CMP. Due on due Goal Hepatitis C Screening due Goal Diabetes screening. Due on due Goal Vitamin D. Due on due Goal Tobacco Use Screening. Due o n due Goal Influenza vaccine. Due on due Goal PAP. Due on due Goal Lifestyle education regardin g diet completed Goal Tobacco cessation counseling completed Goal Lipid panel. Due on due Goal Diabetes screening. Due on due Goal Follow up Plan f or abnormal BMI (Less than 18.5, greater than 25). Due on due Goal Unhealthy drug use screening due Goal Influenza vaccine. Due on due Goal Generalized Anxi ety Disorder - 7 (EDWIGE-7). Due on due Goal Tobacco Use Cess ation Counseling. Due on due Goal Hepatitis C Screening due Goal Tobacco Use Screening. Due o n due Goal CMP. Due on due Goal Depression screening. Due on due Goal Vitamin B12. Due on due Goal Tobacco screening. Due on due Goal Obtain Height, Weight, and B LA. Due on due Goal TSH. Due on due Goal Drug Abuse Scree maryjo Test (DAST-10). Due on due Goal Vitamin D. Due on due Goal PAP. Due on due Goal CBC. Due on due Goal HIV screen due Goal Lipid panel. Due on due Goal Depression screening. Due on due Goal HIV screen due Goal Follow up Plan f or abnormal BMI (Less than 18.5, greater than 25). Due on due Goal Obtain Height, Weight, and B LA. Due on due Goal Unhealthy drug use screening due Goal CMP. Due on due Goal Tobacco Use Screening. Due o n due Goal Diabetes screening. Due on A due Goal Drug Abuse Scree maryjo Test (DAST-10). Due on due Goal Vitamin D. Due on due Goal Tobacco Use Cess ation Counseling. Due on due Goal Hepatitis C Screening due Goal PAP. Due on due Goal TSH. Due on due Goal Generalized Anxi ety Disorder - 7 (EDWIGE-7). Due on due Goal Vitamin B12. Due on due Goal Influenza vaccine. Due on due Goal Tobacco screening. Due on due Goal CBC. Due on due Goal Lifestyle education regardin g diet completed Goal Diabetes screening. Due on A due Goal Vitamin D. Due on due Goal Drug Abuse Scree maryjo Test (DAST-10). Due on due Goal Obtain Height, Weight, and B LA. Due on due Goal Influenza vaccine. Due on due Goal TSH. Due on due Goal Vitamin B12. Due on due Goal PAP. Due on due Goal Hepatitis C Screening. Due o n due Goal Generalized Anxi ety Disorder - 7 (EDWIGE-7). Due on due Goal Tobacco screening. Due on due Goal Follow up Plan f or abnormal BMI (Less than 18.5, greater than 25). Due on due Goal Tobacco Use Cess ation Counseling. Due on due Goal HIV screen. Due on due Goal Unhealthy drug use screening due Goal CMP. Due on due Goal Tobacco Use Screening. Due o n due Goal Depression screening. Due on due Goal CBC. Due on due Goal Lipid panel. Due on due Goal Tobacco screening. Due on due Goal HIV screen. Due on due Goal Lipid panel. Due on due Goal Drug Abuse Scree maryjo Test (DAST-10). Due on due Goal PAP. Due on due Goal Obtain Height, Weight, and B LA. Due on due Goal Vitamin D. Due on due Goal Unhealthy drug use screening due Goal Tobacco Use Screening. Due o n due Goal Vitamin B12. Due on due Goal Tobacco Use Cess ation Counseling. Due on due Goal Depression screening. Due on due Goal TSH. Due on due Goal Hepatitis C Screening. Due o n due Goal Influenza vaccine. Due on Ap due Goal Diabetes screening. Due on A due Goal Generalized Anxi ety Disorder - 7 (EDWIGE-7). Due on due Goal CMP. Due on due Goal CBC. Due on due Goal Follow up Plan f or abnormal BMI (Less than 18.5, greater than 25). Due on due Goal Lifestyle education regardin g diet completed Goal Tobacco cessation counseling completed Appointment Naomi [facility] History Of Present Illness Encounter Date Complaint History Of Prese nt Illness Sore Throat Onset: 2 Days. T he severity of the problem is moderate. The problem has not changed. Associated symptoms include pharyngitis. Pertinent negatives include cough, dyspnea, fatigue, fever, headache, otalgia, rash, sinus pressure or wheezing. Additional information: Strep test is negative today. Rash The client prese nts for Rash. The symptom(s) are described as moderate, improving and occurs daily. Affected area(s) include both arms, abdomen, buttocks, both legs, both thighs and both calves. The client describes the affected area(s) as itchy and oozing. The symptoms are associated with fleas previously in home. Aggravating factors include heat and sun exposure. The denies aggravating factors such as clothing and sleeping. Relieving factors include antihistamines and topical steroids. Associated symptoms include pharyngitis and pruritus. Pertinent negatives include bleeding skin, dry skin, easy bleeding, edema and fatigue. rash on katja aminah Campos is here to day for a continued rash that began on her ankles in September. Today she is covered head to toe with rash, but mostly on katja LE and arms. Her umbilical and butt crack has circular areas of maculapapular rash. It is puretic. upper arms look more like streaks/contact dermatitis.In September Naomi had said she has a flea infestation in her home.She reports she did do flea treatment for the home and for her pets.In September she was given triamcinalone for the rash. She has used it and it has not helped, but minimally.Prior to her visit here in September she was seen in urgent care and treated for scabies. She denies fever or malaise, but does have white exudate on left side of throat. She states no one else in the home has this rash. She has not tried new soaps/foods/perfumes that would be a likely cause.Today we discussed her home life- reports is clean, no bed bugs or fleas.States this happens in the summer. I have refilled the triamcinaloneInfection prevention was discussed from scratching. Practice good handwashing and hygiene. She voiced understanding.Again reporting cost is an issue.Strep testing was + in officePt treated with Bicillin L-A and depo 80 mg She is to RTC next week if not improved. Follow up on labs Naomi is here today to follow up on recent lab results.Overall labs are ok.Vit B12 and vit D remain lowshe did not get the medication r/t unable to afford it.She states the B12 injections caused chest tightnessRecent loss of her Uncle- her ride or feeling down Fasting Labs Pt is here today to have fasting labs collected. 1x attempt in right ac with butterfly needle. Successfully collected 3 tubes, pt tolerated well, gauze and coban applied, pt instructed to remove in 5-10 minutes, pt voiced understanding. Pt is scheduled to rtc in 2 weeks to follow up on lab results. rash The client prese nts for rash. This episode began 1 month ago. The symptom(s) are described as mild, unchanged and occurs seasonally. Affected area(s) include both arms, both hands, both calves and both feet. The client describes the affected area(s) as itchy and red. The symptoms are not associated with contact with chemicals, contact with plants, new perfume, recent travel and stress. Aggravating factors include heat and sweating. The denies aggravating factors such as soaps. The symptoms are not relieved by antifungal cream or antihistamines. Associated symptoms include erythema (skin) and pruritus. Pertinent negatives include bleeding skin, dry skin, edema and urticaria. Relevant history positive for history of atopic dermatitis. Additional information: pt reports she does have pets in the house and know she has fleas. Fleas get on her ankles and wrist, and jump. Only being in water helps. Recent treatment for scabies- no resolve. sore throat The severity of the problem is moderate. The problem has worsened. Symptoms are associated with history of allergies, recent cold and smoker. Symptoms are not associated with dental infection, exposure to strep, history of asthma and sick family member. Aggravating factors include allergens and smoke. Symptoms are not relieved by antihistamines or decongestants. Associated symptoms include chills/rigors, cough, fatigue, headache, myalgia, pharyngitis and postnasal drainage. Pertinent negatives include dyspnea, facial pain, fever or nasal congestion. B12 INJECTION Naomi is here th is morning for B12 injection #2 of 6. Administered into right deltoid, pt tolerated well, band aide applied. Follow up on labs Naomi is here to follow up on recent lab results.B12 low 269, folate 3.3Will start B12 injections x 6 weeksTotal cholesterol 201, HDL 28, LDL 128, trigs 252diet modification needed- reports eating a lot of fast [id number] 5.2Vit D 11.6- will start weekly supplement. FASTING LABS NAOMI IS HERE TO DAY TO HAVE FASTING LABS COLLECTED. SUCCESSFULLY COLLECTED 3 TUBES, PT TOLERATED WELL. PT IS SCHEDULED TO RTC IN 1 WEEK TO FOLLOW UP ON LAB RESULTS. Depression screening Depression screening completed 06/16/2024. Pt scored 0, provider aware. -SHANTI,JUAN MANUEL Prapare Prapare complete d 06/16/24. -JUAN MANUEL MOSER Establish care Naomi is a 28 yo female here today to establish care.[facility] [place] and it is more convenient to comer here.She voices no problems todayShe is not fasting today. Will return tomorrow for fasting lab collection. PMH: Anxiety/depressionSees [facility]/ Krysta Bowen, APRNFlu vaccine given todayShhany reports that she has rt lower back pain x 2-3 weeks. Denies incontinence of urine/stoolUA wnl here todayHgc urine neg todaydenies accident or injury. 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 Instructions Date Instruction Additional Infor maren Patient counseled on doing warm salt water gargles, completing any and all medications prescribed, may use OTC analgesics as needed. Related to Acute pharyngitis Giving encouragement to exercise Related to Body mass index [BMI] 28.0-28.9, adult Lifestyle education regarding di et Related to Body mass index [BMI] 28.0-28.9, adult Apply Triamsinolone to affected r ea two times daily, to affected area. Do not use on your face. Use cool compresses to area, wear loose fitting cotton clothing. My take aveeno bath. Do not use any soap with dyes or perfumes in it. It may be beneficial to use a moisturizing ointment such as cerevae or payne two times daily to aid w/ inflammation. Related to Rash Patient counseled on doing warm salt water gargles, completing any and all medications prescribed, may use OTC analgesics as needed.Bicillin L-A in office Related to Streptococcal sore throat Giving encouragement to exercise Related to Body mass index [BMI] 29.0-29.9, adult Lifestyle education regarding di et Related to Body mass index [BMI] 29.0-29.9, adult 15 minutes of sun ex posure daily to naturally raise vitamin D levels Related to Vitamin D deficiency Eat foods rich in B- 12. Additional oral B12 replacement if indicated. Related to Vitamin B12 deficiency Low fat, low cholest seda diet. Avoid fatty, fried, and greasy foods. Physical activity as tolerated. Counseled on risks of associated comorbidities, such as heart disease and stroke. Encouraged avoidance of tobacco products. Related to Hyperlipidemia Giving encouragement to exercise Related to Body mass index [BMI] 28.0-28.9, adult Lifestyle education regarding di et Related to Body mass index [BMI] 28.0-28.9, adult Multiple flea bites: You must treat your pets for fleas and treat you home in order to rid you home of fleas. Apply Triamcinalone BID to bitten areas of skin.May use cetirizine as instructed. Related to Insect bite (nonvenomous) of left wrist, sequela It is recommended to stop smoking/vaping to increase overall health and decrease risk of cardiovascular disease. If you wish to stop smoking/vaping, there is a free online [place] from smoking course offered through our local health department. You may call [phone] for more information. Related to Nicotine dependence, cigarettes, uncomplicated Bicillin LA in offic e today. May take with food to ease stomach irritation. If you experience frequent yeast infections, you may consider taking an OTC probiotic like culturell or align while taking antibiotics. Related to Streptococcal sore throat Patient counseled on doing warm salt water gargles, completing any and all medications prescribed, may use OTC analgesics as needed. Related to Acute pharyngitis Giving encouragement to exercise Related to Body mass index [BMI] 28.0-28.9, adult Lifestyle education regarding di et Related to Body mass index [BMI] 28.0-28.9, adult 15 minutes of sun ex posure daily to naturally raise vitamin D levels Related to Vitamin D deficiency Low fat, low cholest seda diet. Avoid fatty, fried, and greasy foods. Physical activity as tolerated. Counseled on risks of associated comorbidities, such as heart disease and stroke. Encouraged avoidance of tobacco products. Related to Hyperlipidemia B-12 injection given in office today. Eat foods rich in B-12. Additional oral B12 replacement if indicated. Related to Vitamin B12 deficiency Giving encouragement to exercise Related to Body mass index [BMI] 29.0-29.9, adult Lifestyle education regarding di et Related to Body mass index [BMI] 29.0-29.9, adult It is recommended to stop smoking/vaping to increase overall health and decrease risk of cardiovascular disease. If you wish to stop smoking/vaping, there is a free online [place] from smoking course offered through our local health department. You may call [phone] for more information. Related to Nicotine dependence, cigarettes, uncomplicated Patient instructed o n appropriate use of medications prescribed for back pain. Discussed conservative measures such as heat, ice, gentle strength stretching, and core muscle strengthening. Avoid heavy lifting, pulling, or tugging. Contact the clinic if any worsening or new symptoms related to back pain occur. Related to Sciatica, right side You may have some mi ld discomfort, chills, or a sore arm in the next 24 hrs. If needed you may take tylenol per packing instructions Related to Encounter for immunization Eat a healthy balanc ed diet with a variety of fruits and vegetables.Limit sweets.[place] your teeth at least two times daily. Make an appt with a dentist for a routine exam.Routine eye exam recommended-recently completedSleep for at least 8 hours nightly.exercise daily 30 min, 5 days weekly as per AHA guidelinesReturn annually for wellness checks.Get routine vaccines as per schedule. Related to Encntr for general adult medical exam w/o abnormal findings Giving encouragement to exercise Related to Body mass index [BMI] 29.0-29.9, adult Lifestyle education regarding di et Related to Body mass index [BMI] 29.0-29.9, adult Assessments Type Assessment Date assessment Acute pharyngitis assessment Body mass index [BMI] 28.0-28.9, adult assessment Rash Mental Status Date Cognitive Assessment Orientation - [place] ed to time, place, person, situation.
--- OUTSIDE RECORDS SUMMARY | 2024-12-22 05:00 | XMS_ITS | Continuity of Care Document ---
Author Organization [facility] Address [address] [place] [address] Phone Care Team Providers Care Soap Mixer Name Role Phone Rohan MSN, IMPROVEMENT SPECIALIST, Lin Unavailable Unavai lable Allergies, Adverse Reactions, [...] Visit Diagnoses Date Provider OFFICE/OUTPA TIENT VISIT, [facility], [address] [place] [address], [facility], tel:[phone] [facility] [place] Rash (chief complaint)S ore Throat (chief complaint) Acute pharyngitisBody mass index [BMI] 28.0-28.9, adultRash 5 Madrigal Lin. [address] [place], [place], [id number] , . tel: [phone] [facility], [address] [place] [address], [facility], tel:[phone] [facility] [place] rash on katja le (chief complaint) Insect bite (nonvenomous) of left wrist, sequelaBody mass index [BMI] 29.0-29.9, adultStreptococcal sore throatRashInsect bite (nonvenomous) of left wrist, subsequent encounter 5 Madrig[address] [place], [place], [id number] , . tel: [phone] [facility], [address] [place] [address], [facility], tel:[phone] [facility] [place] Follow up on labs (chief complaint) Body mass index [BMI] 28.0-28.9, adultVitamin B12 deficiencyVitamin D deficiencyHyperlipidemia 5 Madrig[address] [place], [place], [id number] , [place]. tel: [phone] [facility], [address] [place] [address], [facility], tel:[phone] [facility] [place] Fasting Labs (chief complaint) Hyperlipidemia 5 Madrig[address] [place], [place], [id number] , [place]. tel: [phone] [facility], [address] [place] [address], [facility], tel:[phone] [facility] [place] rash (chief complaint)s ore throat (chief complaint) Body mass index [BMI] 28.0-28.9, adultAcute pharyngitisStreptococcal sore throatNicotine dependence, cigarettes, uncomplicatedInsect bite (nonvenomous) of left wrist, sequelaInsect bite (nonvenomous) of left wrist, initial encounter Sep- 5 Madrigal Lin. [address] [place], [place], [id number] , [place]. tel: [phone] [facility], [address] [place] [address], [facility], tel:[phone] [facility] [place] B12 INJECTION (chief complaint) Vitamin B12 deficiency Jun-2 5 Madrigal Lin[address] [place], [place], [address] , [place]. tel: [phone] [facility], [address] [place] [address], [facility], tel:[phone] [facility] [place] Follow up on labs (chief complaint) Body mass index [BMI] 29.0-29.9, adultVitamin B12 deficiencyVitamin D deficiencyHyperlipidemia Jun- 5 Madrigal Lin. [address] [place], [place], [id number] , [place]. tel: [phone] [facility], [address] [place] [address], [facility], tel:[phone] [facility] [place] FASTING LABS (chief complaint) Encounter for screening for diseases of the blood and blood-forming organs and certain disorders involving the immune mechanism Jun-0 5 Madrigal Lin. [address] [place], [place], [address] , [place]. tel: [phone] [facility], [address] [place] [address], [facility], [place] tel:[phone] [facility] [place] Depression screening (chief complaint)P rapare (chief complaint)E staish care (chief complaint) Encounter for screening for depressionEncntr for general adult medical exam w/o abnormal findingsEncounter for immunizationSciatica, right sideBody mass index [BMI] 29.0-29.9, adultNicotine dependence, cigarettes, uncomplicated Jun- Rohan Ceballos. [address] [place], [place], [address] , [place]. tel: [phone] Family History Family Member Type Diagnosis Age [...] Registry Payers Payer name Insurance type Covered libertarian ID Authoriza tion(s) Hc- [place] [id number] Hc- Medicaid Aetna Wrap Payer [id number] Hc- Medicaid [place] [id number] Hc- Medicaid Aetna Wrap Payer [id number] Social History Type Description Quantity Date Captured [...] due Goal Obtain Height, Weight, and B CO. Due on due Goal Vitamin D. Due [...] due Goal Obtain Height, Weight, and B CO. Due on due Goal Tobacco Use Screening. [...] due Goal Obtain Height, Weight, and B CO. Due on due Goal Diabetes screening. Due [...] due Goal Obtain Height, Weight, and B CO. Due on due Goal CMP. Due on [...] due Goal Obtain Height, Weight, and B CO. Due on due Goal HIV screen due [...] due Goal Obtain Height, Weight, and B CO. Due on due Goal TSH. Due on [...] due Goal Obtain Height, Weight, and B CO. Due on due Goal Unhealthy drug use [...] due Goal Obtain Height, Weight, and B CO. Due on due Goal Influenza vaccine. Due [...] due Goal Obtain Height, Weight, and B CO. Due on due Goal Vitamin D. Due [...] needed- reports eating a lot of fast [id number] 5.2Vit D 11.6- will start weekly supplement. [...] establish care.[place] P[facility] [place] here with [facility] behavioral health and it is more convenient to comer here.She voices no problems todayShe is not fasting today. Will return tomorrow for fasting lab collection. PMH: Anxiety/depressionSees [facility]/ Krysta Bowen, APRNFlu vaccine given todayShhany reports that she has rt lower back pain x 2-3 weeks. Denies incontinence of urine/stoolUA wnl here todayHgc urine neg todaydenies accident or injury. 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 Instructions [...] stop smoking/vaping, there is a free online [place] from smoking course offered through our local health department. You may call [phone] for more information. Related to Nicotine dependence, [...] stop smoking/vaping, there is a free online [place] from smoking course offered through our local health department. You may call [phone] for more information. Related to Nicotine dependence, [...] with a variety of fruits and vegetables.Limit sweets.[place] your teeth at least two times daily. [...] Mental Status Date Cognitive Assessment Orientation - [place] ed to time, place, person, situation.
--- OUTSIDE RECORDS SUMMARY | 2024-12-22 05:00 | XMS_ITS | Continuity of Care Document ---
Author Organization [facility] Address [address] [place] [address] Phone Care Team Providers Care Community Health Specialist Name Role Phone Rohan MSN, CONTRACTING MANAGER, Lin Unavailable Unavai lable Allergies, Adverse Reactions, [...] Visit Diagnoses Date Provider OFFICE/OUTPA TIENT VISIT, [facility], [address] [place] [address], [facility], tel:[phone] [facility] [place] Rash (chief complaint)S ore Throat (chief complaint) Acute pharyngitisBody mass index [BMI] 28.0-28.9, adultRash 5 Madrigal Lin. [address] [place], [place], [id number] , . tel: [phone] [facility], [address] [place] [address], [facility], tel:[phone] [facility] [place] rash on katja le (chief complaint) Insect bite (nonvenomous) of left wrist, sequelaBody mass index [BMI] 29.0-29.9, adultStreptococcal sore throatRashInsect bite (nonvenomous) of left wrist, subsequent encounter 5 Madrigal Lin. [address] [place], [place], [address] , . tel: [phone] [facility], [address] [place] [address], [facility], tel:[phone] [facility] Follow up on labs (chief complaint) Body mass index [BMI] 28.0-28.9, adultVitamin B12 deficiencyVitamin D deficiencyHyperlipidemia 5 Madrigal Lin. [address] [place], [place], [id number] , [place]. tel: [phone] [facility], [address] [place] [address], [facility], tel:[phone] [facility] Fasting Labs (chief complaint) Hyperlipidemia 5 Madrigal Lin[address] [place], [place], [address] , [place]. tel: [phone] [facility], [address] [place] [address], [facility], tel:[phone] [facility] rash (chief complaint)s ore throat (chief complaint) Body mass index [BMI] 28.0-28.9, adultAcute pharyngitisStreptococcal sore throatNicotine dependence, cigarettes, uncomplicatedInsect bite (nonvenomous) of left wrist, sequelaInsect bite (nonvenomous) of left wrist, initial encounter Sep- 5 Madrigal Lin[address] [place], [place], [address] , [place]. tel: [phone] [facility], [address] [place] [address], [facility], tel:[phone] [facility] B12 INJECTION (chief complaint) Vitamin B12 deficiency Jun-2 5 Madrigal Lin[address] [place], [place], [address] , [place]. tel: [phone] [facility], [address] [place] [address], [facility], tel:[phone] [facility] Follow up on labs (chief complaint) Body mass index [BMI] 29.0-29.9, adultVitamin B12 deficiencyVitamin D deficiencyHyperlipidemia Jun- 5 Madrigal Lin. [address] [place], [place], [address] , [place]. tel: [phone] [facility], [address] [place] [address], [facility], tel:[phone] [facility] FASTING LABS (chief complaint) Encounter for screening for diseases of the blood and blood-forming organs and certain disorders involving the immune mechanism Jun-0 5 Madrigal Lin. [address] [place], [place], [id number] , [place]. tel: [phone] [facility], [address] [place] [address], [facility], [place] tel:[phone] [facility] Depression screening (chief complaint)P rapare (chief complaint)E staish care (chief complaint) Encounter for screening for depressionEncntr for general adult medical exam w/o abnormal findingsEncounter for immunizationSciatica, right sideBody mass index [BMI] 29.0-29.9, adultNicotine dependence, cigarettes, uncomplicated Jun- Rohan Ceballos. [address] [place], [place], [address] , [place]. tel: [phone] Family History Family Member Type Diagnosis Age [...] Registry Payers Payer name Insurance type Covered alliance party ID Authoriza tion(s) Hc- Medicaid A[place] [id number] Hc- Medicaid Aetna Wrap Payer ZZ [id number] H[place]- Medicaid [place] [id number] Hc- Medicaid Aetna Wrap Payer [id number] Social History Type Description Quantity Date Captured [...] due Goal Obtain Height, Weight, and B PR. Due on due Goal Vitamin D. Due [...] due Goal Obtain Height, Weight, and B PR. Due on due Goal Tobacco Use Screening. [...] due Goal Obtain Height, Weight, and B PR. Due on due Goal Diabetes screening. Due [...] due Goal Obtain Height, Weight, and B PR. Due on due Goal CMP. Due on [...] due Goal Obtain Height, Weight, and B PR. Due on due Goal HIV screen due [...] due Goal Obtain Height, Weight, and B PR. Due on due Goal TSH. Due on [...] due Goal Obtain Height, Weight, and B PR. Due on due Goal Unhealthy drug use [...] due Goal Obtain Height, Weight, and B PR. Due on due Goal Influenza vaccine. Due [...] due Goal Obtain Height, Weight, and B PR. Due on due Goal Vitamin D. Due [...] needed- reports eating a lot of fast [id number] 5.2Vit D 11.6- will start weekly supplement. [...] establish care.Previous [facility] [place] patient here with [facility] behavioral [facility] and it is more convenient to comer here.She voices no problems todayShe is not fasting today. Will return tomorrow for fasting lab collection. PMH: Anxiety/depressionSees [facility]/ Krysta Bowen, APRNFlu vaccine given todayShhany reports that she has rt lower back pain x 2-3 weeks. Denies incontinence of urine/stoolUA wnl here todayHgc urine neg todaydenies accident or injury. 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 [...] stop smoking/vaping, there is a free online [place] from smoking course offered through our local health department. You may call [phone] for more information. Related to Nicotine dependence, [...] stop smoking/vaping, there is a free online [place] from smoking course offered through our local health department. You may call [phone] for more information. Related to Nicotine dependence, [...] with a variety of fruits and vegetables.Limit sweets.[place] your teeth at least two times daily. [...] Mental Status Date Cognitive Assessment Orientation - [place] ed to time, place, person, situation.
[2025-02-02 20:06] VITALS: BP 125/61; PULSE 78; RESP 16; TEMP 36.3; O2SAT 100; BMI 28.3
--- OUTSIDE RECORDS SUMMARY | 2025-02-02 20:15 | XMS_ITS | Clinical Summary ---
Author Organization [facility] Address [address] [place] [address] Care Team Providers Care Sweeper Operator Highways Name Role Phone Bernardo Lr MD Primary Care Provider [phone] Allergies Active Allergy Reactions Criticality Noted Date [...] of depression 08/22/2018 Single liveborn[facility] delivered by section 08/19/2018 Resolved Problems Problem [...] Brief Depression Severity Measure Score 0 10/09/2022 [place] Depression Scale Answer Date Recorded [place] Depression Scale Total 10 08/20/2018 The thought of harming myself has occurred to me . Unrecognized value 08/20/2018 PHQ-2 Answer Date Recorded Retired [...] PAP SMEAR 10/27/2016 ANNUAL PHYSICAL 10/10/2023 10/09/2022 INFLUENZA VACCINE 10/15/2024 TDAP/TD VACCINES (3 - Td or Tdap) [...] 11:08 AM EDT 10/10/2022 Comment:Urine Release to [facility] kait Lou [facility] ([facility]) - 10/11/2022 7:07 AM EDT Performed at: 01 - Lab[address]JustenFrancisco [place] [id number] Baking Factory Worker: Regina Carmona MD, Phone: [phone] Bernardo Lr MD MICROBIOLOGY - GENERAL ORDERAB LES Final Result Performing Organization Address [facility]/ZIP Co de Phone Number [facility] [address] [place] [address], [place] [phone] [facility] [address] [place] [address], * Hepatitis C Antibody (10/09/2022 11:07 AM [...] 11:07 AM EDT 10/10/2022 Comment:Blood Release to [facility] (AMBULATORY) - 10/10/2022 1:06 PM EDT Performed at: - [facility] [address] [place], [place] [id number] Baking Factory Worker: Thor Redding PhD, Phone: [phone] Bernardo Lr MD LAB BLOOD ORDERABLES Final Res ult Performing Organization Address [facility]/ZIP Co de Phone Number [facility] (AMBULATORY) [address] [place] [address], [place] [phone] [facility] [address] [place] [address], [place] [phone] from Last 3 Months or Most Recently Relevant to Health Maintenance Insurance [facility] Advance Directives * CPR (Attempt to [...] pulse or is breathing): Full Care Teams Sweeper Operator Highways Relationship Specialty Start Date End Date Bernardo Lr MD [address] [place] [address] [place] [address] PCP - General Internal Medicine 08/09/22
--- OUTSIDE RECORDS SUMMARY | 2025-02-02 20:15 | XMS_ITS | Clinical Summary ---
Author Organization [facility] Address [address] [place] [address] Care Team Providers Care Sewer Repairer Name Role Phone Bernardo Lr MD Primary Care Provider [phone] Allergies Active Allergy Reactions Criticality Noted Date [...] 19+ 3-dose series) 10/27/2014 [facility]-Pap Smear 10/27/2016 [facility]-Depression Screening 07/16/2024 07/17/2023 [facility]-XSDPD-45 Vaccine (2 - season) 2024 11/21/2021 [facility]-Influenza Vaccine (#1) 2024 [facility]-DTaP,Tdap,and Td Vaccine [...] Non Reactive 04/14/2023 6:45 PM EST [facility] Comment:Screening for HIV 1 & 2 antibodies, and P24 antigen is NONREACTIVE. No confirmatory testing is required. Blood Venous blood specimen / Unknown Venipuncture / Unknown 04/14/2023 5:58 PM EST 04/14/2023 6:06 PM EST [facility] BLOOD ORDERABLES Final Result [facility] [address] [place] [address] * Hepatitis C Antibody - ED (04/14/2023 5:58 PM EST) Hepatitis C Antibody Negative Negative 04/14/2023 6:40 PM EST [facility] Blood Venous blood specimen / Unknown Venipuncture / Unknown 04/14/2023 5:58 PM EST 04/14/2023 6:06 PM EST [facility] BLOOD ORDERABLES Final Result [facility] [address] [place] [address] from Last 3 Months or Most Recently Relevant to Health Maintenance Insurance MEDICAID Care Teams Sewer Repairer Relationship Specialty Start Date End Date Bernardo Lr MD [address] [place] [address] [place] [address] PCP - General 07/28/20
--- OUTSIDE RECORDS SUMMARY | 2025-02-02 20:15 | XMS_ITS | Patient Health Record ---
Author Organization [facility] Address [address] [facility] [address] [place] [address] Care Team Providers Care Medical Laboratory Technologist Name Role Phone Eliana Dia Unavailable [phone] Allergies Allergen (clinical drug ingredient) Drug/Non Drug Allergy documented on EMR Reaction Allergy Type Onset Date Status LATEX EXAM GLOVES (DISPOSABLE GLOVES) Unspecified Drug Allergy 02/11/2018 Active Reason For Referral No Information Problems Problem Type SNOMED Code ICD Code Onset Dates Problem Status W/U Status Risk Notes Problem Urine test negative (470969246) Encounter for test with result negative (Z32.02) 0 Active confirmed Urine test negative Plan Of Treatment No Information Medical (General) History Medical History History ICD Code Anxiety Depression UTI's Recurrent Yeast Infection FLAGYL 500 MG ORAL TABLET, ORAL Surgical History Surgery Date(Month/Year) section - 12-26-15, Se ction - 06-03-17
--- NOTE | 2025-02-02 20:25 | CT_ITS ---
PROCEDURE INFORMATION: Exam: CT Abdomen And Pelvis With Contrast Exam date and time: 02/02/2025 8:57 PM Age: 29 years old Clinical indication: Vomiting; Abdominal pain; Additional info: Llq abd pain; Cyclical vomiting TECHNIQUE: Imaging protocol: Computed tomography of the abdomen and pelvis with contrast. Radiation optimization: All CT scans at this facility use at least one of these dose optimization techniques: automated exposure control; mA and/or kV adjustment per patient size (includes targeted exams where dose is matched to clinical indication); or iterative reconstruction. Contrast material: ISOVUE; Contrast volume: 75 ml; Contrast route: IV; COMPARISON: CT ABDOMEN PELVIS W CON 08/07/2022 8:19 PM FINDINGS: Liver: Unremarkable. Gallbladder and biliary ducts: Gallbladder is contracted and otherwise unremarkable. No biliary ductal dilation. Pancreas: No evidence of acute pancreatitis. No pancreatic ductal dilation. Spleen: Unremarkable. Adrenal glands: Unremarkable. Kidneys and ureters: Normal symmetric renal nephrograms. No renal or ureteral stones. No hydronephrosis. Stomach and bowel: Unremarkable. Appendix: Appendix is visualized and is normal. Intraperitoneal space: No free fluid. No pneumoperitoneum. Vasculature: Unremarkable. Lymph nodes: Unremarkable. Urinary bladder: Unremarkable. Reproductive: No evidence of adnexal mass or adnexal varices. CT appearance of reproductive organs is otherwise unremarkable as visualized. Bones/joints: No evidence of acute osseous abnormality. Soft tissues: Unremarkable. IMPRESSION: No evidence of acute intra-abdominal pathology or other abnormality to explain left lower quadrant pain and/or cyclical vomiting. If there is clinical concern for endometriosis, pelvic MRI could better evaluate.
[2025-02-02] MEDS: ONDANSETRON 4MG/2ML VIAL 4 MG IV (20:36)
[2025-02-02] MEDS: LACTATED RINGERS 1000ML 1,000 ML 999 ML IV (20:36)
[2025-02-02 20:37] LABS: Microscopic, Urine URINE MICROSCOPIC (MICROSCOPIC)
[2025-02-02 20:38] LABS: Bilirubin,Urine Negative (Negative); Color,Urine YELLOW (Yellow); Glucose,Urine (UA) Negative (Negative); Ketones,Urine Negative (Negative); Leukocyte Esterase,Urine Negative (Negative); PH,Urine 6.5 (5.0-8.5); Protein,Urine Negative (Negative); Specific Gravity, Urine 1.010 (1.005-1.030); Urobilinogen,Urine 1.0 EU/dl (0.2)
[2025-02-02] MEDS: KETOROLAC 30MG/ML VIAL 15 MG IV (20:38)
[2025-02-02 20:40] LABS: Chloride 104 mmol/L (98-107); Potassium 3.9 mmoL/L (3.5-5.1); Sodium 142 mmol/L (136-145)
--- NOTE | 2025-02-02 20:40 | ED_ITS ---
Discharge Plan Disposition Patient Disposition: Home, Self-Care Prescriptions Prescriptions: New ondansetron 4 mg tablet,disintegrating 4 mg PO Q6H PRN (Reason: nausea and vomiting) 5 Days Qty: 20 0RF No Action cyanocobalamin (vitamin B-12) 500 mcg tablet 500 mcg PO DAILY fluticasone propionate [Flonase Allergy Relief] 50 mcg/actuation spray,suspension 2 spray intranasal BID Qty: 16 3RF Rx Instructions: administer into each nostril meclizine 12.5 mg tablet 12.5 mg PO TID 20 Days Qty: 60 0RF Referrals Follow up/Referrals: Alexander Ramos II, MD [Staff Physician, Gastroenterology] - See instructions Lin Madrigal APRN [Primary Care Provider, Medical] - See instructions Activity Restrictions/Add. Instructions Additional Instructions/Restrictions: No emergent cause identified tonight to explain the chronic lower abdominal discomfort and cyclical vomiting. I recommend he follow-up with Dr. Ramos at his earliest available appointment. Return to the emergency room with any significant worsening of your symptoms. Clinical Impressions Clinical Impression: Cyclical vomiting, Abdominal pain, LLQ Instructions Patient Instructions: DI for Acute Abdominal Pain Print Language Print Language: Estonian Discharge ED Provider: Dario Calvo General Adult HPI General Chief complaint: Abdominal Pain Stated complaint: abdominal pain Time Seen by Provider: 02/02/25 20:15 Mode of Arrival: Ambulatory Source of Information: Patient Description of Symptoms (Recalled from ER Triage Doc. by RN): Pt states she has had abdominal pain for years, but this current stomach pain feels different. Pt states her stomach feels heavy. Pt states she has also been sleeping a lot lately. History of Present Illness HPI narrative: Patient is a 29-year-old presents today with acute on chronic cyclical vomiting and abdominal pain. She states that symptoms similar to what she is experiencing today began 5 years ago when her kids were taken from her and she had significant anxiety and stress which she felt were the cause of her symptoms where she was having severe abdominal pain and nausea vomiting on a daily basis ultimately getting a colonoscopy and endoscopy and was diagnosed with gastritis. Since that time she had 4 years of feeling well but symptoms have returned about 3 weeks ago. She is having daily nausea vomiting and abdominal discomfort and tightness primarily in the left lower quadrant. No urinary or bowel related symptoms fevers or chills weight loss etc. She denies any other significant comorbidities. Related Data Home Medications ?Medication ?Instructions ?Recorded ?Confirmed cyanocobalamin (vitamin B-12) 500 500 mcg PO DAILY 12/07/24 mcg tablet Previous Rx's ?Medication ?Instructions ?Recorded meclizine 12.5 mg tablet 12.5 mg PO TID 20 days #60 t abs 11/03/24 fluticasone propionate 50 2 spray intranasal BID #16 g guillermina 11/08/24 mcg/actuation nasal spray,suspension (Flonase Allergy Relief) ondansetron 4 mg disintegrating 4 mg PO Q6H PRN nausea and 02/02/25 tablet vomiting 5 days #20 tabs Allergies Allergy/AdvReac Type Severity Reaction Status Date / Time latex Allergy Mild Rash Verified 12/07/24 13:47 [facility] Disclaimer: The information contained in this section may have been updated after the patient was seen, as this information can be updated by other users. Medical History Irregular periods/menstrual cycles LLQ pain delivery delivered Surgical History Hx of tubal ligation Hx of section Family History Other Diabetes Heart attack Hypertension Social History Smoking Status: Current every day smoker tobacco type: cigarettes packs per day: 1 second hand exposure: Yes alcohol intake: never counseling provided: none substance use type: denies use current occupational status: other Travel in the last 8 weeks?: None household members: significant other housing: house Have you lived/traveled outside US in past 30 days?: No Contact w/someone who lives/traveled outside US past 30 days?: No Exposure to someone with infectious disease in past 14 days?: No Do you have a fever (greater than 100.4 F or 38 C)?: No Have you tested positive for COVID-19?: No Exposed to someone with COVID-19 in past 14 days?: No Do you have a sore throat?: No Do you have a cough?: No Do you have any weakness?: No Do you have any diarrhea?: No Are you experiencing any unusual bleeding?: No Do you have any muscle aches/pain?: No Do you have any abdominal pain?: Yes Are you experiencing loss of taste or smell?: No Other Medical History Have you received the Flu Vaccine for this season: No Have you received the Pneumonia Vaccine: No ROS Obtained: Yes All systems reviewed & no additional complaints except as documented Physical Exam General General appearance: alert Respiratory Respiratory exam: Present normal lung sounds bilaterally Cardiovascular Cardiovascular exam: Present regular rate Abdominal Exam Abdominal exam: Present tenderness (Left lower quadrant tenderness to palpation) Neurological Exam Neurological exam: Present alert and oriented X3 Medical Decision Making Medical Records Screening: Per USPSTF and CDC recommendations, given the prevalence of disease in our region, it is our hospital?s policy to screen for HIV and viral Hepatitis for all patients aged 18 and over and those with ongoing risk factors. Yon Inquiry Pt receiving controlled substance: No Vital Signs: 02/02/25 20:06 Temperature 97.4 F L Temperature Source Oral Pulse Rate [Right] 78 Respiratory Rate 16 Blood Pressure [Right Arm] 125/61 Blood Pressure Mean [Right Arm] 82 Blood Pressure Source [Right Arm] Automatic Cuff Blood Pressure Position [Right Arm] Sitting 02 Sat by Pulse Oximetry 100 Oxygen Delivery Method Room Air Lab Data Lab results reviewed: Yes I reviewed the patient's lab results. Lab Results 02/02/25 20:20: Sodium 142, Potassium 3.9, Chloride 104, Carbon Dioxide 25, A nion Gap 16.9 H, BUN 12, Creatinine 0.70, Estimated Creat Clear 136, Estimated GFR 99, Est GFR ( Amer) 120, Glucose 98, Calcium 9.6, Total Bilirubin 0.7, AST 29, ALT 32, Alkaline Phosphatase 55, Total Protein 8.0, Albumin 4.7, G lobulin 3.3 H, Albumin/Globulin Ratio 1.4, Lipase 60, Serum HCG, Qual Negative, Urine Color Yellow, Urine Appearance Clear, Urine pH 6.5, Ur Specific Pecan Gap 1.010, Urine Protein Negative, Urine Glucose (UA) Negative, Urine Ketones Negative, Urine Blood Negative, Urine Nitrate Negative, Urine Bilirubin Negative, Urine Urobilinogen 1.0, Ur Leukocyte Esterase Negative, Urine RBC None, Urine WBC None, Ur Squamous Epith Cells 3-5, Urine Bacteria 3+ 02/02/25 20:50: WBC 8.7, RBC 4.37, Hgb 13.3, Hct 38.0, MCV 87.0, MCH 30.4, MCHC 35.0, RDW 12.4, Plt Count 332, MPV 10.1, Neut % (Auto) 62.7, Lymph % (Auto) 28.5, Duval % (Auto) 7.1, Eos % (Auto) 0.6, Baso % (Auto) 0.8, Neut # (Auto) 5.5, Lymph # (Auto) 2.5, Duval # (Auto) 0.6, Eos # (Auto) 0.1, Baso # (Auto) 0.1 02/02/25 20:50 02/02/25 20:20 Orders (Tests/Meds): ED MEDICATIONS Generic Name Dose Route Start Last Admin Trade Name Freq PRN Reason Stop Dose Admin Sodium Chloride 10 ml 02/02/25 20:59 02/02/25 21:01 Sodium Chloride 0.9% 10ml Syr (Rad Only) IV 03/04/25 20:58 10 ml NEEDED PRN Administration Maintain IV Site Discontinued Medications Generic Name Dose Route Start Last Admin Trade Name Freq PRN Reason Stop Dose Admin Lactated Ringer's 1,000 mls @ 999 mls/hr 02/02/25 20:30 02/02/25 20:36 Lactated Ringer's 1000 Ml Bag IV 02/02/25 21:30 999 mls/hr .Q1H1M PRESTON Administration Iopamidol 75 ml 02/02/25 20:59 02/02/25 21:02 Iopamidol-370 (76%);100ml Bottle IV 02/02/25 21:00 75 ml ONCE ONE Administration Ketorolac Tromethamine 15 mg 02/02/25 20:25 02/02/25 20:38 Ketorolac 30mg/Ml Vial IV 02/02/25 20:26 15 mg ONCE ONE Administration Ondansetron HCl 4 mg 02/02/25 20:25 02/02/25 20:36 Ondansetron 4mg/2ml Vial IV 02/02/25 20:26 4 mg ONCE ONE Administration ORDERS Category Date Time Status CT abdomen pelvis w con Stat Cat Scan 02/02/25 20:25 Completed CBC w/Auto Diff [Complete Blood Count Auto Diff] Stat Lab 11/19/25 20:50 Completed CMP [Comprehensive Metabolic Panel] Stat Lab 02/02/25 20:20 Completed HCG Qualitative, Serum Stat Lab 02/02/25 20:20 Completed Lipase Stat Lab 02/02/25 20:20 Completed UA [Urinalysis and Microscopic] Stat Lab 02/02/25 20:20 Completed Urine Culture Stat Micro 02/02/25 20:20 Received Medical Decision Narrative: 29-year-old with above history and physical this seems to be a chronic condition that has exacerbated itself however given the fact that she has had persistent nausea vomiting abdominal pain we will get a contrasted CT scan she believes that she has not had a CT scan in the past. Likelihood that that we will find an emergent medical condition is low however malignancy and other chronic related conditions are on the differential. 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 Reassessment 9:31 PM CAT scan performed which I personally interpreted which shows no intra-abdominal pathology radiology read consistent with this as well. Labs unremarkable serial exams benign patient advised to follow-up closely with Dr. Ramos. Eddie sent to her pharmacy. She will return with any worsening of her symptoms. Critical Care Critical Care Time Critical Care Time: No
[2025-02-02 20:43] LABS: Alanine Aminotransferase 32 U/L (12-78); Alkaline Phosphatase 55 U/L (38-126); Anion Gap 16.9 mEq/L (5-15); Aspartate Amino Transferase 29 U/L (14-36); Bilirubin,Total 0.7 mg/dl (0.2-1.3); Blood Urea Nitrogen 12 mg/dl (7-17); Calcium 9.6 mg/dl (8.4-10.2); Carbon Dioxide 25 mmol/L (22.0-30.0); Creatinine Clearance Estimated 136 mL/min (50-200); Creatinine,Serum 0.70 mg/dl (0.52-1.04); Estimated Glomerular Filt Rate 99 ml/min (>60); GFR (African American) 120 ML/MIN (>60); Glucose 98 mg/dl (74-100); Lipase 60 U/L (23-300); Total Protein,Serum 8.0 g/dl (6.3-8.2)
[2025-02-02 20:45] LABS: Bacteria,Urine 3+ /lpf
[2025-02-02 20:51] LABS: HCG Qualitative, Serum Negative (Negative)
[2025-02-02 20:55] LABS: Hematocrit 38.0 % (37.0-47.0); Hemoglobin 13.3 g/dL (12.2-16.2); Immature Granulocytes % 0.3 %; Mean Corpuscular HGB Conc 35.0 g/dL (31.8-35.4); Mean Corpuscular Hemoglobin 30.4 pg (27.0-31.2); Mean Corpuscular Volume 87.0 fl (81-99); Nucleated Red Blood Cells % 0 %; Platelet Count 332 K/mm3 (142-424); Red Blood Count 4.37 M/mm3 (4.20-5.40); Red Cell Distribution Width-SD 39.5 fL; White Blood Count 8.7 K/mm3 (4.8-10.8)
[2025-02-02 20:56] LABS: Albumin Level 4.7 g/dl (3.5-5.0); Albumin/Globulin Ratio 1.4 (1.1-1.8); Globulin 3.3 g/dL (1.3-3.2)
[2025-02-02] MEDS: SODIUM CHLORIDE 0.9% 10ML SYR (RAD ONLY) 10 ML IV (21:01)
[2025-02-02] MEDS: IOPAMIDOL-370 (76%);100ML BOTTLE 75 ML IV (21:02)
[2025-02-02 21:30] VITALS: BP 115/75; PULSE 69; O2SAT 99
[2025-02-02 21:37] VITALS: BP 115/75; PULSE 69; RESP 16; TEMP 36.3; O2SAT 99
== END 2025-02-02 21:39 | disposition home or self-care (01) ==
PROVIDERS: Emergency Provider Student in an Organized Health Care Education/Training Program; PCP Nurse Practitioner Family
DX: R10.32 Left lower quadrant pain (principal); R11.15 Cyclical vomiting syndrome unrelated to migraine; F41.9 Anxiety disorder, unspecified; F17.210 Nicotine dependence, cigarettes, uncomplicated
CPT/HCPCS: 74177; 80053; 81001; 83690; 84703; 85025; 87086; 96361; 96374; 96375; 99285; J1885; J2405; J7120; Q9967

== ENCOUNTER 2025-02-23 21:48 | Emergency (ER) | payer OTHER, SELFPAY ==
[2025-02-23 21:56] VITALS: BP 112/54; PULSE 65; RESP 18; TEMP 36.6; O2SAT 100; BMI 29.4
--- OUTSIDE RECORDS SUMMARY | 2025-02-23 22:01 | XMS_ITS | Clinical Summary ---
Author Organization Healthcare Address [address] [place] [address] Care Team Providers Care Retention Representative Name Role Phone Bernardo Lr MD Primary Care Provider [phone] Allergies Active Allergy Reactions Criticality Noted Date [...] [facility]-Pap Smear 10/27/2016 [facility]-Depression Screening 07/16/2024 07/17/2023 [id number] Vaccine (2 - season) 2024 11/21/2021 [facility]-Influenza [...] Non Reactive 04/14/2023 6:45 PM EST [facility] Comment:Screening for HIV 1 & 2 antibodies, and P24 antigen is NONREACTIVE. No confirmatory testing is required. Blood Venous blood specimen / Unknown Venipuncture / Unknown 04/14/2023 5:58 PM EST 04/14/2023 6:06 PM EST [facility] BLOOD ORDERABLES Final Result [facility] [address] [place] [address] * Hepatitis C Antibody - ED (04/14/2023 5:58 PM EST) Hepatitis C Antibody Negative Negative 04/14/2023 6:40 PM EST [facility] Blood Venous blood specimen / Unknown Venipuncture / Unknown 04/14/2023 5:58 PM EST 04/14/2023 6:06 PM EST [facility] BLOOD ORDERABLES Final Result [facility] [address] [place] [address] from Last 3 Months or Most Recently Relevant to Health Maintenance Insurance MEDICAID Care Teams Retention Representative Relationship Specialty Start Date End Date Bernardo Lr MD [address] [place] [address] [place] [address] PCP - General 07/28/20
--- OUTSIDE RECORDS SUMMARY | 2025-02-23 22:01 | XMS_ITS | Clinical Summary ---
Author Organization [facility] Address [address] [place] [address] Care Team Providers Care Embroidery Specialist Name Role Phone Bernardo Lr MD Primary Care Provider [phone] Allergies Active Allergy Reactions Criticality Noted Date [...] of depression 08/22/2018 Single liveborn, [facility], delivered by section 08/19/2018 Resolved Problems [...] Brief Depression Severity Measure Score 0 10/09/2022 Clemons Depression Scale Answer Date Recorded Clemons Depression Scale Total 10 08/20/2018 The thought [...] 11:08 AM EDT 10/10/2022 Comment:Urine Release to [facility] kait Lou [facility] (AMBULATORY) - 10/11/2022 7:07 AM EDT Performed at: 01 - Lab[address] [place] [id number] Go Go Dancer: Regina Carmona MD, Phone: [phone] Bernardo Lr MD MICROBIOLOGY - GENERAL ORDERAB LES Final Result Performing Organization Address [facility]/ZIP Co de Phone Number [facility] [address] [place] [address], [place] [phone] [facility] [address] [place] [address], * Hepatitis C Antibody (10/09/2022 11:07 AM [...] 11:07 AM EDT 10/10/2022 Comment:Blood Release to [facility] (AMBULATORY) - 10/10/2022 1:06 PM EDT [facility]formed at: [facility] [address] [place], [place] [id number] Go Go Dancer: Thor Redding PhD, Phone: [phone] Bernardo Lr MD LAB BLOOD ORDERABLES Final Res ult Performing Organization Address [facility]/ZIP Co de Phone Number [facility] (AMBULATORY) [address] [place] [address], [place] [phone] [facility] [address] [place] [address], [place] [phone] from Last 3 Months or Most Recently Relevant to Health Maintenance Insurance [facility] Advance Directives * CPR (Attempt to [...] pulse or is breathing): Full Care Teams Embroidery Specialist Relationship Specialty Start Date End Date Bernardo Lr MD [address] [place] [address] [place] [address] PCP - General Internal Medicine 08/09/22
--- OUTSIDE RECORDS SUMMARY | 2025-02-23 22:02 | XMS_ITS | Patient Health Record ---
Author Organization [facility] Address [address] [facility] [address] [place] [address] Care Team Providers Care Manager Of Recruiting Name Role Phone Eliana Dia Unavailable [phone] Allergies Allergen (clinical drug ingredient) Drug/Non Drug Allergy documented on EMR Reaction Allergy Type Onset Date Status LATEX EXAM GLOVES (DISPOSABLE GLOVES) Unspecified Drug Allergy 02/11/2018 Active Reason For Referral No Information Problems Problem Type SNOMED Code ICD Code Onset Dates Problem Status W/U Status Risk Notes Problem Urine test negative (418886833) Encounter for test with result negative (Z32.02) 0 Active confirmed Urine test negative Plan Of Treatment No Information Medical (General) History Medical History History ICD Code Anxiety Depression UTI's Recurrent Yeast Infection FLAGYL 500 MG ORAL TABLET, ORAL Surgical History Surgery Date(Month/Year) section - 12-26-15, Se ction - 06-03-17
--- NOTE | 2025-02-23 22:05 | XR_ITS ---
PROCEDURE INFORMATION: Exam: XR Left Wrist Exam date and time: 02/23/2025 10:05 PM Age: 29 years old Clinical indication: Pain; Wrist; Left; Additional info: Wrist pain TECHNIQUE: Imaging protocol: Radiologic exam of the left wrist. Views: 3 or more views. COMPARISON: CR XR WRIST LT 2V 07/07/2024 11:21 PM FINDINGS: Bones/joints: Normal. Soft tissues: Normal. IMPRESSION: No acute findings.
--- NOTE | 2025-02-23 22:05 | XR_ITS ---
PROCEDURE INFORMATION: Exam: XR Left Hand Exam date and time: 02/23/2025 10:07 PM Age: 29 years old Clinical indication: Pain; Finger(s) and wrist; Left; Additional info: Thumb injury TECHNIQUE: Imaging protocol: Radiologic exam of the left hand. Views: 3 or more views. COMPARISON: CR Wrist L 02/23/2025 10:05 PM FINDINGS: Bones/joints: Cortical irregularity in the trapezium. Soft tissues: Normal. IMPRESSION: Cortical irregularity in the trapezium. Suspicious for a nondisplaced fracture. CT or MRI recommended for additional evaluation.
[2025-02-23 23:16] VITALS: BP 112/54; PULSE 65; RESP 16; TEMP 36.6; O2SAT 100
--- NOTE | 2025-02-23 23:16 | ED_ITS ---
Discharge Plan Disposition Patient Disposition: Home, Self-Care Condition: Good Prescriptions Prescriptions: No Action cyanocobalamin (vitamin B-12) 500 mcg tablet 500 mcg PO DAILY fluticasone propionate [Flonase Allergy Relief] 50 mcg/actuation spray,murguia spension 2 spray intranasal BID Qty: 16 3RF Rx Instructions: administer into each nostril meclizine 12.5 mg tablet 12.5 mg PO TID 20 Days Qty: 60 0RF ondansetron 4 mg tablet,disintegrating 4 mg PO Q6H PRN (Reason: nausea and vomiting) 5 Days Qty: 20 0RF Referrals Follow up/Referrals: Can Arteaga DO [Staff Physician, Orthopedics] - See instructions Lin Madrigal APRN [Primary Care Provider, Medical] - See instructions Activity Restrictions/Add. Instructions Additional Instructions/Restrictions: I want you to call Dr. Arteaga's orthopedic clinic for follow up and further m anagement of your wrist fracture. You can take Ibuprofen and Tylenol for pain. If you have any new or worsening symptoms please return. Clinical Impressions Clinical Impression: Closed fracture of trapezium of left wrist Qualifiers: Encounter type: initial encounter Fracture alignment: nondisplaced Qualified Code(s): S62.175A - Nondisplaced fracture of trapezium [larger multangular], left wrist, initial encounter for closed fracture Print Language Print Language: Thai Discharge ED Provider: Kulwant Wilson Adult HPI General Chief complaint: Extremity Injury, Upper Stated complaint: fell earlier today pain in left wrist and thumb Time Seen by Provider: 02/23/25 21:52 Mode of Arrival: Ambulatory Source of Information: Patient Description of Symptoms (Recalled from ER Triage Doc. by RN): Pt states she had a trip and fall without LOC today. Pt reports pain to left thumb and wrist that she rates 8/10. History of Present Illness HPI narrative: Is a 29-year-old female patient, with no significant past medical history, who is presenting to the emergency department today for evaluation of left wrist pain. Patient tells me that she slipped and fell onto an outstretched hand and she has been having wrist pain along the radial aspect of the wrist since that time. She has not had any numbness or tingling in her fingers. But she does tell me that some pain does radiate up the forearm towards the elbow. She has not had any difficulty with range of motion of the fingers, thumb, wrist, or elbow. She did not hit her head and did not lose consciousness. Related Data Home Medications ?Medication ?Instructions ?Recorded ?Confirmed cyanocobalamin (vitamin B-12) 500 500 mcg PO DAILY 12/07/24 mcg tablet Previous Rx's ?Medication ?Instructions ?Recorded meclizine 12.5 mg tablet 12.5 mg PO TID 20 days #60 t abs 11/03/24 fluticasone propionate 50 2 spray intranasal BID #16 g guillermina 11/08/24 mcg/actuation nasal spray,suspension (Flonase Allergy Relief) ondansetron 4 mg disintegrating 4 mg PO Q6H PRN nausea and 02/02/25 tablet vomiting 5 days #20 tabs Allergies Allergy/AdvReac Type Severity Reaction Status Date / Time latex Allergy Mild Rash Verified 12/07/24 13:47 [facility] Disclaimer: The information contained in this section may have been updated after the patient was seen, as this information can be updated by other users. Medical History Irregular periods/menstrual cycles LLQ pain delivery delivered Surgical History Hx of tubal ligation Hx of section Family History Other Diabetes Heart attack Hypertension Social History Smoking Status: Current every day smoker tobacco type: cigarettes packs per day: 1 second hand exposure: Yes alcohol intake: never counseling provided: none substance use type: denies use current occupational status: other Travel in the last 8 weeks?: None household members: significant other housing: house Have you lived/traveled outside US in past 30 days?: No Contact w/someone who lives/traveled outside US past 30 days?: No Exposure to someone with infectious disease in past 14 days?: No Do you have a fever (greater than 100.4 F or 38 C)?: No Have you tested positive for COVID-19?: No Exposed to someone with COVID-19 in past 14 days?: No Do you have a sore throat?: No Do you have a cough?: No Do you have any weakness?: No Do you have any diarrhea?: No Are you experiencing any unusual bleeding?: No Do you have any muscle aches/pain?: No Do you have any abdominal pain?: No Are you experiencing loss of taste or smell?: No Other Medical History Have you received the Flu Vaccine for this season: No Have you received the Pneumonia Vaccine: No ROS Obtained: Yes Systems reviewed as appropriate & no additional complaints except as documented Physical Exam General General appearance: other (See MDM) Respiratory Respiratory exam: Present other (See MDM) Cardiovascular Cardiovascular exam: Present other (See MDM) Neurological Exam Neurological exam: Present other (See MDM) Medical Decision Making Medical Records Medical records reviewed: Yes I reviewed the patient's medical records. Screening: Per USPSTF and CDC recommendations, given the prevalence of disease in our region, it is our hospital?s policy to screen for HIV and viral Hepatitis for all patients aged 18 and over and those with ongoing risk factors. Yon Inquiry Pt receiving controlled substance: No Yon was queried for this patient: No Vital Signs: 02/23/25 21:56 Temperature 97.8 F Temperature Source Oral Pulse Rate [Left] 65 Respiratory Rate 18 Blood Pressure [Right Arm] 112/54 L Blood Pressure Mean [Right Arm] 73 Blood Pressure Source [Right Arm] Automatic Cuff Blood Pressure Position [Right Arm] Sitting 02 Sat by Pulse Oximetry 100 Oxygen Delivery Method Room Air Orders (Tests/Meds): ORDERS Category Date Time Status Hand XR left minimum 3 views [XR hand LT min 3V] Stat Exams 02/23/25 22:05 Completed Wrist XR left minimum 3 views [XR wrist LT min 3V] Stat Exams 02/23/25 22:05 Completed Medical Decision Narrative: In summary, this is a 29-year-old female patient who is presenting to the emergency department today for evaluation of left wrist pain after falling onto an outstretched hand at home. She has no comorbidities that would complicate her medical management or care. On initial evaluation of the patient they were resting comfortably in no acute distress and nontoxic in appearance. They are hemodynamically stable, saturating well room air, and are neurologically intact. On physical examination the patient does have tenderness with lateral to medial compression of the level of the wrist. She has no tenderness in the anatomical snuffbox tenderness she has no tenderness about the proximal forearm or the elbow. She has full range of motion of the elbow and the glenohumeral joint. Pincer communications agent mechanism of the thumb and index finger is intact. She has intact abduction and adduction of the fingers against resistance. Intact flexion and extension of the fingers as well. Differential diagnosis includes carpal fracture, metacarpal fracture, distal radius fracture, among others. Workup was initiated with x-rays of the left hand and left wrist. X-rays were personally interpreted by me and demonstrate no evidence of thumb fracture. Official radiology read does note that there is a subtle cortical irregularity of the trapezium which may indicate fracture. Given that she is having pain on the radial aspect of the wrist and has has cortical irregularity it is likely that she has a fracture of the trapezium. I have placed the patient in a prefabricated thumb spica splint. I have asked her to follow-up with Dr. Arteaga in the orthopedic clinic. At this time all questions have been answered and all parties are agreeable with the decision to discharge home Critical Care Critical Care Time Critical Care Time: No
== END 2025-02-23 23:21 | disposition home or self-care (01) ==
PROVIDERS: Emergency Provider Student in an Organized Health Care Education/Training Program; PCP Nurse Practitioner Family
DX: S62.175A Nondisplaced fracture of trapezium [larger multangular], left wrist, initial encounter for closed fracture (principal); M79.645 Pain in left finger(s); W19.XXXA Unspecified fall, initial encounter
CPT/HCPCS: 73110; 73130; 99283

== ENCOUNTER 2025-03-14 12:32 | Outpatient (CLI) | payer OTHER, SELFPAY ==
--- OUTSIDE RECORDS SUMMARY | 2025-03-14 12:35 | XMS_ITS | Patient Health Record ---
Author Organization [facility] [place] Address [address] [facility] [address] [place] [address] Care Team Providers Care Outbound Sales Representative Name Role Phone Eliana Dia Unavailable [phone] Allergies Allergen (clinical drug ingredient) Drug/Non Drug Allergy documented on EMR Reaction Allergy Type Onset Date Status LATEX EXAM GLOVES (DISPOSABLE GLOVES) Unspecified Drug Allergy 02/11/2018 Active Reason For Referral No Information Problems Problem Type SNOMED Code ICD Code Onset Dates Problem Status W/U Status Risk Notes Problem Urine test negative (730391990) Encounter for test with result negative (Z32.02) 0 Active confirmed Urine test negative Plan Of Treatment No Information Medical (General) History Medical History History ICD Code Anxiety Depression UTI's Recurrent Yeast Infection FLAGYL 500 MG ORAL TABLET, ORAL Surgical History Surgery Date(Month/Year) section - 12-26-15, Se ction - 06-03-17
--- OUTSIDE RECORDS SUMMARY | 2025-03-14 12:35 | XMS_ITS | Clinical Summary ---
Author Organization [facility] yste Address [address] [place] [address] Care Team Providers Care Sales Architect Name Role Phone Bernardo Lr MD Primary Care Provider [phone] Allergies Active Allergy Reactions Criticality Noted Date [...] of depression 08/22/2018 Single liveborn, born in [facility], delivered by section 08/19/2018 Resolved [...] Brief Depression Severity Measure Score 0 10/09/2022 [place] Depression Scale Answer Date Recorded [place] Depression Scale Total 10 08/20/2018 The thought [...] 11:08 AM EDT 10/10/2022 Comment:Urine Release to [facility] kait Lou [facility] (AMBULATORY) - 10/11/2022 7:07 AM EDT Performed at: 01 - Lab[address] [place] [id number] Account Leader: Regina Carmona MD, Phone: [phone] Bernardo Lr MD MICROBIOLOGY - GENERAL ORDERAB LES Final Result Performing Organization Address [facility]/ZIP Co de Phone Number [facility] [address] [place] [address], [place] [phone] [facility] [address] [place] [address], * Hepatitis C Antibody (10/09/2022 11:07 AM [...] 11:07 AM EDT 10/10/2022 Comment:Blood Release to [facility] (AMBULATORY) - 10/10/2022 1:06 PM EDT Performed at: - [facility] [address] [place], [place] [id number] Account Leader: Thor Redding PhD, Phone: [phone] Bernardo Lr MD LAB BLOOD ORDERABLES Final Res ult Performing Organization Address [facility]/ZIP Co de Phone Number [facility] (AMBULATORY) [address] [place] [address], [place] [phone] [facility] [address] [place] [address], [place] [phone] from Last 3 Months or Most Recently Relevant to Health Maintenance Insurance [facility] Advance Directives * CPR (Attempt to [...] pulse or is breathing): Full Care Teams Sales Architect Relationship Specialty Start Date End Date Bernardo Lr MD [address] [place] [address] [place] [address] PCP - General Internal Medicine 08/09/22
--- OUTSIDE RECORDS SUMMARY | 2025-03-14 12:35 | XMS_ITS | Clinical Summary ---
Author Organization Healthcare Address [address] [place] [address] Care Team Providers Care Health Lead Name Role Phone Bernardo Lr MD Primary Care Provider [phone] Allergies Active Allergy Reactions Criticality Noted Date [...] [facility]-Pap Smear 10/27/2016 [facility]-Depression Screening 07/16/2024 07/17/2023 LIF-[id number]-44 Vaccine (2 - season) 2024 11/21/2021 [facility]-Influenza [...] Non Reactive 04/14/2023 6:45 PM EST [facility] Comment:Screening for HIV 1 & 2 antibodies, and P24 antigen is NONREACTIVE. No confirmatory testing is required. Blood Venous blood specimen / Unknown Venipuncture / Unknown 04/14/2023 5:58 PM EST 04/14/2023 6:06 PM EST [facility] BLOOD ORDERABLES Final Result [facility] [address] [place] [address] * Hepatitis C Antibody - ED (04/14/2023 5:58 PM EST) Hepatitis C Antibody Negative Negative 04/14/2023 6:40 PM EST [facility] Blood Venous blood specimen / Unknown Venipuncture / Unknown 04/14/2023 5:58 PM EST 04/14/2023 6:06 PM EST [facility] BLOOD ORDERABLES Final Result [facility] [address] [place] [address] from Last 3 Months or Most Recently Relevant to Health Maintenance Insurance [employer] Care Teams Health Lead Relationship Specialty [place] [id number] PCP - General 07/28/20
--- NOTE | 2025-03-14 12:38 | XR_ITS ---
FINAL REPORT CLINICAL HISTORY: left wrist fx COMPARISON: 02/23/2025 FINDINGS: AP, oblique, and lateral views of the left wrist were obtained. There is no acute fracture or dislocation. There is a chronic appearing irregularity along the base of the third metacarpal. The joint spaces are preserved. The soft tissues are normal. IMPRESSION: No acute osseous abnormality of the left wrist. Reviewed, Interpreted and Dictated by Amrita Ahuja MD Transcribed by Barbie Swanson Authenticated and [facility]
== END 2025-03-14 23:59 | disposition home or self-care (01) ==
LOC: RAD 12:33
PROVIDERS: PCP Nurse Practitioner Family; Visit Provider Physician Assistant
DX: S66.912A Strain of unspecified muscle, fascia and tendon at wrist and hand level, left hand, initial encounter (principal); S63.502A Unspecified sprain of left wrist, initial encounter
CPT/HCPCS: 73110